=== PATIENT | male | born 1950 | race Caucasian/White ===

== ENCOUNTER → 2023-10-31 10:23 | Outpatient (REF) | payer MEDICAID, OTHER, SELFPAY | LOC: HWRAD 10:23 | PROVIDERS: ATTENDING PHYSICIAN Specialist; FAMILY PHYSICIAN Internal Medicine | DX: C67.4 Malignant neoplasm of posterior wall of bladder (principal) | CPT/HCPCS: 74178; Q9967 ==

== ENCOUNTER 2023-11-24 06:28 | Day surgery (SDC) | payer OTHER, SELFPAY ==
[2023-11-24] VITALS (12 sets, daily range): BP systolic 133–186; BP diastolic 63–90; BMI 29.0
[2023-11-24 08:45] LABS: Glucose - Point of Care 172 mg/dl (70-99)
[2023-11-24] MEDS: NORMOSOL-R 1000 IV (08:52)
[2023-11-24] MEDS: CYSVIEW KIT 100 MG INTRAVES (08:59)
[2023-11-24] MEDS: Pyridium 200 MG PO (11:04)
[2023-11-24] MEDS: SYRINGE NON-PUMP 50 ML IRRIG ×2 (11:07→11:08)
[2023-11-24] MEDS: SYRINGE NON-PUMP 50 MG IRRIG ×2 (11:07→11:08)
[2023-11-24] MEDS: DILAUDID 0.25 MG IV (11:19)
[2023-11-24 12:32] LABS: Glucose - Point of Care 188 mg/dl (70-99)
== END 2023-11-24 14:30 ==
LOC: SDS 06:28
PROVIDERS: ATTENDING PHYSICIAN Specialist
DX: C67.4 Malignant neoplasm of posterior wall of bladder (principal); Z86.008 Personal history of in-situ neoplasm of other site; Z85.51 Personal history of malignant neoplasm of bladder
CPT/HCPCS: 52234; 51720; C9738; 88307; 82962; 93005; A9589; J9201

== ENCOUNTER → 2024-02-16 09:49 | Outpatient (REF) | payer OTHER, SELFPAY | LOC: WDC 09:49 | PROVIDERS: ATTENDING PHYSICIAN Surgery; FAMILY PHYSICIAN Internal Medicine | DX: N63.20 Unspecified lump in the left breast, unspecified quadrant (principal); N63.22 Unspecified lump in the left breast, upper inner quadrant | CPT/HCPCS: 76642; 77062; 77066 ==

== ENCOUNTER 2024-08-13 22:39 | Inpatient (IN) | payer MEDICARE, OTHER, SELFPAY ==
[2024-08-13] VITALS (7 sets, daily range): BP systolic 126–166; BP diastolic 70–87; BMI 26.5
[2024-08-13 17:40] LABS: % Basophils 0.3 % (0-2); % Immature Granulocytes 0.4 % (0-0.5); % Lymphocytes 8.8 % (20.5-51.1); % Monocytes 7.8 % (1.7-9.3); % Neutrophils 82.7 % (42.2-75.2); Absolute Immature Granulocytes 0.1 10^3/uL (0-0.05); Absolute Lymphocytes 1.4 10^3/uL (1.2-3.4); Absolute Monocytes 1.2 10^3/uL (0.1-0.6); Absolute Neutrophils 12.9 10^3/uL (1.4-6.5); Hematocrit 35.6 % (39.0-52.0); Hemoglobin 12.1 g/dL (13.0-18.0); Mean Corpuscular Volume 88.1 fL (80.0-94.0); Mean Platelet Volume 9.1 fL (7.4-10.4); Nucleated Red Blood Cells % 0 % (-); Platelet Count 345 10^3/uL (130-400); Red Blood Cell Count 4.04 10^6/uL (4.70-6.10); Red Cell Dist. Width 13.7 % (11.5-14.5); White Blood Cell Count 15.6 10^3/uL (4.8-10.8)
--- NOTE | 2024-08-13 17:42 | ED.GENMED ---
History of Present Illness
<Seven Ballard MD, Resident - Last Filed: 08/13/24 21:00>
General
Chief Complaint: Chest Problem
Source: patient
Time Seen by Provider: 08/13/24 17:42
Nursing documentation reviewed up to this point in time: agreed with
Travel History
Have you traveled to any high risk areas for coronavirus over the past 14 days?: No
Have you had any contact with someone who has COVID-19?: No
Do you have any symptoms of coronavirus? Fever > 100 degrees, chills, cough, shortness of breath, sore throat, loss of taste or smell, muscle aches, or headache?: No
History of Present Illness
History of Present Illness:
73-year-old male with PMH of A-fib, DVT, left hemiplegia, vascular dementia, essential hypertension, hyperlipidemia, GERD, bladder cancer, diet-controlled diabetes mellitus, autism, anxiety and depression, chronic pain who presented to the emergency
department from [facility] stating that he has chest pain, nausea and vomiting since yesterday. He reports that he called the ambulance on himself due to concerns that he has something going on in his chest.
Past History
<Seven Ballard MD, Resident - Last Filed: 08/13/24 21:00>
Past History
ED Past Medical History: Arrthythmia (fib), CVA, GERD, HTN, Hypercholesterolemia, NIDDM and Psychiatric
Patient has exhibited threatening behavior?: No
Social History
Tobacco: Non-smoker
Alcohol: None
Drug: None
[facility]: [facility]
Review of Systems
<Seven Ballard MD, Resident - Last Filed: 08/13/24 21:00>
Review of Systems
Allergies reviewed?: Yes
All Other Systems: ROS reviewed and negative except as documented in HPI and ROS
Phy Exam
<Seven Joao Arinze, MD, Resident - Last Filed: 08/13/24 21:00>
General Physical Exam
General Presentation: no apparent distress
General age: appears stated age
General Skin: warm and dry
General Habitus: frail
General Mental: alert
General Hydration: dry mucous membranes
Cardiovascular Exam
Cardiovascular Exam: regular rate/rhythm, no edema and normal peripheral pulses
Pulmonary Exam
Pulmonary Exam: other (Bilateral crackles)
Cough: coarse cough
Respirations: rapid
Breath Sounds: Crackles: generalized
Gastrointestinal Exam
Gastrointestinal Exam: normal bowel sounds, non tender, soft and non distended
Neurological Exam
Neurological Exam: alert and oriented x3
Skin Exam
Skin Exam: normal color and warm/dry
Psychiatric Exam
Psychiatric Exam: normal mood/affect
Sepsis
<Seven Ballard MD, Resident - Last Filed: 08/13/24 21:00>
Sepsis Screening
Sepsis Assessment: Sepsis
Sepsis Screening: Worsening O2 Saturation
Sepsis Screen
Sepsis Screen: Sepsis
Date: 08/13/24
Time: 21:00
<Angel Colmenares, DO - Last Filed: 08/13/24 19:21>
Sepsis Screen
Sepsis Screen: Sepsis
Date: 08/13/24
Time: 19:19
Course
<Seven Ballard MD, Resident - Last Filed: 08/13/24 21:00>
Orders/Labs/Results
Orders:
Orders
08/13/24 17:15
Electrocardiogram (*1) Urgent
Reason for Study: Chest Pain
EKG- Treatment ONCE
08/13/24 17:30
Comprehensive Metabolic Panel Urgent
08/13/24 17:31
Complete Blood Count/With Diff Urgent
Troponin I Urgent
08/13/24 17:57
CR Chest - 2 Views Urgent
Comment:
Reason For Exam: Chest pain
08/13/24 17:58
Urinalysis Reflex To Culture Urgent
08/13/24 18:01
0.9% Sodium Chloride 1000 ml [Nss] 1,000 ml IV BOLUS
08/13/24 18:03
O2 Therapy [RESP] Stat
Titrate/Wean O2 to maintain O2 sat greater than (%): 92
08/13/24 18:07
IV Insert/Care/Rem.- Treatment PRN
08/13/24 18:09
Vital Signs- Treatment ONCE
Frequency: Hourly
COVID-19 Antigen Urgent
Source: Nasal Swab
Influenza A+B Rapid Molecular Urgent
MICKIE Source: Nasal Swab
Specimen Description:
Pulse Ox/cont/shift [RESP] Stat
Quantity: 1
08/13/24 18:43
Lactic Acid Urgent
08/13/24 19:23
Cefepime HCl [Maxipime] 2,000 mg IV NOW STA
08/13/24 19:27
0.9% Sodium Chloride 1000 ml [Nss] 1,500 ml IV NOW STA
08/13/24 19:35
Vancomycin [Vancocin] 2,000 mg 0.9% Sodium Chloride 500 ml [Nss] 500 ml IV NOW
08/13/24 19:42
MRSA Screen Routine
MICKIE Source: Nose
Specimen Description:
Respiratory Syncytial Virus Urgent
MICKIE Source: Nasal Swab
Specimen Description:
Date Specimen was Collected: 08/13/24
Time Specimen was Collected: 19:22
Abnormal Lab Results
08/13/24 08/13/24 08/13/24
17:30 17:31 18:43
WBC 15.6 H 10^3/uL
(4.8-10.8)
RBC 4.04 L 10^6/uL
(4.70-6.10)
Hgb 12.1 L g/dL
(13.0-18.0)
Hct 35.6 L %
(39.0-52.0)
Abs Immat Gran (auto) 0.1 H 10^3/uL
(0-0.05)
Absolute Neuts (auto) 12.9 H 10^3/uL
(1.4-6.5)
Absolute Monos (auto) 1.2 H 10^3/uL
(0.1-0.6)
Neutrophils % 82.7 H %
(42.2-75.2)
Lymphocytes % 8.8 L %
(20.5-51.1)
BUN 27 H mg/dl
(9-20)
Creatinine 1.5 H mg/dL
(0.7-1.3)
Glucose 289 H mg/dl
(70-99)
Lactic Acid 3.7 H mmol/L
(0.7-2.0)
08/13/24 17:31
08/13/24 17:30
Vital Signs
Initial and Last Documented VS:
Initial Vital Signs
Temp Pulse Resp Pulse Ox
98.4 F 117 20 88
08/13/24 17:16 08/13/24 17:16 08/13/24 17:16 08/13/24 17:16
Last Documented Vital Signs
Temp Pulse Resp BP Pulse Ox
98.4 F 111 27 130/86 92
08/13/24 17:16 08/13/24 18:30 08/13/24 18:30 08/13/24 18:00 08/13/24 18:30
<Angel HMallory Colmenares DO - Last Filed: 08/13/24 19:21>
Orders/Labs/Results
Orders:
Orders
08/13/24 17:15
Electrocardiogram (*1) Urgent
Reason for Study: Chest Pain
EKG- Treatment ONCE
08/13/24 17:30
Comprehensive Metabolic Panel Urgent
08/13/24 17:31
Complete Blood Count/With Diff Urgent
Troponin I Urgent
08/13/24 17:57
CR Chest - 2 Views Urgent
Comment:
Reason For Exam: Chest pain
08/13/24 17:58
Urinalysis Reflex To Culture Urgent
08/13/24 18:01
0.9% Sodium Chloride 1000 ml [Nss] 1,000 ml IV BOLUS
08/13/24 18:03
O2 Therapy [RESP] Stat
Titrate/Wean O2 to maintain O2 sat greater than (%): 92
08/13/24 18:07
IV Insert/Care/Rem.- Treatment PRN
08/13/24 18:09
Vital Signs- Treatment ONCE
Frequency: Hourly
COVID-19 Antigen Urgent
Source: Nasal Swab
Influenza A+B Rapid Molecular Urgent
MICKIE Source: Nasal Swab
Specimen Description:
Pulse Ox/cont/shift [RESP] Stat
Quantity: 1
08/13/24 18:43
Lactic Acid Urgent
08/13/24 19:23
Cefepime HCl [Maxipime] 2,000 mg IV NOW STA
08/13/24 19:27
0.9% Sodium Chloride 1000 ml [Nss] 1,500 ml IV NOW STA
08/13/24 19:35
Vancomycin [Vancocin] 2,000 mg 0.9% Sodium Chloride 500 ml [Nss] 500 ml IV NOW
08/13/24 19:42
MRSA Screen Routine
MICKIE Source: Nose
Specimen Description:
Respiratory Syncytial Virus Urgent
MICKIE Source: Nasal Swab
Specimen Description:
Date Specimen was Collected: 08/13/24
Time Specimen was Collected: 19:22
Abnormal Lab Results
08/13/24 08/13/24 08/13/24
17:30 17:31 18:43
WBC 15.6 H 10^3/uL
(4.8-10.8)
RBC 4.04 L 10^6/uL
(4.70-6.10)
Hgb 12.1 L g/dL
(13.0-18.0)
Hct 35.6 L %
(39.0-52.0)
Abs Immat Gran (auto) 0.1 H 10^3/uL
(0-0.05)
Absolute Neuts (auto) 12.9 H 10^3/uL
(1.4-6.5)
Absolute Monos (auto) 1.2 H 10^3/uL
(0.1-0.6)
Neutrophils % 82.7 H %
(42.2-75.2)
Lymphocytes % 8.8 L %
(20.5-51.1)
BUN 27 H mg/dl
(9-20)
Creatinine 1.5 H mg/dL
(0.7-1.3)
Glucose 289 H mg/dl
(70-99)
Lactic Acid 3.7 H mmol/L
(0.7-2.0)
08/13/24 17:31
08/13/24 17:30
Vital Signs
Initial and Last Documented VS:
Initial Vital Signs
Temp Pulse Resp Pulse Ox
98.4 F 117 20 88
08/13/24 17:16 08/13/24 17:16 08/13/24 17:16 08/13/24 17:16
Last Documented Vital Signs
Temp Pulse Resp BP Pulse Ox
98.4 F 111 27 130/86 92
08/13/24 17:16 08/13/24 18:30 08/13/24 18:30 08/13/24 18:00 08/13/24 18:30
<Seven Ballard MD, Resident - Last Filed: 08/13/24 21:00>
MDM/Problems Addressed
MDM/Problems Addressed:
73-year-old male with PMH of diet controlled diabetes mellitus, hypertension, chronic pain syndrome who presented to the emergency department with chest pain, nausea and vomiting that worsened in the past 24 hours. While in the ED, he was
tachycardic, tachypneic, hypoxic saturating at 88% on room air and 92% on 4 L NC O2. Differential diagnosis include severe sepsis Secondary to CAP vs acute viral infection from COVID, flu, or RSV. His lab was remarkable for leukocytosis WBC count
15.6 with left shift, troponin was negative. He appeared dehydrated with elevated BUN and creatinine. COVID-19, flu, RSV serologies pending. Lactic acid level, CXR, urinalysis pending. In the meantime, we will give sepsis protocol IV bolus
normal saline
Chronic conditions affecting care: Neurological disorder
<Seven Ballard MD, Resident - Last Filed: 08/13/24 21:00>
*Pulse Oximetry
Patient hypoxic: yes
*EKG
Interpreted by ED Provider?: Yes
Interpretation: abnormal
Comparison EKG: changes noted
Heart Rate: 113
Rate: tachycardiac
Rhythm: sinus
[place]: left axis deviation
Interval: long QT
QRS Pattern: normal QRS
Ischemia: no ischemia
*Critical Care Note
Total Time (30-74mins, 75-104mins- exclusive of procedures): Not Applicable
Data Reviewed
Review of Other/Old Records Reveals: Labs (Creatinine 1.2)
<Seven Ballard MD, Resident - Last Filed: 08/13/24 21:00>
Update Note
Update Note:
19: 30 lactic acid level 3.7. COVID-19 serology negative. CXR positive for left lower lobe pneumonia/atelectasis. Patient will most likely need hospitalization for antibiotics and supportive treatments.
ED Attending Note
<Seven Ballard MD, Resident - Last Filed: 08/13/24 21:00>
-
Portions of this chart may have been created with voice recognition software.� Occasional wrong word or��sound alike� substitutions may have occurred due to the inherent limitations of voice recognition software.
<Angel Colmenares, DO - Last Filed: 08/13/24 19:21>
ED Attending Note
Patient seen and examined by attending physician: Yes
I performed a history and physical exam of patient and discussed management with resident, I reviewed resident's note and agree with documented findings and plan of care.: Yes
ED Attending Note:
I agree with the residents note. Patient presents with chest pain, cough, nausea vomiting diarrhea. Patient states he is having pain in his chest at the time my evaluation. He is observed to have a moist rattling cough. Patient seems somewhat
confused than unable to provide a detailed history.
General: Awake, Alert, to person.
Vitals: Tachycardic, hypoxic
Head: Atraumatic
Eyes: Pupils equal, EOMI
Throat: Airway intact, no exudates
Neck: Trachea midline
Lungs: Crackles bilateral bases
Heart: Tachycardic, regular rate, no murmurs
Abd: Soft, Nontender, No pulsatile mass
Neuro: Nonfocal
Skin: Warm, dry, no rash
Extremities: pulses equal b/l, no edema
Patient presents with cough, hypoxia.
White blood cell count elevated 15.6. He appears dry and his BUN and creatinine are mildly elevated. Lactic acid elevated at 3.7. 1 L of IV fluid ordered as a bolus. Given his elevated lactic acid and no evidence of a history of heart failure I
will increase the fluid bolus to a sepsis fluid bolus. Awaiting chest x-ray but likely patient has pneumonia will require hospitalization for supportive care and IV antibiotics.
Discharge Plan
Departure
Patient Disposition: Home (Routine Discharge)
Date of Disposition: 08/13/24
Time of Disposition: 20:44
Admit to: Med/Surg
Admit to doctor: Cole Buenrostro
Patient with high blood pressure during this ER visit?: Yes
Condition: Fair
Covid-19: Not Applicable
Discharge Problem:
Sepsis, HTN (hypertension), Diabetes
Prescriptions:
No Action
sennosides 8.6 mg Tablet
8.6 mg PO DAILY
acetaminophen [Tylenol] 325 mg Tablet
650 mg PO Q6H MDD 3 gm PRN (Reason: mild pain, fever > 100.5)
atorvastatin 20 mg Tablet
20 mg PO DAILY
lidocaine [Lidocaine Pain Relief] 4 % Adhesive Patch,Medicated
1 patch TOPICAL DAILY
Rx Instructions:
remove @ HS
trazodone 50 mg Tablet
25 mg PO HS
clopidogrel 75 mg Tablet
75 mg PO DAILY
Patient Comments:
this was stopped per surgeon's nstructions- [facility] nurse unsure of the date.
Rx Instructions:
per penitentiary
meloxicam 7.5 mg Tablet
7.5 mg PO BID
docusate sodium [Colace] 100 mg Capsule
200 mg PO DAILY
metoprolol tartrate 25 mg Tablet
12.5 mg PO DAILY
Metamucil Fiber Singles 3.4 gram Powder In Packet
1 packet PO DAILY
loratadine 10 mg Capsule
10 mg PO DAILY
aspirin 81 mg Capsule
81 mg PO DAILY
Patient Comments:
this was stopped per surgeon's instructions- [facility] nurse unsure of date.
magnesium hydroxide [Milk of Magnesia] 400 mg/5 mL Suspension
30 ml PO HSPRN PRN (Reason: No BM x 3 days)
bisacodyl [Dulcolax (bisacodyl)] 10 mg Suppository
10 mg [place] DAILY PRN (Reason: IF NO BM AFTER MOM)
amlodipine [Norvasc] 10 mg Tablet
10 mg PO DAILY
calcium carbonate [Tums] 200 mg calcium (500 mg) Tablet,Chewable
200 mg PO QID PRN (Reason: indigestion)
Referrals:
Jc Whitaker MD [Family Provider] -
Interventions
Interventions:
*Risk Screen - Suicide Last Done: 08/13/24 17:20
*General Assessment Last Done: 08/13/24 17:20
*Neglect/Abuse Screening Last Done: 08/13/24 17:20
ED- Fall Risk Assessment Last Done: 08/13/24 17:22
*ED COVID-19 Vaccine History Last Done: 08/13/24 17:20
ED- Cardiac Assessment Last Done: 08/13/24 17:21
ED- Pulmonary Assessment Last Done: 08/13/24 17:21
Discharge Date and Time
Print Language: UPPER SORBIAN
[2024-08-13 17:50] LABS: ALT (SGPT) 22 U/L (0-50); AST (SGOT) 21 U/L (17-59); Alkaline Phosphatase 97 U/L (38-126); Blood Urea Nitrogen 27 mg/dl (9-20); Calcium 9.3 mg/dl (8.4-10.2); Carbon Dioxide 22 mmol/L (22-30); Chloride 104 mmol/L (98-107); Estimated Creatinine Clearance 41 ml/min; Glucose 289 mg/dl (70-99); Potassium 3.7 mmol/L (3.5-5.1); Sodium 140 mmol/L (135-145); Total Bilirubin 0.9 mg/dl (0.2-1.3); Total Protein 6.8 g/dl (6.3-8.2); eGFR 48.25
[2024-08-13 18:02] LABS: Troponin I 0.022 ng/ml
[2024-08-13] MEDS: NSS 1000 IV (18:08)
[2024-08-13 19:00] LABS: Lactic Acid 3.7 mmol/L (0.7-2.0)
[2024-08-13 19:01] LABS: COVID-19 Antigen Negative (Negative)
[2024-08-13] MEDS: MAXIPIME 2000 MG IV (19:43)
[2024-08-13] MEDS: NSS 1500 ML IV (19:44)
[2024-08-13] MEDS: VANCOCIN 540 MG IV (21:25)
--- NOTE | 2024-08-13 22:17 | HPS.HSE ---
Family Physician
-
Family Physician: Jc Whitaker
Chief Complaint
-
Cough, N/V
History of Present Illness
Patient is a 73y M with PMH significant for ASCVD/ prior CVA, hypertension and DM-II who presents to ED from local [place] complaining of cough and left-sided chest discomfort. Patient states that he had an episode of emesis earlier today at the [place].
Following this he developed a harsh cough and some left-sided chest discomfort. Patient was transported to the ED for further evaluation. Patient states that he was feeling well prior to the episode of emesis. He denies any nausea at present.
Medical History
Past Medical History
Past Medical History: Reports Other
Additional Past Medical History:
ASCVD
Left Hemiparesis s/p CVA
Hypertension
DM-II
Atrial Fibrillation - Unknown Type
Anxiety / Depression
Autism
GERD
Bladder Cancer
Past Surgical History: Reports Other
Additional Past Surgical History:
TURBT
Social History
Tobacco: Non-smoker
Alcohol: None
Drug: None
Living: Group Home
Family History
Family History: Not pertinent
Allergies / Home Medications
Allergies reflects when Allergies were last updated in [facility].
Home Medications with original date entered in [facility]
Allergy/Medication List:
Allergies
Allergy/AdvReac Type Severity Reaction Status Date / Time
Penicillins Allergy Unknown Verified 08/13/24 17:15
theophylline Allergy Unknown Verified 08/13/24 17:15
Home Medications
acetaminophen 325 mg tablet (Tylenol) 650 mg PO Q6H PRN mild pain, fever > 100.5 05/29/22
aspirin 81 mg capsule 81 mg PO DAILY Blood clot prevention/tx 05/29/22
atorvastatin 20 mg tablet 20 mg PO DAILY High cholesterol 05/29/22
clopidogrel 75 mg tablet 75 mg PO DAILY Blood clot prevention/tx 05/29/22
docusate sodium 100 mg capsule (Colace) 200 mg PO DAILY Constipation 05/29/22
lidocaine 4 % topical patch (Lidocaine Pain Relief) 1 patch topical DAILY Pain 05/29/22
loratadine 10 mg capsule 10 mg PO DAILY Allergies 05/29/22
metoprolol tartrate 25 mg tablet 12.5 mg PO DAILY Blood pressure 05/29/22
psyllium husk (aspartame) 3.4 gram oral powder packet (Metamucil Fiber Singles) 1 packet PO DAILY 05/29/22
sennosides 8.6 mg tablet 8.6 mg PO DAILY Constipation 05/29/22
trazodone 50 mg tablet 25 mg PO HS Mental Health/Anxiety 05/29/22
magnesium hydroxide 400 mg/5 mL oral suspension (Milk of Magnesia) 30 ml PO HSPRN PRN No BM x 3 days 09/20/22
bisacodyl 10 mg rectal suppository (Dulcolax (bisacodyl)) 10 mg [place] DAILY PRN IF NO BM AFTER MOM 02/22/23
amlodipine 10 mg tablet (Norvasc) 10 mg PO DAILY 07/14/23
calcium carbonate (Tums) 200 mg PO QID PRN indigestion 07/14/23
cholecalciferol (vitamin D3) 25 mcg (1,000 unit) tablet 25 mcg PO DAILY 08/13/24
metformin 500 mg tablet 1,000 mg PO DAILY 08/13/24
metformin 500 mg tablet 500 mg PO QPM 08/13/24
Review of Systems
-
History Source: Patient
A 12 point ROS was completed and negative except as noted: Yes
Constitutional: Denies Fever or Chills
Respiratory: Reports Cough and Trouble Breathing
Cardiac: Reports Chest Pain; Denies Diaphoresis or Palpitations
Abdomen/GI: Reports Nausea and Vomiting; Denies Abdominal Pain or Diarrhea
: Denies Dysuria, Frequency or Flank Pain
Neurological: Denies Dizzy or Headache
Psych: Denies Depression or Anxiety
Physical Exam
Vital Signs
Vital Signs
Temp Pulse Resp BP Pulse Ox
98.4 F 111 27 130/86 92
08/13/24 17:16 08/13/24 18:30 08/13/24 18:30 08/13/24 18:00 08/13/24 18:30
Physical Exam
General: Other (73y M in no acute distress. Pos cough during exam.)
HEENT: Moist mucous membranes, PERRLA and Other (Thick neck.)
Respiratory: Other (Coarse breath sounds R > L lower lung sawyer. No wheezing.)
Cardiac: S1/S2 and Irregular Rhythm; No Murmur
GI: Soft, Non Tender, Non Distended and Normal Bowel Sounds
Musculoskeletal: No Clubbing and No Edema
Neuro: AO x 3 and Other (L weakness - chronic / unchanged.)
Laboratory Results
-
08/13/24 17:31
08/13/24 17:30
Laboratory Results
Lactic Acid 3.7 mmol/L (0.7-2.0) H 08/13/24 18:43
Total Bilirubin 0.9 mg/dl (0.2-1.3) 08/13/24 17:30
AST 21 U/L (17-59) 08/13/24 17:30
ALT 22 U/L (0-50) 08/13/24 17:30
Alkaline Phosphatase 97 U/L (38-126) 08/13/24 17:30
Troponin I 0.022 ng/ml 08/13/24 17:31
Impression/Plan
-
A/P: Patient is a 73y M with PMH significant for CVA, HTN and DM-II who presents to ED complaining of cough and chest pain s/p emesis episode at [place] today.
Pneumonia
Sepsis secondary to the above
- Admit for further evaluation and treatment.
- Patient presents with tachycardia, tachypnea and leukocytosis with CXR suggesting basilar infiltrate c/w pneumonia.
- ? secondary to aspiration given reported emesis prior to onset of cough.
- Abx for CAP for now.
- Aspiration precautions / formal Speech evaluation.
- Supportive care including mucolytics, O2, etc.
- Follow for clinical improvement.
CHIQUITA
- SCr = 1.5 compared to prior baseline of 1.2.
- Likley secondary to sepsis as noted above.
- IVFs overnight and follow for improvement in renal function.
Chronic Atrial Fibrillation by history
- Currently in sinus arrhythmia.
- Continue current medications including beta-rozina.
- Patient is not currently maintained on OAC - unclear why.
Benign Hypertension
- Stable. Continue current meds. Change once daily metoprolol to succinate.
DM-II
- Stable. Hold metformin acutely.
- Follow glucose and cover with SSI as needed.
- Update A1C.
ASCVD
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
- Stable. No new neurologic deficits.
- Continue DAPT, statin, etc.
- Follow for any clinical changes.
- PT / OT evaluations.
Anxiety / Depression
- Stable. Continue outpatient medications.
DVT Prophylaxis: Subcut Heparin
Code Status: DNR
[2024-08-14] VITALS (24 sets, daily range): BP systolic 107–180; BP diastolic 57–146; PULSE 104–120; O2SAT 89; BMI 26.5
[2024-08-14 00:26] LABS: Lactic Acid 2.1 mmol/L (0.7-2.0)
[2024-08-14] MEDS: TYLENOL 650 MG PO ×3 (00:48→23:26)
[2024-08-14] MEDS: VENTOLIN NEBULES 2.5 MG INH ×3 (00:56→18:16)
[2024-08-14] MEDS: ROCEPHIN 1000 MG IV ×2 (01:00→05:47)
[2024-08-14] MEDS: LR 1000 IV ×2 (01:07→11:55)
[2024-08-14 03:17] LABS: Troponin I 0.034 ng/ml
[2024-08-14] MEDS: STERILE WATER FOR INJECTION 10 ML IV ×2 (05:47→20:42)
[2024-08-14 06:03] LABS: Blood Urea Nitrogen 22 mg/dl (9-20); Calcium 8.3 mg/dl (8.4-10.2); Carbon Dioxide 18 mmol/L (22-30); Chloride 111 mmol/L (98-107); Estimated Creatinine Clearance 56 ml/min; Glucose 202 mg/dl (70-99); Sodium 142 mmol/L (135-145); eGFR > 60.00
[2024-08-14 06:04] LABS: Hematocrit 32.5 % (39.0-52.0); Mean Corp Hgb Conc. 33.8 g/dL (33.0-37.0); Mean Corpuscular Hgb 29.9 pg (27.0-31.0); Mean Corpuscular Volume 88.3 fL (80.0-94.0); Mean Platelet Volume 8.9 fL (7.4-10.4); Platelet Count 280 10^3/uL (130-400); Red Blood Cell Count 3.68 10^6/uL (4.70-6.10); Red Cell Dist. Width 13.8 % (11.5-14.5); White Blood Cell Count 14.4 10^3/uL (4.8-10.8)
[2024-08-14 06:18] LABS: Troponin I 0.024 ng/ml
--- NOTE | 2024-08-14 07:52 | W.PN.HOSP.TC ---
Today's Communication/Plan
-
ACADEMIC DEAN called for worsening hypoxia
Breathing treatments, CT Chest to check for PE, troponins, cbc, metabolic panel, EKG, broaden antibiotic coverage, pulmonary toilet
Assessment / Plan
Assessment / Plan
Physical Exam
General: Other (73y M in no acute distress. Pos cough during exam.)
HEENT: Moist mucous membranes, PERRLA and Other (Thick neck.)
Respiratory: Other (Coarse breath sounds R > L lower lung sawyer. No wheezing.)
Cardiac: S1/S2 and Irregular Rhythm; No Murmur
GI: Soft, Non Tender, Non Distended and Normal Bowel Sounds
Musculoskeletal: No Clubbing and No Edema
Neuro: AO x 3 and Other (L weakness - chronic / unchanged.)
Assessment/Plan
Patient is a 73y M with PMH significant for CVA, HTN and DM-II who presented to ED complaining of cough and chest pain s/p emesis episode at [place].
Acute Hypoxic Respiratory Failure Secondary to Pneumonia vs. other
Rapid Response on 08/14/24 due to hypoxia
-Patient hypoxic to the 80s needing NRB mask, but mentating well
-Duonebs scheduled with inhaled hypertonic saline
-Broaden antibiotics to Vancomycin and Merrem (patient has unspecified allergy to penicillins) for Pneumonia
-Check CT Chest PE
-EKG
-Troponins Q6H
-ProBNP
-Transfer to IMU
-Echocardiogram
Pneumonia
Sepsis secondary to the above
- Patient presented with tachycardia, tachypnea and leukocytosis with CXR suggesting basilar infiltrate c/w pneumonia.
- ? secondary to aspiration given reported emesis prior to onset of cough.
- Abx
- Aspiration precautions / formal Speech evaluation.
- Supportive care including mucolytics, O2, etc.
- Follow for clinical improvement.
CHIQUITA
- SCr = 1.5 compared to prior baseline of 1.2. --> now improving
- Likely secondary to sepsis as noted above.
- IVFs LR were given overnight and follow for improvement in renal function.
Chronic Atrial Fibrillation by history
- Currently in sinus arrhythmia.
- Continue current medications including beta-rozina.
- Patient is not currently maintained on OAC - unclear why.
Benign Hypertension
- Stable. Continue current meds. Change once daily metoprolol to succinate.
DM-II
- Stable. Hold metformin acutely.
- Follow glucose and cover with SSI as needed.
- Update A1C.
ASCVD
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
- Stable. No new neurologic deficits.
- Continue DAPT, statin, etc.
- Follow for any clinical changes.
- PT / OT evaluations.
Anxiety / Depression
- Stable. Continue outpatient medications.
DVT Prophylaxis: Subcut Heparin
Code Status: DNR
Rapid response is a high risk encounter.
Anticipated Discharge: > 48 hours
Subjective/Interval History
-
Date of Service: August 14, 2024
Objective Data
-
Labs:
Laboratory Results
08/14/24
05:27
WBC 14.4 H
Hgb 11.0 L
Hct 32.5 L
Plt Count 280
Sodium 142
Potassium 4.0
Chloride 111 H
Carbon Dioxide 18 L
BUN 22 H
Creatinine 1.1
Glucose 202 H
Calcium 8.3 L
Vital Signs:
Vital Signs
Temp Pulse Resp BP Pulse Ox
98.4 F 97 30 133/77 90
08/13/24 17:16 08/14/24 07:30 08/14/24 07:30 08/14/24 07:00 08/14/24 07:30
[2024-08-14] MEDS: NORVASC 10 MG PO (08:24)
[2024-08-14] MEDS: PLAVIX 75 MG PO (08:24)
[2024-08-14] MEDS: SENOKOT 8.6 MG PO (08:24)
[2024-08-14] MEDS: COLACE 200 MG PO (08:24)
[2024-08-14] MEDS: LIPITOR 20 MG PO (08:24)
[2024-08-14] MEDS: VIBRAMYCIN PO ×2 (08:24→08:28)
[2024-08-14] MEDS: TOPROL XL 12.5 MG PO (08:24)
[2024-08-14] MEDS: LOW STRENGTH ASPIRIN 81 MG PO (08:25)
[2024-08-14] MEDS: HEPARIN 5000 UNITS SC ×2 (08:25→20:42)
[2024-08-14] MEDS: VIBRAMYCIN 100 MG PO (08:34)
[2024-08-14] MEDS: CLARITIN 10 MG PO (08:56)
[2024-08-14] MEDS: VISBIOME 1 CAP PO (09:47)
[2024-08-14] MEDS: NOVOLOG FLEXPEN-LOW RESISTANCE SC ×2 (10:02→17:27)
--- NOTE | 2024-08-14 11:00 | PTOTSP ---
Patient appears at baseline level, half-way staff uses mechanical lift to transfer patient to w/c at baseline, no skilled PT needed.
[2024-08-14 11:32] LABS: Glycohemoglobin (HgbA1c) 8.3 % (4.0-5.6)
--- NOTE | 2024-08-14 12:13 | WOUNDNOTE ---
WON RN note: Patient admitted with Sepsis, HTN.
See H&P for complete history. Lives at [facility] for [employer].
PMH: NIDDM, A Fib, DVT,HTN,SEPSIS,AUTISM, ANXIETY, Bladder cancer, Ambulatory dysfunction.
Wound Location and type/assessment: Patient admitted with: B/L buttock lines of dark maroon discolored skin, and R distal buttock with small patch of maroon skin, no drainage. Suspect evolving DTI from sitting on something that caused horizontal
skin changes, see picture. Patient states he has an offloading cushion for wheelchair but does not recall what type. Said he does sit in chair for prolonged periods of time. He said he has a bed at [facility] that plugs in but can't confirm is air bed.
Patient turned with assist of nurse Craven, patient with L sided hemiplegia. Patient incontinent of urine, skin care given by nurse and brief changed. Heels are intact, sacrum intact.
Appetite: Swallowing study done.
Pressure redistribution devices in place: On Versa care air bed, pillow placed under calves. Air cushion when sitting.
Plan: Silicone foam applied, would benefit from sacral silicone foam next dressing change. Applied foam adhesives to heels to protect. Repositioned patient in bed with pillow under L arm. Turning schedule in effect.
Will confirm orders with hospitalist and updated nurse. Updated care plan and will follow as needed.
Note to case management of equipment requested for discharge: Air mattress
Recommend follow up at wound care center upon discharge.
[2024-08-14 12:27] LABS: Glucose - Point of Care 241 mg/dl (70-99)
[2024-08-14] MEDS: NOVOLOG FLEXPEN-LOW RESISTANCE 2 UNITS SC (12:27)
[2024-08-14] MEDS: ROBITUSSIN DM 5 ML PO ×2 (12:30→23:18)
--- NOTE | 2024-08-14 12:40 | PTOTSP ---
Speech Language Pathology:
Initial ST assessment completed at bedside. Patient presented with s/s oral dysphagia. No overt s/s aspiration observed across all PO trials assessed, unable to r/o at bedside. Aspiration risk present given current respiratory status and imaging
results and dependence for feeding with residual L-sided weakness.
Recommend:
1) Continue with regular solid, thin liquid diet
2) Meds one at a time as tolerated
3) Full assistance/supervision with meals
4) Aspiration precautions including upright positioning, slow rate, small bites/sips, rest breaks as needed
5) PO intake ONLY if SpO2 >90% and RR <30
ST to continue to follow to monitor diet tolerance and determine need for further objective assessment
[2024-08-14 16:31] LABS: Troponin I 0.031 ng/ml
[2024-08-14 17:15] LABS: Glucose - Point of Care 169 mg/dl (70-99)
[2024-08-14 18:10] LABS: Glucose - Point of Care 161 mg/dl (70-99)
[2024-08-14] MEDS: DUONEB INH (18:42)
[2024-08-14 18:59] LABS: % Basophils 0.1 % (0-2); % Eosinophils 0.3 % (0-6); % Immature Granulocytes 0.7 % (0-0.5); % Lymphocytes 9.9 % (20.5-51.1); % Monocytes 7.4 % (1.7-9.3); % Neutrophils 81.6 % (42.2-75.2); Absolute Immature Granulocytes 0.1 10^3/uL (0-0.05); Absolute Lymphocytes 1.5 10^3/uL (1.2-3.4); Absolute Monocytes 1.1 10^3/uL (0.1-0.6); Absolute Neutrophils 11.9 10^3/uL (1.4-6.5); Hematocrit 33.2 % (39.0-52.0); Hemoglobin 11.2 g/dL (13.0-18.0); Mean Corp Hgb Conc. 33.7 g/dL (33.0-37.0); Mean Corpuscular Hgb 29.7 pg (27.0-31.0); Mean Corpuscular Volume 88.1 fL (80.0-94.0); Mean Platelet Volume 8.9 fL (7.4-10.4); Nucleated Red Blood Cells % 0 % (-); Platelet Count 295 10^3/uL (130-400); Red Blood Cell Count 3.77 10^6/uL (4.70-6.10); Red Cell Dist. Width 13.6 % (11.5-14.5); White Blood Cell Count 14.6 10^3/uL (4.8-10.8)
[2024-08-14 19:14] LABS: ALT (SGPT) 23 U/L (0-50); AST (SGOT) 27 U/L (17-59); Albumin 3.2 g/dl (3.5-5.0); Alkaline Phosphatase 109 U/L (38-126); Blood Urea Nitrogen 17 mg/dl (9-20); Calcium 8.8 mg/dl (8.4-10.2); Carbon Dioxide 22 mmol/L (22-30); Chloride 105 mmol/L (98-107); Estimated Creatinine Clearance 69 ml/min; Glucose 177 mg/dl (70-99); Potassium 3.6 mmol/L (3.5-5.1); Sodium 137 mmol/L (135-145); Total Bilirubin 1.1 mg/dl (0.2-1.3); Total Protein 6.1 g/dl (6.3-8.2); eGFR > 60.00
[2024-08-14 19:25] LABS: NT-proBNP 1590 pg/ml; Troponin I 0.027 ng/ml
[2024-08-14 19:31] LABS: B.E. -1.7 mmol/L; HCO3 20.9 mmol/L (21-28); O2 Saturation % 92.3 % (94-98); PCO2 28 mmHg (35-48); PO2 60 mmHg (83-108); pH 7.48 (7.35-7.45)
--- NOTE | 2024-08-14 20:21 | PHA.VAN.IN ---
Assessment
- Assessment
Renal Function: Appears similar to baseline
Concomitant Antimicrobials: meropenem
AUC Dosing Plan
- Dosing Variables
Dosing Weight (kg): 78.9
Dosing CrCl (ml/min): 69
Vd coefficient (L/kg): 0.7
- Empiric Dosing
Initial / Loading Dose: received vanc 2000mg 08/13 @ 2125
Maintenance Regimen: vanc 1500mg Q24H
Estimated AUC (mcg*h/mL): 461
Estimated Peak (mcg*h/mL): 35.2
Estimated Trough (mcg/ml): 8.8
Estimated Half Life (H): 11.2
- Monitoring
No levels ordered at this time: consider levels in next few days
Pharmacokinetics Vancomycin I
- -
Patient Age: 73
Patient Sex: Male
Vancomycin Day #: 2
Indication: Pulmonary/Respiratory
Requesting Provider: Dr. Peñaloza
Pertinent Antimicrobial Allergies:
penicillin - unknown
Height / Weight:
Height 5 ft 8 in
Actual Weight 78.9 kg
- Vital Signs / Lab Results
Temp Pulse Resp BP Pulse Ox
99.6 F 103 24 156/89 93
08/14/24 16:38 08/14/24 18:26 08/14/24 18:26 08/14/24 16:38 08/14/24 18:26
Lab Results - Hematology
08/13/24 08/14/24 08/14/24
17:31 05:27 18:30
WBC 15.6 H 14.4 H 14.6 H
Lab Results - Chemistry
08/13/24 08/14/24 08/14/24
17:30 05:27 18:30
BUN 27 H 22 H 17
Creatinine 1.5 H 1.1 0.9
Estimated Creat Clear 41 56 69
Albumin 4.0 3.2 L
08/13/24 08/13/24
18:43 23:57
Lactic Acid 3.7 H 2.1 H
Microbiology Results
08/13/24 19:42 Respiratory Syncytial Virus Ag - Final
Nasal Swab Negative for Respiratory Syncytial Virus.
A false negative result may be obtained with a specimen
collected early in the acute phase. If symptoms persist, a
new specimen should be tested.
08/13/24 18:09 Influenza Types A & B (LAMIN) - Final
Nasal Swab Negative for Influenza A & B, NAAT
Negative results must be combined with clinical observations
and patient history.
Nucleic Acid Amplification test (NAAT)performed on the
[employer] platform.
[2024-08-14] MEDS: SODIUM CHLORIDE 3% FOR INHALATION 1 VIAL INH (20:26)
[2024-08-14] MEDS: DUONEB 3 ML INH (20:26)
[2024-08-14] MEDS: MERREM 500 MG IV (20:42)
[2024-08-14 21:04] LABS: Glucose - Point of Care 156 mg/dl (70-99)
[2024-08-14] MEDS: VANCOCIN 530 MG IV (21:14)
[2024-08-14] MEDS: LR IV (21:15)
[2024-08-14] MEDS: DESYREL 25 MG PO (23:17)
[2024-08-14] MEDS: MUCINEX 600 MG PO (23:18)
[2024-08-15] VITALS (14 sets, daily range): BP systolic 111–191; BP diastolic 66–110; BMI 25.9
[2024-08-15] MEDS: STERILE WATER FOR INJECTION 10 ML IV ×4 (02:28→19:42)
[2024-08-15] MEDS: MERREM 500 MG IV ×4 (02:28→19:41)
--- NOTE | 2024-08-15 02:50 | PTCARENOTE ---
Addendum entered by Maria Antonia Jones RN 08/15/24 06:02:
High flow increased to 60L 80%.
Original Note:
Received pt from [facility] at 20:05. Pt AAOx3, L sided weakness d/t previous stroke. NSR/ST on monitor. VSS. weak pedal pulses. Pt originally on 1L nonrebreather, transitioned to 12L midflow and later upgraded to high flow, currently on HFNC 60L 70%,
SaO2 92%. Lungs coarse with loud, scattered rhonchi throughout. L worse than R. Occasional productive cough, thick, lozano sputum. Suction set up in room. Pt requires frequent oral suctioning. Incontinent bladder, CC#25 applied. Sacral foam intact.
Call felder within reach. Care ongoing.
[2024-08-15 04:21] LABS: Urine Albumin Trace (Neg - Trace); Urine Bilirubin Negative (Negative); Urine Character Clear (Clear); Urine Color Yellow; Urine Glucose 1+ (Negative); Urine Ketone Negative (Negative); Urine Leukocyte Negative (Negative); Urine Nitrite Negative (Negative); Urine Occult Blood 2+ (Negative); Urine Specific Gravity 1.005 (<1.030); Urine Urobilinogen Negative (Neg - 1+)
[2024-08-15 04:39] LABS: Troponin I 0.025 ng/ml
[2024-08-15 05:05] LABS: Blood Urea Nitrogen 14 mg/dl (9-20); Calcium 8.3 mg/dl (8.4-10.2); Carbon Dioxide 24 mmol/L (22-30); Chloride 106 mmol/L (98-107); Estimated Creatinine Clearance 62 ml/min; Glucose 187 mg/dl (70-99); Magnesium 1.6 mg/dl (1.6-2.3); Sodium 141 mmol/L (135-145); eGFR > 60.00
[2024-08-15] MEDS: STERILE WATER FOR INJECTION IV (05:07)
[2024-08-15 05:10] LABS: Potassium 3.6 mmol/L (3.5-5.1)
[2024-08-15 06:39] LABS: Urine Amorphous Seen; Urine Squamous Cell >30 /LPF (Few)
[2024-08-15 06:40] LABS: Urine Red Blood Cell 40-50 /HPF (0-2)
[2024-08-15 06:41] LABS: Urine Bacteria Moderate (Negative)
--- NOTE | 2024-08-15 07:45 | W.PN.HOSP.TC ---
Today's Communication/Plan
-
Continue high flow oxygen, respiratory treatments, antibiotics
Continue to monitor in IMU
Assessment / Plan
Assessment / Plan
Physical Exam
General: Not in acute distress
HEENT: Moist mucous membranes. Thick neck.
Respiratory: Crackles and Rhonchi. ON HIGH FLOW OXYGEN.
Cardiac: S1/S2 and Irregular Rhythm
GI: Soft, Non Tender, Non Distended and Normal Bowel Sounds
Musculoskeletal: No Cyanosis. No Edema.
Neuro: AAO x 3 and Other (L weakness - chronic / unchanged.)
Assessment/Plan
Patient is a 73y M with PMH significant for CVA, HTN and DM-II who presented to ED complaining of cough and chest pain s/p emesis episode at [place].
Acute Hypoxic Respiratory Failure Secondary to Severe Pneumonia and Significant Atelectasis
Rapid Response on 08/14/24 due to hypoxia
Significant bibasilar infiltrates with atelectasis-distribution suggestive of aspiration event
Mild Bilateral Effusions on CT Chest
-Patient was transferred to IMU
-Was on NRB, now on high flow oxygen
-Duonebs scheduled with inhaled hypertonic saline
-CT Chest showed atelectasis and severe pneumonia/bilateral infiltrates
-On 08/14/24, broadened antibiotics to Vancomycin and Merrem (patient has unspecified allergy to penicillins) for Pneumonia - low threshold to discontinue vancomycin if all cultures negative in the next 24 to 48 hours.
-Continue high flow oxygen
-VEST and percussion therapy
-Echo given moderately increased proBNP - suspected increased proBNP in the setting of hypoxemia and RV dysfunction
CHIQUIAT - RESOLVED
- SCr = 1.5 compared to prior baseline of 1.2. --> now improving
- Likely secondary to sepsis as noted above.
- IVFs LR were given overnight and follow for improvement in renal function.
Chronic Atrial Fibrillation by history
- Currently in sinus arrhythmia.
- Continue current medications including beta-rozina.
- Patient is not currently maintained on OAC - unclear why.
Benign Hypertension
- Stable. Continue current meds. Change once daily metoprolol to succinate.
DM-II
- Stable. Hold metformin acutely.
- Follow glucose and cover with SSI as needed.
- Update A1C.
ASCVD
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
- Stable. No new neurologic deficits.
- Continue DAPT, statin, etc.
- Follow for any clinical changes.
- PT / OT evaluations.
Anxiety / Depression
- Stable. Continue outpatient medications.
DVT Prophylaxis: Subcut Heparin
Code Status: DNR and DNI
Patient and patient's sister (Annette Madsen) both confirmed on 08/15/24 that patient is DNR.
The patient has a financial POA, Radha Culver, office [phone], cell [phone].
Patient's nurse on 08/15/24 was able to obtain patient's [place] Orders for Life-Sustaining Treatment (POLST) form which started that patient is a DNR status.
Patient stated on 08/15/24 that he would like not to be intubated/placed on mechanical ventilation and pulmonary also recommended no intubation/mechanical ventilation.
High flow oxygen is a high-risk encounter.
Anticipated Discharge: > 48 hours
Subjective/Interval History
-
Date of Service: August 15, 2024
Patient was seen and examined. He reported no chest pain or shortness of breath.
Objective Data
-
Labs:
Laboratory Results
08/15/24 08/15/24
03:56 06:00
WBC Pending
Hgb Pending
Hct Pending
Plt Count Pending
Sodium 141
Potassium 3.6
Chloride 106
Carbon Dioxide 24
BUN 14
Creatinine 1.0
Glucose 187 H
Calcium 8.3 L
Vital Signs:
Vital Signs
Temp Pulse Resp BP Pulse Ox
98.1 F 79 21 127/70 94
08/15/24 03:59 08/15/24 05:09 08/15/24 05:09 08/15/24 05:09 08/15/24 05:09
I&O
08/14/24 08/15/24 08/16/24
06:59 06:59 06:59
Intake Total 1440 / 1440
Balance 1440 / 1440
[2024-08-15 08:08] LABS: Glucose - Point of Care 177 mg/dl (70-99)
[2024-08-15] MEDS: NOVOLOG FLEXPEN-LOW RESISTANCE 1 UNITS SC (08:15)
[2024-08-15] MEDS: HEPARIN 5000 UNITS SC ×2 (08:15→19:41)
[2024-08-15] MEDS: VISBIOME 1 CAP PO (08:16)
[2024-08-15] MEDS: CLARITIN 10 MG PO (08:16)
[2024-08-15] MEDS: MUCINEX 600 MG PO ×2 (08:16→19:41)
[2024-08-15] MEDS: LIPITOR 20 MG PO (08:16)
[2024-08-15] MEDS: NORVASC 10 MG PO (08:16)
[2024-08-15] MEDS: SENOKOT 8.6 MG PO (08:17)
[2024-08-15] MEDS: TOPROL XL 12.5 MG PO (08:17)
[2024-08-15] MEDS: COLACE 200 MG PO (08:17)
[2024-08-15] MEDS: ROBITUSSIN DM 5 ML PO ×2 (08:17→19:52)
[2024-08-15] MEDS: LOW STRENGTH ASPIRIN 81 MG PO (08:17)
[2024-08-15] MEDS: PLAVIX 75 MG PO (08:18)
[2024-08-15] MEDS: SODIUM CHLORIDE 3% FOR INHALATION 1 VIAL INH ×4 (08:26→19:14)
[2024-08-15] MEDS: DUONEB 3 ML INH ×4 (08:26→19:13)
[2024-08-15 09:09] LABS: % Basophils 0.2 % (0-2); % Eosinophils 0.4 % (0-6); % Immature Granulocytes 0.9 % (0-0.5); % Lymphocytes 9.6 % (20.5-51.1); % Monocytes 6.4 % (1.7-9.3); % Neutrophils 82.5 % (42.2-75.2); Absolute Eosinophils 0.1 10^3/uL (0-0.7); Absolute Immature Granulocytes 0.1 10^3/uL (0-0.05); Absolute Lymphocytes 1.3 10^3/uL (1.2-3.4); Absolute Monocytes 0.8 10^3/uL (0.1-0.6); Absolute Neutrophils 10.7 10^3/uL (1.4-6.5); Hematocrit 32.3 % (39.0-52.0); Hemoglobin 11.1 g/dL (13.0-18.0); Mean Corp Hgb Conc. 34.4 g/dL (33.0-37.0); Mean Corpuscular Hgb 29.9 pg (27.0-31.0); Mean Corpuscular Volume 87.1 fL (80.0-94.0); Nucleated Red Blood Cells % 0 % (-); Platelet Count 274 10^3/uL (130-400); Red Blood Cell Count 3.71 10^6/uL (4.70-6.10); Red Cell Dist. Width 13.7 % (11.5-14.5)
--- NOTE | 2024-08-15 09:20 | CM ---
Addendum entered by Jenna Davis RN 08/15/24 09:36:
Seen by wound care nurse - recommend [email or web address]. Emily at [facility] notified.
Original Note:
Patient from [facility] with Hx CVA with hemiplegia/hemiparesis, Autism. High flow O2. Receiving IV Abx. ST Eval - dysphagia. PT/OT Evals; No skilled PT/OT needed.
Spoke with Page Diaz, [facility];
the patient resides at [facility] in LTC and is on an MA bed hold.
He has dementia and is Oriented x 2-3, has some noncompliance with meds and other care, and makes some inappropriate comments to the nurses.
The patient is assisted with ADLs.
He is w/c bound, requires assist with transfers to the w/c, and is able to self propel.
The patient was not receiving PT/OT.
The ph for report [phone], fax [phone].
The patient has a POA, Radha Culver, office [phone], cell [phone]---> Dr Peñaloza notified.
Admitting notified to add contact.
Plan contact POA & sister prior to return to SNF.
Plan return to [facility] when medically ready.
--- NOTE | 2024-08-15 10:19 | PHA.VAN.FU ---
Vancomycin Assessment / Plan
- Assessment
Renal Function: Stable
WBC's are: Trending Down
In the past 24 hrs, patient has been: Afebrile
Concomitant Antimicrobials: meropenem
- Dosing Plan
Continue: vancomycin 1500 mg q24h
- Monitoring Plan
No level(s) ordered at this time: consider levels in next few days
- Follow Up
Pharmacy will continue to follow.
Vancomycin Follow UP
- -
Patient Age: 73
Patient Sex: Male
Vancomycin Day #: 3
Indication: Pulmonary/Respiratory
Requesting Provider: Dr. Peñaloza
Pertinent Antimicrobial Allergies:
penicillin - unknown
Height / Weight:
Height 5 ft 8 in
Actual Weight 77.3 kg
- Vital Signs / Lab Results
Temp Pulse Resp BP Pulse Ox
98.8 F 98 28 127/70 93
08/15/24 07:05 08/15/24 08:30 08/15/24 08:30 08/15/24 05:09 08/15/24 08:31
Lab Results - Hematology
08/13/24 08/14/24 08/14/24
17:31 05:27 18:30
WBC 15.6 H 14.4 H 14.6 H
08/15/24
08:55
WBC 13.0 H
Lab Results - Chemistry
08/13/24 08/14/24 08/14/24
17:30 05:27 18:30
BUN 27 H 22 H 17
Creatinine 1.5 H 1.1 0.9
Estimated Creat Clear 41 56 69
Albumin 4.0 3.2 L
08/15/24
03:56
BUN 14
Creatinine 1.0
Estimated Creat Clear 62
Albumin
08/13/24 08/13/24
18:43 23:57
Lactic Acid 3.7 H 2.1 H
Lab Results - Urine
08/15/24
03:56
Urine Nitrite (Reflex) Negative
Leukocyte Esterase Rfl Negative
Ur Squamous Epith Cells >30
Microbiology Results
08/15/24 00:38 Gram Stain - Preliminary
Sputum
08/13/24 19:42 MRSA Screen - Final
Nose No Methicillin Resistant Staphylococcus aureus isolated.
08/13/24 19:42 Respiratory Syncytial Virus Ag - Final
Nasal Swab Negative for Respiratory Syncytial Virus.
A false negative result may be obtained with a specimen
collected early in the acute phase. If symptoms persist, a
new specimen should be tested.
08/13/24 18:09 Influenza Types A & B (LAMIN) - Final
Nasal Swab Negative for Influenza A & B, NAAT
Negative results must be combined with clinical observations
and patient history.
Nucleic Acid Amplification test (NAAT)performed on the
[employer] platform.
[2024-08-15] MEDS: TYLENOL 650 MG PO ×2 (10:52→17:49)
--- NOTE | 2024-08-15 11:33 | CON.PUL ---
Consultation
Consultation Request
Date/Time Consultation Requested: 08/15/2024
Date/Time Consultation Performed: 08/15/2024
Requesting Provider: Dr. Mueller
Performing Provider: Dr. Lm John
Reason for Consultation: Pneumonia/acute hypoxemic respiratory failure
Medical History
-
History of Present Illness:
73-year-old man with past medical history significant for prior CVA, hypertension, type 2 diabetes who presented [facility] local [facility] complaining of cough and left-sided chest discomfort. Apparently patient had an
episode of emesis earlier prior admission.
He was transferred to the [facility] emergency room for evaluation on 08/13/2024. Patient states that he was feeling well prior to the episode of emesis.
Denies abdominal pain or abdominal distention.
Past Medical History
Past Medical History: Other (See assessment and plan)
Social History
Tobacco: Non-smoker
Alcohol: None
Living: [facility]
Family History
Family History: Reviewed & Not Pertinent
Allergies / Home Medications
Allergies
Allergy/AdvReac Type Severity Reaction Status Date / Time
Penicillins Allergy per [place] Verified 08/14/24 18:47
transfer
sheet
theophylline Allergy per [facility] Verified 08/14/24 18:47
transfer
sheet
Home Medications
�Medication �Instructions �Recorded �Confirmed �Last Taken �Type
acetaminophen 325 mg tablet 650 mg PO Q6H PRN mild pain, fever 05/29/22 08/13/24 11/17/23 History
(Tylenol) > 100.5
aspirin 81 mg capsule 81 mg PO DAILY Blood clot 05/29/22 08/13/24 11/17/23 History
prevention/tx
atorvastatin 20 mg tablet 20 mg PO DAILY High cholesterol 05/29/22 08/13/24 11/23/23 21:00 History
clopidogrel 75 mg tablet 75 mg PO DAILY Blood clot 05/29/22 08/13/24 11/17/23 History
prevention/tx
docusate sodium 100 mg capsule 200 mg PO DAILY Constipation 05/29/22 08/13/24 11/23/23 21:00 History
(Colace)
lidocaine 4 % topical patch 1 patch topical DAILY Pain 05/29/22 08/13/24 11/23/23 09:00 History
(Lidocaine Pain Relief)
loratadine 10 mg capsule 10 mg PO DAILY Allergies 05/29/22 08/13/24 11/24/23 07:15 History
metoprolol tartrate 25 mg tablet 12.5 mg PO DAILY Blood pressure 05/29/22 08/13/24 11/24/23 07:15 History
psyllium husk (aspartame) 3.4 gram 1 packet PO DAILY 05/29/22 08/13/24 11/23/23 10:00 History
oral powder packet (Metamucil
Fiber Singles)
sennosides 8.6 mg tablet 8.6 mg PO DAILY Constipation 05/29/22 08/13/24 11/24/23 07:15 History
trazodone 50 mg tablet 25 mg PO HS Mental Health/Anxiety 05/29/22 08/13/24 11/23/23 21:00 History
magnesium hydroxide 400 mg/5 mL 30 ml PO HSPRN PRN No BM x 3 days 09/20/22 08/13/24 06/17/23 History
oral suspension (Milk of Magnesia)
bisacodyl 10 mg rectal suppository 10 mg [place] DAILY PRN IF NO BM AFTER 02/22/23 08/13/24 06/17/23 History
(Dulcolax (bisacodyl)) MOM
amlodipine 10 mg tablet (Norvasc) 10 mg PO DAILY 07/14/23 08/13/24 11/24/23 07:15 History
calcium carbonate (Tums) 200 mg PO QID PRN indigestion 07/14/23 08/13/24 10/17/23 History
cholecalciferol (vitamin D3) 25 25 mcg PO DAILY 08/13/24 08/13/24 Unknown History
mcg (1,000 unit) tablet
metformin 500 mg tablet 1,000 mg PO DAILY 08/13/24 08/13/24 Unknown History
metformin 500 mg tablet 500 mg PO QPM 08/13/24 08/13/24 Unknown History
Review of Systems
-
History Source: Patient
All other systems: Negative unless noted
Vitals / Labs / Diagnostic Testing
Vital Signs
Temp Pulse Resp BP Pulse Ox
98.8 F 112 24 127/70 92
08/15/24 07:05 08/15/24 11:10 08/15/24 11:10 08/15/24 05:09 08/15/24 11:10
Lab Data
08/15/24 08:55
08/15/24 03:56
Laboratory Results
08/14/24
19:26
pH 7.48 H
pCO2 28 L
pO2 60 L
HCO3 20.9 L
O2 Delivery Level
Microbiology
08/15/24 00:38 Sputum Gram Stain - Preliminary
08/13/24 19:42 Nose MRSA Screen - Final
No Methicillin Resistant Staphylococcus aureus isolated.
08/13/24 19:42 Nasal Swab Respiratory Syncytial Virus Ag - Final
Negative for Respiratory Syncytial Virus.
A false negative result may be obtained with a specimen
collected early in the acute phase. If symptoms persist, a
new specimen should be tested.
08/13/24 18:09 Nasal Swab Influenza Types A & B (LAMIN) - Final
Negative for Influenza A & B, NAAT
Negative results must be combined with clinical observations
and patient history.
Nucleic Acid Amplification test (NAAT)performed on the
[employer] platform.
Diagnostic Testing:
Physical Exam
-
HEENT: Normocephalic
Cardiovascular: S1/S2
Respiratory: Rales and Accessory Resp Muscle Use (Mild)
GI: Soft and Non Distended
Neurology: Awake, Alert and Other (Chronic left hemiparesis)
Skin: Warm
General: Comfortable
Assessment
-
73-year-old man with past medical history noted. half-way resident. Admitted to the hospital after an episode of vomiting and subsequent hypoxemia and chest discomfort. We were consulted on 08/15/2024 for evaluation.
Acute hypoxemic respiratory failure requiring high flow oxygen. FiO2 80% / 60 L/min.
ABG 08/14/2024: 7.-respiratory alkalosis acute
Pneumonia: Suspect aspiration after emesis episode.
Chest x-ray: Reviewed, showed bibasilar infiltrates.
Negative COVID/negative syncytial virus/negative influenza
MRSA screening negative
CT chest 08/14/2024:Reviewed, showed no evidence for central pulmonary embolism. Bibasilar confluent parenchymal opacity in both lower lobes and left upper lobe. Atelectasis versus pneumonia. Small right pleural effusion, minimal left pleural
effusion. Moderate hiatal hernia. Fatty liver infiltration.
Sepsis syndrome due to above.
Moderately increased proBNP 1590/negative troponin
Leukocytosis
Acute kidney injury
Conditions present prior admission:
Left hemiparesis status post CVA
Hypertension
Type 2 diabetes
Atrial fibrillation of unknown type-not on anticoagulation
Anxiety/depression
History of autism
GERD
History of bladder cancer
Assessment and plan:
Clinical picture suggestive of severe pneumonia with severe hypoxemic respiratory failure requiring high flow oxygen.
Respiratory status is tenuous.
Patient does have a strong cough effort. Coughing up thick yellow phlegm.
Patient stated that he does not want to be on a ventilator and does not want CPR. Advanced directives are being confirmed. Would not proceed with intubation at this point.
CT of the chest reviewed shows significant bibasilar infiltrates with atelectasis-distribution suggestive of aspiration event..
Antibiotics adjusted to vancomycin and meropenem. 08/15/2024
So far microbiology negative.
MRSA screening negative. Low threshold to discontinue vancomycin if all cultures negative in the next 24 to 48 hours.
-
Continue high flow oxygen to maintain pulse ox above 90%
Incentive spirometry encouraged
Given significant bibasilar atelectasis will add vest therapy
Continue with nebulizers-DuoNebs [id number] to aid secretion clearance
Not bronchospastic on exam
VESt and percusion thereapy.
Mucolytics
Avoid sedatives
-
With moderately increased proBNP agree with obtaining echocardiogram.
? History of atrial fibrillation. Not on anticoagulation. Currently in sinus rhythm.
Suspected increased proBNP in the setting of hypoxemia and RV dysfunction.
Troponin is negative
Does have mild bilateral effusions on CT chest.
Hold diuretics for now
-
Patient is high risk for aspiration: Has large hiatal hernia. Prior CVA
Eventual speech evaluation
-
CVA with residual left hemiparesis. Stable
-
No further vomiting
Benign abdominal exam
Denies any diarrhea
-
DVT prophylaxis with heparin
-
High risk situation.
[2024-08-15 13:19] LABS: Glucose - Point of Care 247 mg/dl (70-99)
[2024-08-15] MEDS: NOVOLOG FLEXPEN-LOW RESISTANCE 2 UNITS SC (13:40)
[2024-08-15] MEDS: OCEAN, SALINE MIST 1 SPRAYS NASAL (13:43)
[2024-08-15 17:18] LABS: Glucose - Point of Care 295 mg/dl (70-99)
[2024-08-15] MEDS: NOVOLOG FLEXPEN-LOW RESISTANCE 3 UNITS SC (17:49)
--- NOTE | 2024-08-15 18:23 | PTCARENOTE ---
Remains on high flow 60L/80% 92%- unable to wean. Pulm. toileting - vest therapy- unable to use IS attempted several ways. PRN [place] spray used. Harsh freq prod cough- thick large amts carey lozano brown. ST 100s on tele. Appetite poor, no stool
today. Takes pills one at a time. Condom cath replaced- adequate urine output. Turning q 2. Frequent emotional support provided - call out tries to call speeder machine operator and staff on the phone.
[2024-08-15 18:32] LABS: COVID-19 Antigen Negative (Negative)
[2024-08-15] MEDS: VANCOCIN 530 MG IV (21:12)
[2024-08-15] MEDS: DESYREL 25 MG PO (21:13)
[2024-08-15 21:59] LABS: Glucose - Point of Care 264 mg/dl (70-99)
[2024-08-16] VITALS (20 sets, daily range): BP systolic 101–184; BP diastolic 60–99; BMI 26.1
[2024-08-16] MEDS: TYLENOL 650 MG PO ×4 (00:42→20:10)
--- NOTE | 2024-08-16 01:16 | PTCARENOTE ---
assumed care of patient. pt is AAOx3, forgetful but able to make needs known. bed alarm on. pt able to take pills with water without issues. q2t. incontinent of urine. condom cath on and patent. pt complaining of pain to all over body. PO tylenol
given. full bed bath given and changed. pt remains on HFNC 95%. does drop oxygen when laying flat but recovers. care ongoing.
[2024-08-16] MEDS: STERILE WATER FOR INJECTION IV (01:46)
[2024-08-16] MEDS: MERREM 500 MG IV ×4 (01:48→19:36)
[2024-08-16] MEDS: STERILE WATER FOR INJECTION 10 ML IV ×6 (01:48→19:36)
[2024-08-16] MEDS: ROBITUSSIN DM 5 ML PO ×4 (04:21→23:25)
[2024-08-16 04:59] LABS: % Basophils 0.3 % (0-2); % Eosinophils 1.5 % (0-6); % Immature Granulocytes 0.4 % (0-0.5); % Lymphocytes 13.6 % (20.5-51.1); % Monocytes 8.2 % (1.7-9.3); Absolute Eosinophils 0.2 10^3/uL (0-0.7); Absolute Immature Granulocytes 0.1 10^3/uL (0-0.05); Absolute Lymphocytes 1.6 10^3/uL (1.2-3.4); Absolute Neutrophils 8.9 10^3/uL (1.4-6.5); Hematocrit 29.4 % (39.0-52.0); Hemoglobin 10.3 g/dL (13.0-18.0); Mean Corpuscular Hgb 29.8 pg (27.0-31.0); Mean Platelet Volume 9.2 fL (7.4-10.4); Nucleated Red Blood Cells % 0 % (-); Platelet Count 261 10^3/uL (130-400); Red Blood Cell Count 3.46 10^6/uL (4.70-6.10); Red Cell Dist. Width 13.4 % (11.5-14.5); White Blood Cell Count 11.7 10^3/uL (4.8-10.8)
[2024-08-16 05:25] LABS: Blood Urea Nitrogen 16 mg/dl (9-20); Calcium 8.4 mg/dl (8.4-10.2); Carbon Dioxide 20 mmol/L (22-30); Chloride 111 mmol/L (98-107); Estimated Creatinine Clearance 69 ml/min; Glucose 185 mg/dl (70-99); Magnesium 1.9 mg/dl (1.6-2.3); Potassium 3.7 mmol/L (3.5-5.1); Sodium 139 mmol/L (135-145); eGFR > 60.00
[2024-08-16] MEDS: SODIUM CHLORIDE 3% FOR INHALATION 1 VIAL INH ×4 (07:22→20:16)
[2024-08-16] MEDS: DUONEB 3 ML INH ×4 (07:22→20:16)
[2024-08-16 08:12] LABS: Glucose - Point of Care 175 mg/dl (70-99)
[2024-08-16] MEDS: NOVOLOG FLEXPEN-LOW RESISTANCE 1 UNITS SC (08:51)
[2024-08-16] MEDS: CLARITIN 10 MG PO (09:45)
[2024-08-16] MEDS: COLACE 200 MG PO (09:45)
[2024-08-16] MEDS: HEPARIN 5000 UNITS SC ×2 (09:45→19:36)
[2024-08-16] MEDS: LIPITOR 20 MG PO (09:46)
[2024-08-16] MEDS: LOW STRENGTH ASPIRIN 81 MG PO (09:46)
[2024-08-16] MEDS: MUCINEX 600 MG PO ×2 (09:47→19:36)
[2024-08-16] MEDS: NORVASC 10 MG PO (09:47)
[2024-08-16] MEDS: PLAVIX 75 MG PO (09:48)
[2024-08-16] MEDS: SENOKOT 8.6 MG PO (09:48)
[2024-08-16] MEDS: VISBIOME 1 CAP PO (09:49)
[2024-08-16] MEDS: TOPROL XL 12.5 MG PO (09:51)
--- NOTE | 2024-08-16 10:10 | PHA.VAN.FU ---
Vancomycin Assessment / Plan
- Assessment
Renal Function: Stable
WBC's are: Trending Down
In the past 24 hrs, patient has been: Afebrile
Concomitant Antimicrobials: meropenem
- Dosing Plan
Continue: vancomycin 1500 mg q24h
- Monitoring Plan
Trough Level: 1.31 @0600
- Follow Up
Pharmacy will continue to follow.
Vancomycin Follow UP
- -
Patient Age: 73
Patient Sex: Male
Vancomycin Day #: 4
Indication: Pulmonary/Respiratory
Requesting Provider: Dr. Peñaloza
Pertinent Antimicrobial Allergies:
penicillin - unknown
Height / Weight:
Height 5 ft 8 in
Actual Weight 77.8 kg
- Vital Signs / Lab Results
Temp Pulse Resp BP Pulse Ox
98.0 F 102 36 167/96 94
08/16/24 07:33 08/16/24 09:51 08/16/24 06:00 08/16/24 09:51 08/16/24 06:00
Lab Results - Hematology
08/13/24 08/14/24 08/14/24
17:31 05:27 18:30
WBC 15.6 H 14.4 H 14.6 H
08/15/24 08/16/24
08:55 04:33
WBC 13.0 H 11.7 H
Lab Results - Chemistry
08/13/24 08/14/24 08/14/24
17:30 05:27 18:30
BUN 27 H 22 H 17
Creatinine 1.5 H 1.1 0.9
Estimated Creat Clear 41 56 69
Albumin 4.0 3.2 L
08/15/24 08/16/24
03:56 04:33
BUN 14 16
Creatinine 1.0 0.9
Estimated Creat Clear 62 69
Albumin
08/13/24 08/13/24
18:43 23:57
Lactic Acid 3.7 H 2.1 H
Microbiology Results
08/15/24 00:38 Respiratory Culture - Preliminary
Sputum Usual Respiratory Jasmyn
Gram Stain - Preliminary
08/13/24 19:42 MRSA Screen - Final
Nose No Methicillin Resistant Staphylococcus aureus isolated.
--- NOTE | 2024-08-16 10:51 | W.PN.PUL3 ---
Today's Communication / Plan
-
Continue current antibiotics
Hopefully can narrow down tomorrow-May use Unasyn , if Cultures remain negative
continue secretion clearance interventions
Mucolytics
DuoNebs 4 times a day
3% saline inhale for thick secretion
saline nasal spray
Continue O2 supplementation currently 70% high flow oxygen
Incentive spirometry as able
Will follow
Assessment
-
73-year-old man with past medical history noted. long term resident. Admitted to the hospital after an episode of vomiting and subsequent hypoxemia and chest discomfort. We were consulted on 08/15/2024 for evaluation.
Acute hypoxemic respiratory failure requiring high flow oxygen. FiO2 80% / 60 L/min.
ABG 08/14/2024: 7.-respiratory alkalosis acute
Pneumonia: Suspect aspiration after emesis episode.
Chest x-ray: Reviewed, showed bibasilar infiltrates.
Negative COVID/negative syncytial virus/negative influenza
MRSA screening negative
CT chest 08/14/2024:Reviewed, showed no evidence for central pulmonary embolism. Bibasilar confluent parenchymal opacity in both lower lobes and left upper lobe. Atelectasis versus pneumonia. Small right pleural effusion, minimal left pleural
effusion. Moderate hiatal hernia. Fatty liver infiltration.
Sepsis syndrome due to above.
Moderately increased proBNP 1590/negative troponin
Leukocytosis
Acute kidney injury
Conditions present prior admission:
Left hemiparesis status post CVA
Hypertension
Type 2 diabetes
Atrial fibrillation of unknown type-not on anticoagulation
Anxiety/depression
History of autism
GERD
History of bladder cancer
Assessment and plan:
Clinical picture suggestive of severe pneumonia Likely aspiration with severe hypoxemic respiratory failure requiring high flow oxygen.
Respiratory status is tenuous.
Currently at 70% FiO2. Borderline Oxygenation.
Patient does have a strong cough effort. Coughing up thick yellow phlegm.
-
Patient stated that he does not want to be on a ventilator and does not want CPR. Advanced directives confirmed.
-
CT of the chest reviewed shows significant bibasilar infiltrates with atelectasis-distribution suggestive of aspiration event..
Antibiotics adjusted to vancomycin and meropenem. 08/15/2024
Sputum culture with normal respiratory juan c.
MRSA screening negative. Low threshold to discontinue vancomycin if all cultures negative in the next 24 hours.
-
Continue high flow oxygen to maintain pulse ox above 90%
Incentive spirometry encouraged
Given significant bibasilar atelectasis will add vest therapy
Continue with nebulizers-DuoNebs [id number] to aid secretion clearance
3% saline nebulizer
complaining of nasal congestion: Will add nasal saline spray.
not bronchospastic on exam-no indication for systemic corticosteroid
VESt and percusion thereapy.
Mucolytics
Avoid sedatives
-
With moderately increased proBNP: Echocardiogram 08/15/2024 report reviewed -normal left ventricular size and function. No regional motion wall abnormalities. LVEF 70%. Normal right ventricular size and function. Mild to moderate aortic
regurgitation
? History of atrial fibrillation. Not on anticoagulation. Currently in sinus rhythm.
Suspected increased proBNP in the setting of hypoxemia and RV dysfunction.
Troponin is negative
Does have mild bilateral effusions on CT chest.
Hold diuretics for now
-
Patient is high risk for aspiration: Has large hiatal hernia. Prior CVA
Eventual speech evaluation
-
CVA with residual left hemiparesis. Stable
-
No further vomiting
Benign abdominal exam
Denies any diarrhea
-
DVT prophylaxis with heparin
-
Prognosis guarded
Will continue to follow
Subjective Data
-
Date of Service:
Date of Service: August 16, 2024
Chief Complaint: Pulmonary Follow Up (Pneumonia/hypoxemic respiratory failure)
Subjective:
Patient offers no new complaints
Coughing intermittently some phlegm without hemoptysis
Denies any chest pain
Review of Systems
Cardiopulmonary: Dyspnea, Dyspnea on Exertion, Cough and Sputum Production
Objective Data
Data Reviewed
Vital Signs / I&O / Oxygen:
Vital Signs
Temp Pulse Resp BP Pulse Ox
98.0 F 102 36 167/96 94
08/16/24 07:33 08/16/24 09:51 08/16/24 06:00 08/16/24 09:51 08/16/24 06:00
Intake and Output
08/15/24 08/16/24 08/17/24
06:59 06:59 06:59
Intake Total 1440 / 1440 780 / 780
Output Total 1100 / 1100
Balance 1440 / 1440 -320 / -320
SaO2 94
Nasal Cannula flow liters per 60
minute
Physical Exam
General: Comfortable
HEENT: Normocephalic
Cardiovascular: S1-S2
Respiratory: Crackles and Rhonchi
GI: Non Distended
Neurology: Awake, Alert, Oriented and Other (Left hemiparesis)
Skin: Warm
Labs/Micro/Reports
Lab Data
08/16/24 04:33
08/16/24 04:33
Microbiology
08/15/24 00:38 Sputum Respiratory Culture - Preliminary
Usual Respiratory Juan C
08/15/24 00:38 Sputum Gram Stain - Preliminary
08/13/24 19:42 Nose MRSA Screen - Final
No Methicillin Resistant Staphylococcus aureus isolated.
08/13/24 19:42 Nasal Swab Respiratory Syncytial Virus Ag - Final
Negative for Respiratory Syncytial Virus.
A false negative result may be obtained with a specimen
collected early in the acute phase. If symptoms persist, a
new specimen should be tested.
08/13/24 18:09 Nasal Swab Influenza Types A & B (LAMIN) - Final
Negative for Influenza A & B, NAAT
Negative results must be combined with clinical observations
and patient history.
Nucleic Acid Amplification test (NAAT)performed on the
[employer] platform.
[2024-08-16] MEDS: NOVOLOG FLEXPEN-LOW RESISTANCE 2 UNITS SC ×2 (11:39→17:59)
[2024-08-16 11:55] LABS: Glucose - Point of Care 212 mg/dl (70-99)
--- NOTE | 2024-08-16 16:19 | W.PN.HOSP.TC ---
Today's Communication/Plan
-
Continue high flow oxygen, antibiotics, pulmonary toilet
Assessment / Plan
Assessment / Plan
Physical Exam
General: Not in acute distress
HEENT: Moist mucous membranes. Thick neck.
Respiratory: Crackles and Rhonchi. ON HIGH FLOW OXYGEN.
Cardiac: S1/S2 and Irregular Rhythm
GI: Soft, Non Tender, Non Distended and Normal Bowel Sounds
Musculoskeletal: No Cyanosis. No Edema.
Neuro: AAO x 3 and Other (L weakness - chronic / unchanged.)
Assessment/Plan
Patient is a 73y M with PMH significant for CVA, HTN and DM-II who presented to ED complaining of cough and chest pain s/p emesis episode at [place].
Acute Hypoxic Respiratory Failure Secondary to Severe Pneumonia and Significant Atelectasis
Rapid Response on 08/14/24 due to hypoxia
Significant bibasilar infiltrates with atelectasis-distribution suggestive of aspiration event
Severe Pneumonia
Sepsis Secondary to Pneumonia
Mild Bilateral Effusions on CT Chest
High Risk for Aspiration
-Patient was transferred to IMU
-Continue high flow oxygen to maintain pulse ox above 90%
-Duonebs scheduled with inhaled hypertonic saline
-CT Chest showed atelectasis and severe pneumonia/bilateral infiltrates
-On 08/14/24, broadened antibiotics to Vancomycin and Merrem (patient has unspecified allergy to penicillins) for Pneumonia - low threshold to discontinue vancomycin if all cultures negative in the next 24 hours.
-Continue high flow oxygen
-VEST and percussion therapy
-Incentive spirometer
-Echo showed: normal left ventricular size and function. No regional motion wall abnormalities. LVEF 70%. Normal right ventricular size and function. Mild to moderate aortic regurgitation
-ProBNP possibly elevated due to hypoxemia
CHIQUITA - RESOLVED
- Likely secondary to sepsis as noted above.
- IVFs LR were previously given with improvement in renal function.
Atrial fibrillation of unknown type-not on anticoagulation
- Continue current medications including beta-rozina.
- Patient is not currently maintained on OAC - unclear why.
Benign Hypertension
- Stable. Continue current meds. Change once daily metoprolol to succinate.
DM-II
- Stable. Hold metformin acutely.
- Follow glucose and cover with SSI as needed.
- HbA1C is 8.3%
ASCVD
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
- Stable. No new neurologic deficits.
- Continue DAPT, statin, etc.
- Follow for any clinical changes.
- PT / OT evaluations.
Anxiety / Depression
- Stable. Continue outpatient medications.
History of autism
GERD
History of bladder cancer
DVT Prophylaxis: Subcutaneous Heparin
Code Status: DNR and DNI
Patient and patient's sister (Annette Madsen) both confirmed on 08/15/24 that patient is DNR.
The patient has a financial POA, Radha Culver, office [phone], cell [phone].
Patient's nurse on 08/15/24 was able to obtain patient's [place] Orders for Life-Sustaining Treatment (POLST) form which started that patient is a DNR status.
Patient stated on 08/15/24 that he would like not to be intubated/placed on mechanical ventilation and pulmonary also recommended no intubation/mechanical ventilation.
High flow oxygen is a high-risk encounter.
Anticipated Discharge: > 48 hours
Subjective/Interval History
-
Date of Service: August 16, 2024
Patient was seen and examined. He reported some productive cough, but otherwise denied any other symptoms or complaints.
Objective Data
-
Labs:
Laboratory Results
08/16/24
04:33
WBC 11.7 H
Hgb 10.3 L
Hct 29.4 L
Plt Count 261
Sodium 139
Potassium 3.7
Chloride 111 H
Carbon Dioxide 20 L
BUN 16
Creatinine 0.9
Glucose 185 H
Calcium 8.4
Vital Signs:
Vital Signs
Temp Pulse Resp BP Pulse Ox
98.0 F 106 20 167/96 89
08/16/24 15:46 08/16/24 14:45 08/16/24 14:45 08/16/24 09:51 08/16/24 14:45
I&O
08/15/24 08/16/24 08/17/24
06:59 06:59 06:59
Intake Total 1440 / 1440 780 / 780 240 / 240
Output Total 1100 / 1100 250 / 250
Balance 1440 / 1440 -320 / -320 -10 / -10
--- NOTE | 2024-08-16 16:36 | PTCARENOTE ---
Patient remains on high flow oxygen. Sp02 88%-93% patient has copious amounts of thick lozano secretions. He is able to bring up his secretions and we are orally suctioning him. Lungs coarse with scattered rhonci, tachypnea, short of breath on
exertion. Patient reports pain/discomfort at left flank. Medicating with tylenol as ordered. SR/ST on monitor.
[2024-08-16] MEDS: OCEAN, SALINE MIST 2 SPRAYS NASAL (17:14)
[2024-08-16 17:53] LABS: Glucose - Point of Care 241 mg/dl (70-99)
[2024-08-16] MEDS: LIDOCAINE 4% PATCH 1 PATCH TOPICAL (18:00)
[2024-08-16] MEDS: MORPHINE SULFATE 1 MG IV ×2 (20:10→23:28)
[2024-08-16] MEDS: VANCOCIN 530 MG IV (21:38)
[2024-08-16] MEDS: DESYREL 25 MG PO (21:38)
[2024-08-16 21:46] LABS: Glucose - Point of Care 307 mg/dl (70-99)
--- NOTE | 2024-08-16 22:19 | PTCARENOTE ---
assumed care of patient. pt is AAOx3 but forgetful and anxious. received on HFNC 50L 70% oxygen only 86-88%. pt tachycardic 110s, RR 30s-40s. pt sweating and having trouble breathing. refused vest therapy. continues to state 'I wanna '. positive
environment maintained. respiratory to bedside. increased HFNC. notified covering STRINGS TEACHER of patients breathing status, orders entered for PRN morphine, give with positive effect. pt now on 50L 100% HFNC 94%. non-rebreather at bedside just in case. pt
suctioned a few times, producing thick white/lozano sputum. lungs are course all throughout, cough is very moist. incontinent in attends. pt to be placed on sport bed per orders. called housekeeping who brought up sport bed at start of shift. pt placed
on sport bed for head bucker. q2t. bed alarm on. care ongoing.
[2024-08-17] VITALS (12 sets, daily range): BP systolic 112–168; BP diastolic 68–90; BMI 29.1
[2024-08-17] MEDS: STERILE WATER FOR INJECTION 10 ML IV ×4 (01:44→20:58)
[2024-08-17] MEDS: MERREM 500 MG IV ×4 (01:45→20:58)
[2024-08-17] MEDS: TYLENOL 650 MG PO ×4 (03:19→22:47)
[2024-08-17 04:34] LABS: % Basophils 0.2 % (0-2); % Lymphocytes 12.1 % (20.5-51.1); % Neutrophils 76.7 % (42.2-75.2); Absolute Eosinophils 0.1 10^3/uL (0-0.7); Absolute Immature Granulocytes 0.1 10^3/uL (0-0.05); Absolute Lymphocytes 1.5 10^3/uL (1.2-3.4); Absolute Monocytes 1.1 10^3/uL (0.1-0.6); Absolute Neutrophils 9.5 10^3/uL (1.4-6.5); Hematocrit 28.3 % (39.0-52.0); Hemoglobin 9.7 g/dL (13.0-18.0); Mean Corp Hgb Conc. 34.3 g/dL (33.0-37.0); Mean Corpuscular Hgb 29.7 pg (27.0-31.0); Mean Corpuscular Volume 86.5 fL (80.0-94.0); Mean Platelet Volume 9.2 fL (7.4-10.4); Nucleated Red Blood Cells % 0 % (-); Platelet Count 304 10^3/uL (130-400); Red Blood Cell Count 3.27 10^6/uL (4.70-6.10); Red Cell Dist. Width 13.4 % (11.5-14.5); White Blood Cell Count 12.4 10^3/uL (4.8-10.8)
[2024-08-17 04:56] LABS: Blood Urea Nitrogen 16 mg/dl (9-20); Calcium 8.4 mg/dl (8.4-10.2); Carbon Dioxide 21 mmol/L (22-30); Chloride 106 mmol/L (98-107); Estimated Creatinine Clearance 77 ml/min; Glucose 238 mg/dl (70-99); Potassium 3.4 mmol/L (3.5-5.1); Sodium 135 mmol/L (135-145); eGFR > 60.00
[2024-08-17 05:18] LABS: Vancomycin Trough 18.5 ug/ml (5-20)
[2024-08-17] MEDS: ROBITUSSIN DM 5 ML PO ×2 (06:37→22:47)
[2024-08-17] MEDS: SODIUM CHLORIDE 3% FOR INHALATION 1 VIAL INH ×4 (07:39→19:18)
[2024-08-17] MEDS: DUONEB 3 ML INH ×4 (07:40→19:18)
--- NOTE | 2024-08-17 07:45 | W.PN.HOSP.TC ---
Today's Communication/Plan
-
Continue high flow oxygen
Continue antibiotics
Morphine as needed
Assessment / Plan
Assessment / Plan
Physical Exam
General: Not in acute distress
HEENT: Moist mucous membranes. Thick neck.
Respiratory: Crackles and Rhonchi. ON HIGH FLOW OXYGEN.
Cardiac: S1/S2 and Irregular Rhythm
GI: Soft, Non Tender, Non Distended and Normal Bowel Sounds
Musculoskeletal: No Cyanosis. No Edema.
Neuro: AAO x 3 and Other (L weakness - chronic / unchanged.)
Assessment/Plan
Patient is a 73y M with PMH significant for CVA, HTN and DM-II who presented to ED complaining of cough and chest pain s/p emesis episode at [place].
Acute Hypoxic Respiratory Failure Secondary to Severe Pneumonia and Significant Atelectasis
Rapid Response on 08/14/24 due to hypoxia
Significant bibasilar infiltrates with atelectasis-distribution suggestive of aspiration event
Severe Pneumonia
Sepsis Secondary to Pneumonia
Mild Bilateral Effusions on CT Chest
High Risk for Aspiration
-Continue to monitor patient in IMU
-Continue high flow oxygen to maintain pulse ox above 90%
-Continue Morphine as needed for increased work of breathing
-Duonebs scheduled with inhaled hypertonic saline
-CT Chest showed atelectasis and severe pneumonia/bilateral infiltrates
-On 08/14/24, broadened antibiotics to Vancomycin and Merrem (patient has unspecified allergy to penicillins) for Pneumonia - continue Merrem, stop Vancomycin
-Continue high flow oxygen
-VEST and percussion therapy
-Incentive spirometer
-Echo showed: normal left ventricular size and function. No regional motion wall abnormalities. LVEF 70%. Normal right ventricular size and function. Mild to moderate aortic regurgitation
-ProBNP possibly elevated due to hypoxemia
-Discussed with pulmonary, patient is not a great candidate for noninvasive mechanical ventilation due to his underlying mental status, left hemiplegia as well as significant phlegm production
Hypokalemia
- Replaced, monitor
CHIQUITA - RESOLVED
- Likely secondary to sepsis as noted above.
- IVFs LR were previously given with improvement in renal function.
Atrial fibrillation of unknown type-not on anticoagulation
- Continue current medications including beta-rozina.
- Patient is not currently maintained on OAC - unclear why.
Benign Hypertension
- Stable. Continue current meds. Change once daily metoprolol to succinate.
DM-II
- Stable. Hold metformin acutely.
- Follow glucose and cover with SSI as needed.
- HbA1C is 8.3%
ASCVD
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
- Stable. No new neurologic deficits.
- Continue DAPT, statin, etc.
- Follow for any clinical changes.
- PT / OT evaluations.
Anxiety / Depression
- Stable. Continue outpatient medications.
History of autism
GERD
History of bladder cancer
DVT Prophylaxis: Subcutaneous Heparin
Code Status: DNR and DNI
Patient and patient's sister (Annette Madsen) both confirmed on 08/15/24 that patient is DNR.
The patient has a financial POA, Radha Culver, office [phone], cell [phone].
I updated both Radha Culver and patient's sister Annette over the phone today -- Radha noted that Annette (patient's sister) is medical power of managing attorney, and Annette expressed agreement with our current plan, which is to continue current management to
try to get patient better, and that patient is DNR.
Patient's nurse on 08/15/24 was able to obtain patient's [place] Orders for Life-Sustaining Treatment (POLST) form which started that patient is a DNR status.
Patient stated on 08/15/24 that he would like not to be intubated/placed on mechanical ventilation and pulmonary also recommended no intubation/mechanical ventilation.
High flow oxygen is a high-risk encounter.
Anticipated Discharge: > 48 hours
Subjective/Interval History
-
Date of Service: August 17, 2024
Patient was seen and examined. He was more short of breath overnight, requiring Morphine.
Objective Data
-
Labs:
Laboratory Results
08/17/24
03:59
WBC 12.4 H
Hgb 9.7 L
Hct 28.3 L
Plt Count 304
Sodium 135
Potassium 3.4 L
Chloride 106
Carbon Dioxide 21 L
BUN 16
Creatinine 0.8
Glucose 238 H
Calcium 8.4
Vital Signs:
Vital Signs
Temp Pulse Resp BP Pulse Ox
98.1 F 82 20 130/80 90
08/17/24 03:24 08/17/24 07:43 08/17/24 07:43 08/17/24 06:00 08/17/24 07:43
I&O
08/16/24 08/17/24 08/18/24
06:59 06:59 06:59
Intake Total 780 / 780 960 / 960
Output Total 1100 / 1100 250 / 250
Balance -320 / -320 710 / 710
[2024-08-17] MEDS: MORPHINE SULFATE 1 MG IV ×2 (08:15→12:55)
--- NOTE | 2024-08-17 08:44 | PTCARENOTE ---
Patient complaining of bilateral chest pain. Increased o2 demands. IV morphine sulfate given as ordered for SOB with little help. Patient maxed on high flow oxygen. Dr. worthy notified and orders obtained. will continue to monitor frequently.
--- NOTE | 2024-08-17 08:56 | RESPNOTE ---
patient with desaturation below 80%. now max on HF 55L and 100% plus NRB, SPO2 86-92%. TT to Dr. Peñaloza and Dr. John, orders for stat CXR, EKG, ABG ordered. morphine administered by RN with little relief. update provided to physicians.
[2024-08-17 09:03] LABS: B.E. -1.2 mmol/L; HCO3 21.8 mmol/L (21-28); O2 Saturation % 97.8 % (94-98); PCO2 30 mmHg (35-48); PO2 86 mmHg (83-108); pH 7.47 (7.35-7.45)
[2024-08-17 09:04] LABS: O2 Therapy 100
[2024-08-17] MEDS: HEPARIN 5000 UNITS SC ×2 (09:14→20:56)
[2024-08-17 09:41] LABS: Glucose - Point of Care 222 mg/dl (70-99)
[2024-08-17 10:07] LABS: COVID-19 Antigen Negative (Negative)
[2024-08-17 10:17] LABS: Troponin I < 0.012 ng/ml
[2024-08-17] MEDS: KCL 40 MEQ PO (10:40)
[2024-08-17] MEDS: VISBIOME 1 CAP PO (10:40)
[2024-08-17] MEDS: LIPITOR 20 MG PO (10:40)
[2024-08-17] MEDS: LOW STRENGTH ASPIRIN 81 MG PO (10:40)
[2024-08-17] MEDS: SENOKOT 8.6 MG PO (10:40)
[2024-08-17] MEDS: LIDOCAINE 4% PATCH 1 PATCH TOPICAL (10:41)
[2024-08-17] MEDS: NORVASC 10 MG PO (10:42)
[2024-08-17] MEDS: CLARITIN 10 MG PO (10:42)
[2024-08-17] MEDS: TOPROL XL 12.5 MG PO (10:42)
[2024-08-17] MEDS: PLAVIX 75 MG PO (10:42)
[2024-08-17] MEDS: COLACE 200 MG PO (10:43)
[2024-08-17] MEDS: MUCINEX 600 MG PO ×2 (10:43→20:57)
--- NOTE | 2024-08-17 11:07 | W.PN.PUL3 ---
Today's Communication / Plan
-
Continue secretion clearance intervention
Continue high flow oxygen to maintain pulse ox above 90%
Morphine as needed for increased work of breathing
Mucolytics
Antibiotics
Discontinue vancomycin.
Will follow
Assessment
-
73-year-old man with past medical history noted. assisted resident. Admitted to the hospital after an episode of vomiting and subsequent hypoxemia and chest discomfort. We were consulted on 08/15/2024 for evaluation.
Acute hypoxemic respiratory failure requiring high flow oxygen. FiO2 80% / 60 L/min.
ABG 08/14/2024: 7.-respiratory alkalosis acute
Pneumonia: Suspect aspiration after emesis episode.
Chest x-ray: Reviewed, showed bibasilar infiltrates.
Negative COVID/negative syncytial virus/negative influenza
MRSA screening negative
CT chest 08/14/2024:Reviewed, showed no evidence for central pulmonary embolism. Bibasilar confluent parenchymal opacity in both lower lobes and left upper lobe. Atelectasis versus pneumonia. Small right pleural effusion, minimal left pleural
effusion. Moderate hiatal hernia. Fatty liver infiltration.
Sepsis syndrome due to above.
Moderately increased proBNP 1590/negative troponin
Leukocytosis
Acute kidney injury
Conditions present prior admission:
Left hemiparesis status post CVA
Hypertension
Type 2 diabetes
Atrial fibrillation of unknown type-not on anticoagulation
Anxiety/depression
History of autism
GERD
History of bladder cancer
Assessment and plan:
Clinical picture suggestive of severe pneumonia Likely aspiration with severe hypoxemic respiratory failure requiring high flow oxygen.
Respiratory status is tenuous.
Currently at 100% FiO2. Borderline Oxygenation.
Patient does have a strong cough effort. Coughing up thick yellow phlegm.
Essentially bedbound, likely subsegmental atelectasis also contributing to hypoxemia.
-
Patient stated that he does not want to be on a ventilator and does not want CPR. Advanced directives confirmed.
-
CT of the chest reviewed shows significant bibasilar infiltrates with atelectasis-distribution suggestive of aspiration event..
Antibiotics -meropenem. 08/15/2024
Sputum culture with normal respiratory juan c.
MRSA screening negative. Discontinue vancomycin 08/17/2024.
-
Continue high flow oxygen to maintain pulse ox above 90%
Incentive spirometry encouraged-due to autism and left hemiplegia difficulty performed.
-
Continue aggressive secretion clearance interventions
VEST
Percussion therapy
Continue with nebulizers-DuoNebs [id number] to aid secretion clearance
3% saline nebs
complaining of nasal congestion: nasal saline spray.
Not bronchospastic on exam-no indication for systemic corticosteroid
Mucolytics
Avoid sedatives if able.
-
Given DNR status, increased work of breathing, patient does not want aggressive care as he has been expressing through the course of the hospital stay. Morphine as needed can be given for increased work of breathing.
Discussed with Dr. Mueller, he also updated sister and financial power of tax associate attorney. Both agree with plan. If there is clinical deterioration then comfort measures only.
-
Do not think is a great candidate for noninvasive mechanical ventilation due to his underlying mental status, left hemiplegia as well as significant phlegm production.
-
With moderately increased proBNP: Echocardiogram 08/15/2024 report reviewed -normal left ventricular size and function. No regional motion wall abnormalities. LVEF 70%. Normal right ventricular size and function. Mild to moderate aortic
regurgitation
? History of atrial fibrillation. Not on anticoagulation. Currently in sinus rhythm.
Suspected increased proBNP in the setting of hypoxemia and RV dysfunction.
Given ongoing hypoxemia we will give him a touch of diuresis 20 mg now.
Troponin is negative
Does have mild bilateral effusions on CT chest.
Hold diuretics for now
-
Patient is high risk for aspiration: Has large hiatal hernia. Prior CVA
Eventual speech evaluation
-
CVA with residual left hemiparesis. Stable
-
No further vomiting-continue with aspiration precautions
Antiemetics as needed.
Benign abdominal exam
Denies any diarrhea
-
DVT prophylaxis with heparin
-
Prognosis guarded
Will continue to follow
Subjective Data
-
Date of Service:
Date of Service: August 17, 2024
Chief Complaint: Pulmonary Follow Up (Pneumonia/hypoxemic respiratory failure)
Subjective:
Continues to report cough and phlegm production
Shortness of breath with minimal effort
Overnight with worsening oxygenation and increased work of breathing
Patient continues to state that he does not want to be on a ventilator.
Review of Systems
Cardiopulmonary: Dyspnea, Cough, Sputum Production and Chest Pain
Objective Data
Data Reviewed
Vital Signs / I&O / Oxygen:
Vital Signs
Temp Pulse Resp BP Pulse Ox
98.3 F 95 24 112/74 92
08/17/24 08:43 08/17/24 10:00 08/17/24 10:00 08/17/24 10:00 08/17/24 08:50
Intake and Output
08/16/24 08/17/24 08/18/24
06:59 06:59 06:59
Intake Total 780 / 780 960 / 960
Output Total 1100 / 1100 250 / 250
Balance -320 / -320 710 / 710
SaO2 92
Nasal Cannula flow liters per 55
minute
Physical Exam
General: Comfortable
HEENT: Normocephalic
Cardiovascular: S1-S2
Respiratory: Crackles and Rhonchi
GI: Non Distended
Neurology: Awake, Alert, Oriented and Other (Left hemiplegia)
Skin: Warm
Labs/Micro/Reports
Lab Data
08/17/24 03:59
08/17/24 03:59
Laboratory Results
08/17/24
08:48
pH 7.47 H
pCO2 30 L
pO2 86
HCO3 21.8
O2 Delivery Level 100
Microbiology
08/15/24 03:56 Urine Urine Culture - Final
NO GROWTH
08/15/24 00:38 Sputum Respiratory Culture - Preliminary
Usual Respiratory Juan C
08/15/24 00:38 Sputum Gram Stain - Preliminary
08/13/24 19:42 Nose MRSA Screen - Final
No Methicillin Resistant Staphylococcus aureus isolated.
[2024-08-17] MEDS: FLUSH (NSS) 1 FLUSH IV ×2 (11:14→16:06)
[2024-08-17] MEDS: VANCOCIN 200 IV (11:14)
--- NOTE | 2024-08-17 11:14 | W.PN.UPDATE ---
Update Note
Progress Note Update
Hold off on Lasix, patient hypokalemic
It has been repleted orally
Repeat potassium 3 PM. If potassium improved can consider Lasix dose.
[2024-08-17] MEDS: NOVOLOG FLEXPEN-LOW RESISTANCE 2 UNITS SC (11:15)
--- NOTE | 2024-08-17 11:22 | PTCARENOTE ---
Patient more comfortable. High flow max amount,spo2 currently 94%. Respirations 36-38. Copious amounts of secretions. Patient continues to report right sides flank pain. Medicated with tylenol and lidocaine patch. Patient anxious, asking the
same questions repetitively.
[2024-08-17 12:26] LABS: Glucose - Point of Care 258 mg/dl (70-99)
[2024-08-17] MEDS: NOVOLOG FLEXPEN-MODERATE RESISTANCE 5 UNITS SC ×2 (12:54→18:37)
[2024-08-17] MEDS: NOVOLOG FLEXPEN-MODERATE RESISTANCE SC (13:02)
--- NOTE | 2024-08-17 14:00 | VATNOTE ---
Order received for PICC line placement, after reviewing chart need for central line was unclear. Discussed with ordering MD, stated that PCN seemed to be having difficulty with infusing medications and drawing blood. Per ordering MD, OK for us to
place a midline or hold order altogether if PCN was comfortable with IV access. Discussed with PCN, states that pt has trust and doesn't like needles in general. It is unclear if the process of placing a midline and doing the associated dressing
changes would be more or less tolerable for pt. PCN ok to hold on midline at this time for that reason, will reach back out if needs change.
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
[2024-08-17 16:57] LABS: Blood Urea Nitrogen 19 mg/dl (9-20); Calcium 8.5 mg/dl (8.4-10.2); Carbon Dioxide 22 mmol/L (22-30); Chloride 104 mmol/L (98-107); Estimated Creatinine Clearance 69 ml/min; Glucose 300 mg/dl (70-99); Sodium 139 mmol/L (135-145); eGFR > 60.00
[2024-08-17 17:07] LABS: Troponin I < 0.012 ng/ml
[2024-08-17 18:22] LABS: Glucose - Point of Care 273 mg/dl (70-99)
[2024-08-17] MEDS: DESYREL 25 MG PO (20:57)
[2024-08-17 21:32] LABS: Troponin I < 0.012 ng/ml
--- NOTE | 2024-08-17 22:00 | PTCARENOTE ---
Received pt from khurram RN. Pt aaox3, flat and forgetful. Pt 95% on HFNC (55L 100%). NSR on monitor. Pt coughing up copious amounts of thick lozano sputum, suctioned pt PRN. Pt incontinent of bladder, cc in place draining yellow urine. Pt resting in
bed with call felder in reach.
[2024-08-18] VITALS (15 sets, daily range): BP systolic 99–165; BP diastolic 63–97; BMI 26.9
[2024-08-18] MEDS: STERILE WATER FOR INJECTION 10 ML IV ×4 (02:11→20:28)
[2024-08-18] MEDS: MERREM 500 MG IV ×4 (02:11→20:29)
[2024-08-18] MEDS: TYLENOL 650 MG PO ×2 (05:44→10:33)
[2024-08-18] MEDS: ROBITUSSIN DM 5 ML PO ×3 (05:45→22:22)
[2024-08-18 06:13] LABS: Blood Urea Nitrogen 21 mg/dl (9-20); Calcium 8.3 mg/dl (8.4-10.2); Carbon Dioxide 23 mmol/L (22-30); Chloride 108 mmol/L (98-107); Estimated Creatinine Clearance 77 ml/min; Glucose 177 mg/dl (70-99); Potassium 4.1 mmol/L (3.5-5.1); Sodium 141 mmol/L (135-145); eGFR > 60.00
[2024-08-18 06:36] LABS: % Basophils 0.1 % (0-2); % Eosinophils 2.2 % (0-6); % Immature Granulocytes 1.7 % (0-0.5); % Lymphocytes 13.9 % (20.5-51.1); % Monocytes 9.4 % (1.7-9.3); % Neutrophils 72.7 % (42.2-75.2); Absolute Eosinophils 0.3 10^3/uL (0-0.7); Absolute Immature Granulocytes 0.2 10^3/uL (0-0.05); Absolute Lymphocytes 1.9 10^3/uL (1.2-3.4); Absolute Monocytes 1.3 10^3/uL (0.1-0.6); Hematocrit 30.6 % (39.0-52.0); Hemoglobin 9.6 g/dL (13.0-18.0); Mean Corp Hgb Conc. 31.4 g/dL (33.0-37.0); Mean Corpuscular Hgb 28.6 pg (27.0-31.0); Mean Corpuscular Volume 91.1 fL (80.0-94.0); Nucleated Red Blood Cells % 0 % (-); Platelet Count 324 10^3/uL (130-400); Red Blood Cell Count 3.36 10^6/uL (4.70-6.10); Red Cell Dist. Width 13.9 % (11.5-14.5); White Blood Cell Count 13.8 10^3/uL (4.8-10.8)
[2024-08-18] MEDS: DUONEB 3 ML INH ×4 (07:39→20:07)
[2024-08-18] MEDS: SODIUM CHLORIDE 3% FOR INHALATION 1 VIAL INH ×4 (07:39→20:07)
--- NOTE | 2024-08-18 08:40 | PTCARENOTE ---
Patient received from shift supervisor rn. Patient resting comfortably in bed. AAO, VSS. No events noted overnight. Some complaints of pain in the right back rib area, see MAR. Currently on HighFlow N/C 55L 100%, will work with Respiratory to wean as
tolerated. Continuing ABX. No IVF. No tests scheduled at this time. Call felder in reach.
[2024-08-18] MEDS: VIBRAMYCIN 260 MG IV ×2 (09:52→20:29)
[2024-08-18] MEDS: LIDOCAINE 4% PATCH 1 PATCH TOPICAL (09:52)
[2024-08-18] MEDS: SENOKOT 8.6 MG PO (10:00)
[2024-08-18] MEDS: COLACE 200 MG PO (10:00)
[2024-08-18] MEDS: CLARITIN 10 MG PO (10:00)
[2024-08-18] MEDS: PLAVIX 75 MG PO (10:00)
[2024-08-18] MEDS: LOW STRENGTH ASPIRIN 81 MG PO (10:00)
[2024-08-18] MEDS: MUCINEX 600 MG PO ×2 (10:00→20:28)
[2024-08-18] MEDS: LIPITOR 20 MG PO (10:01)
[2024-08-18] MEDS: NORVASC 10 MG PO (10:01)
[2024-08-18] MEDS: TOPROL XL 12.5 MG PO (10:01)
[2024-08-18] MEDS: VISBIOME 1 CAP PO (10:01)
[2024-08-18] MEDS: HEPARIN 5000 UNITS SC ×2 (10:02→20:28)
[2024-08-18] MEDS: NOVOLOG FLEXPEN-MODERATE RESISTANCE 1 UNITS SC ×2 (10:20→13:54)
[2024-08-18 10:31] LABS: Glucose - Point of Care 193 mg/dl (70-99)
[2024-08-18 14:05] LABS: Glucose - Point of Care 172 mg/dl (70-99)
[2024-08-18] MEDS: TYLENOL 1000 MG PO ×2 (14:48→22:20)
--- NOTE | 2024-08-18 16:19 | W.PN.PUL3 ---
Today's Communication / Plan
-
Continue with supportive care for now
Appears comfortable on high flow, 96%
Aspiration precautions
Airway clearance measures
Therapeutic options otherwise are lacking
Assessment
-
73-year-old man with past medical history noted. [facility] resident. Admitted to the hospital after an episode of vomiting and subsequent hypoxemia and chest discomfort. We were consulted on 08/15/2024 for evaluation.
Acute hypoxemic respiratory failure requiring high flow oxygen. FiO2 80% / 60 L/min.
ABG 08/14/2024: 7.-respiratory alkalosis acute
Pneumonia: Suspect aspiration after emesis episode.
Chest x-ray: Reviewed, showed bibasilar infiltrates.
Negative COVID/negative syncytial virus/negative influenza
MRSA screening negative
CT chest 08/14/2024:Reviewed, showed no evidence for central pulmonary embolism. Bibasilar confluent parenchymal opacity in both lower lobes and left upper lobe. Atelectasis versus pneumonia. Small right pleural effusion, minimal left pleural
effusion. Moderate hiatal hernia. Fatty liver infiltration.
Sepsis syndrome due to above.
Moderately increased proBNP 1590/negative troponin
Leukocytosis
Acute kidney injury
Conditions present prior admission:
Left hemiparesis status post CVA
Hypertension
Type 2 diabetes
Atrial fibrillation of unknown type-not on anticoagulation
Anxiety/depression
History of autism
GERD
History of bladder cancer
Assessment and plan
Clinical picture suggestive of severe pneumonia Likely aspiration with severe hypoxemic respiratory failure requiring high flow oxygen.
Respiratory status is tenuous.
Currently on high flow oxygen 96%
Patient does have a strong cough effort. Coughing up thick yellow phlegm.
Essentially bedbound, likely subsegmental atelectasis also contributing to hypoxemia.
-
Patient stated that he does not want to be on a ventilator and does not want CPR. Advanced directives confirmed.
-
CT of the chest reviewed shows significant bibasilar infiltrates with atelectasis-distribution suggestive of aspiration event..
Antibiotics -meropenem. 08/15/2024
Sputum culture with normal respiratory juan c.
MRSA screening negative. Discontinue vancomycin 08/17/2024.
Head of bed elevated
-
Continue high flow oxygen to maintain pulse ox above 90%
Incentive spirometry encouraged-due to autism and left hemiplegia difficulty performed.
-
Continue aggressive secretion clearance interventions
VEST
Percussion therapy
Continue with nebulizers-DuoNebs [id number]-epi-hwowt to aid secretion clearance
3% saline nebs
complaining of nasal congestion: nasal saline spray.
Not bronchospastic on exam-no indication for systemic corticosteroid
Mucolytics
Avoid sedatives if able.
-
Given DNR status, increased work of breathing, patient does not want aggressive care as he has been expressing through the course of the hospital stay. Morphine as needed can be given for increased work of breathing.
Discussed with Dr. Mueller, he also updated sister and financial power of [place] attorney. Both agree with plan. If there is clinical deterioration then comfort measures only.
-
Do not think is a great candidate for noninvasive mechanical ventilation due to his underlying mental status, left hemiplegia as well as significant phlegm production.
-
Suspected increased proBNP in the setting of hypoxemia and RV dysfunction.
Intermittent Lasix therapy noted
Troponin is negative
Does have mild bilateral effusions on CT chest.
Hold diuretics for now
-
Patient is high risk for aspiration: Has large hiatal hernia. Prior CVA
Eventual speech evaluation
-
CVA with residual left hemiparesis. Stable
-
No further vomiting-continue with aspiration precautions
Antiemetics as needed.
Benign abdominal exam
Denies any diarrhea
-
DVT prophylaxis with heparin
-
Prognosis guarded
Will continue to follow
Subjective Data
-
Date of Service:
Date of Service: August 18, 2024
Chief Complaint: Pulmonary Follow Up (Pneumonia/hypoxemic respiratory failure)
Subjective:
Patient currently on high flow. He has a bucket near him with plugs of mucus. Continues with airway clearance measures but has weak cough. Denies chest pain, nausea
Objective Data
Data Reviewed
Vital Signs / I&O / Oxygen:
Vital Signs
Temp Pulse Resp BP Pulse Ox
98.5 F 93 30 160/88 96
08/18/24 11:13 08/18/24 15:24 08/18/24 15:24 08/18/24 10:01 08/18/24 15:24
Intake and Output
08/17/24 08/18/24 08/19/24
06:59 06:59 06:59
Intake Total 960 / 960 1255 / 1255 500 / 500
Output Total 250 / 250 480 / 480
Balance 710 / 710 775 / 775 500 / 500
SaO2 96
Nasal Cannula flow liters per 50
minute
Physical Exam
General: Comfortable
HEENT: Normocephalic
Cardiovascular: S1-S2
Respiratory: Crackles (Bibasilar) and Rhonchi (Few)
GI: Non Distended
Neurology: Awake, Alert, No Motor Deficits (Overall weak) and Other (Left hemiplegia)
Skin: Warm, Good Color (n), Cyanosis (n) and Bruising (Few)
Labs/Micro/Reports
Lab Data
08/18/24 05:40
08/18/24 05:40
Microbiology
08/15/24 00:38 Sputum Respiratory Culture - Final
Usual Respiratory Juan C
08/15/24 00:38 Sputum Gram Stain - Final
08/15/24 03:56 Urine Urine Culture - Final
NO GROWTH
[2024-08-18] MEDS: NOVOLOG FLEXPEN-MODERATE RESISTANCE 5 UNITS SC (18:31)
[2024-08-18 18:38] LABS: Glucose - Point of Care 253 mg/dl (70-99)
--- NOTE | 2024-08-18 18:53 | W.PN.HOSP.TC ---
Today's Communication/Plan
-
Please see below
Appreciate pulmonary
Assessment / Plan
Assessment / Plan
Physical Exam
General: Not in acute distress
HEENT: Moist mucous membranes. Thick neck.
Respiratory: Crackles and Rhonchi. ON HIGH FLOW OXYGEN.
Cardiac: S1/S2 and Irregular Rhythm
GI: Soft, Non Tender, Non Distended and Normal Bowel Sounds
Musculoskeletal: No Cyanosis. No Edema.
Neuro: AAO x 3 and Other (L weakness - chronic / unchanged.)
Assessment/Plan
Patient is a 73y M with PMH significant for CVA, HTN and DM-II who presented to ED complaining of cough and chest pain s/p emesis episode at [place].
Acute Hypoxic Respiratory Failure Secondary to Severe Pneumonia and Significant Atelectasis
Rapid Response on 08/14/24 due to hypoxia
Significant bibasilar infiltrates with atelectasis-distribution suggestive of aspiration event
Severe Pneumonia
Sepsis Secondary to Pneumonia
Mild Bilateral Effusions on CT Chest
High Risk for Aspiration
-Continue to monitor patient in IMU
-Continue high flow oxygen to maintain pulse ox above 90%
-Continue Morphine as needed for increased work of breathing
-Duonebs scheduled with inhaled hypertonic saline
-CT Chest showed atelectasis and severe pneumonia/bilateral infiltrates
-On 08/14/24, broadened antibiotics to Vancomycin and Merrem (patient has unspecified allergy to penicillins) for Pneumonia - continue Merrem, Doxycycline for atypical organisms. Vancomycin recently stopped.
-Continue high flow oxygen
-VEST and percussion therapy
-Incentive spirometer
-Echo showed: normal left ventricular size and function. No regional motion wall abnormalities. LVEF 70%. Normal right ventricular size and function. Mild to moderate aortic regurgitation
-ProBNP possibly elevated due to hypoxemia
-Discussed with pulmonary, patient is not a great candidate for noninvasive mechanical ventilation due to his underlying mental status, left hemiplegia as well as significant phlegm production
Hypokalemia
- Replaced, monitor
CHIQUITA - RESOLVED
- Likely secondary to sepsis as noted above.
- IVFs LR were previously given with improvement in renal function.
Atrial fibrillation of unknown type-not on anticoagulation
- Continue current medications including beta-rozina.
- Patient is not currently maintained on OAC - unclear why.
Benign Hypertension
- Stable. Continue current meds. Change once daily metoprolol to succinate.
DM-II
- Stable. Hold metformin acutely.
- Follow glucose and cover with SSI as needed.
- HbA1C is 8.3%
ASCVD
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
- Stable. No new neurologic deficits.
- Continue DAPT, statin, etc.
- Follow for any clinical changes.
- PT / OT evaluations.
Anxiety / Depression
- Stable. Continue outpatient medications.
History of autism
GERD
History of bladder cancer
DVT Prophylaxis: Subcutaneous Heparin
Code Status: DNR and DNI
Patient and patient's sister (Annette Madsen) both confirmed on 08/15/24 that patient is DNR.
The patient has a financial POA, Radha Culver, office [phone], cell [phone].
I updated both Radha Culver and patient's sister Annette over the phone, on 08/17/24 -- Radha noted that Annette (patient's sister) is medical power of workers compensation attorney, and Annette expressed agreement with our current plan, which is to continue current
management to try to get patient better, and that patient is DNR.
Patient's nurse on 08/15/24 was able to obtain patient's [place] Orders for Life-Sustaining Treatment (POLST) form which started that patient is a DNR status.
Patient stated on 08/15/24 that he would like not to be intubated/placed on mechanical ventilation and pulmonary also recommended no intubation/mechanical ventilation.
High flow oxygen is a high-risk encounter.
Anticipated Discharge: > 48 hours
Subjective/Interval History
-
Date of Service: August 18, 2024
Patient was seen and examined. He denied any new symptoms or complaints.
Objective Data
-
Vital Signs:
Vital Signs
Temp Pulse Resp BP Pulse Ox
98.5 F 97 32 165/84 94
08/18/24 11:13 08/18/24 18:34 08/18/24 18:34 08/18/24 18:34 08/18/24 18:34
I&O
08/17/24 08/18/24 08/19/24
06:59 06:59 06:59
Intake Total 960 / 960 1255 / 1255 860 / 860
Output Total 250 / 250 480 / 480 600 / 600
Balance 710 / 710 775 / 775 260 / 260
--- NOTE | 2024-08-18 19:30 | PTCARENOTE ---
Assumed care of pt at change of shift. Pt aaox3. Pt 96% on HFNC 50L 100%. Pt has a frequent moist productive cough with thick lozano sputum. This RN suctions pt PRN and oral hygiene completed. Pt resting in bed with call felder in reach.
[2024-08-18 21:43] LABS: Glucose - Point of Care 170 mg/dl (70-99)
[2024-08-18] MEDS: DESYREL 25 MG PO (22:20)
[2024-08-18] MEDS: MORPHINE SULFATE 1 MG IV (22:27)
--- NOTE | 2024-08-18 22:45 | PTCARENOTE ---
Pt's o2 sat dropped to 78% during frequent coughing. Pt placed on nonrebreather. Pt diaphoretic with RR 30-40s, PRN morphine given for tachypnea. axillary temp of 100.4 (JACOBY Tylenol administered). Pt now resting in bed, 97% on HFNC 50L 100%, RR 20s.
Call felder in reach.
[2024-08-18 22:46] LABS: Glucose - Point of Care 153 mg/dl (70-99)
[2024-08-19] VITALS (11 sets, daily range): BP systolic 97–152; BP diastolic 61–78; BMI 26.9
[2024-08-19] MEDS: STERILE WATER FOR INJECTION 10 ML IV ×4 (03:31→19:45)
[2024-08-19] MEDS: MERREM 500 MG IV ×4 (03:31→19:45)
[2024-08-19 04:43] LABS: % Basophils 0.3 % (0-2); % Eosinophils 1.3 % (0-6); % Immature Granulocytes 2.4 % (0-0.5); % Lymphocytes 13.2 % (20.5-51.1); % Monocytes 7.1 % (1.7-9.3); % Neutrophils 75.7 % (42.2-75.2); Absolute Basophils 0.1 10^3/uL (0-0.2); Absolute Eosinophils 0.2 10^3/uL (0-0.7); Absolute Immature Granulocytes 0.4 10^3/uL (0-0.05); Absolute Lymphocytes 2.1 10^3/uL (1.2-3.4); Absolute Monocytes 1.1 10^3/uL (0.1-0.6); Absolute Neutrophils 12.1 10^3/uL (1.4-6.5); Hematocrit 28.8 % (39.0-52.0); Hemoglobin 9.5 g/dL (13.0-18.0); Mean Corpuscular Hgb 29.2 pg (27.0-31.0); Mean Corpuscular Volume 88.6 fL (80.0-94.0); Nucleated Red Blood Cells % 0 % (-); Platelet Count 410 10^3/uL (130-400); Red Blood Cell Count 3.25 10^6/uL (4.70-6.10); Red Cell Dist. Width 13.6 % (11.5-14.5)
[2024-08-19 04:56] LABS: Blood Urea Nitrogen 24 mg/dl (9-20); Calcium 8.4 mg/dl (8.4-10.2); Carbon Dioxide 23 mmol/L (22-30); Chloride 107 mmol/L (98-107); Estimated Creatinine Clearance 77 ml/min; Glucose 177 mg/dl (70-99); Potassium 4.1 mmol/L (3.5-5.1); Sodium 138 mmol/L (135-145); eGFR > 60.00
[2024-08-19] MEDS: STERILE WATER FOR INJECTION IV (06:28)
[2024-08-19] MEDS: TYLENOL 1000 MG PO ×3 (06:28→22:04)
[2024-08-19] MEDS: ROBITUSSIN DM 5 ML PO ×3 (06:28→22:04)
[2024-08-19] MEDS: SODIUM CHLORIDE 3% FOR INHALATION 1 VIAL INH ×4 (07:16→20:10)
[2024-08-19] MEDS: DUONEB 3 ML INH ×4 (07:16→20:10)
[2024-08-19] MEDS: VIBRAMYCIN 260 MG IV ×2 (09:11→19:46)
[2024-08-19] MEDS: LOW STRENGTH ASPIRIN 81 MG PO (09:14)
[2024-08-19] MEDS: VISBIOME 1 CAP PO (09:14)
[2024-08-19] MEDS: MUCINEX 600 MG PO ×2 (09:14→19:45)
[2024-08-19] MEDS: LIPITOR 20 MG PO (09:14)
[2024-08-19] MEDS: CLARITIN 10 MG PO (09:14)
[2024-08-19] MEDS: COLACE 200 MG PO (09:14)
[2024-08-19] MEDS: PLAVIX 75 MG PO (09:14)
[2024-08-19] MEDS: HEPARIN 5000 UNITS SC ×2 (09:14→19:45)
[2024-08-19] MEDS: SENOKOT 8.6 MG PO (09:14)
[2024-08-19] MEDS: NOVOLOG FLEXPEN-MODERATE RESISTANCE 1 UNITS SC ×2 (09:15→12:14)
[2024-08-19] MEDS: LIDOCAINE 4% PATCH 1 PATCH TOPICAL (09:16)
[2024-08-19] MEDS: NORVASC 10 MG PO (09:20)
[2024-08-19] MEDS: TOPROL XL 12.5 MG PO (09:21)
[2024-08-19 09:23] LABS: Glucose - Point of Care 163 mg/dl (70-99)
--- NOTE | 2024-08-19 10:40 | PTCARENOTE ---
Assumed care of patient this morning. Pt is incessantly coughing and spitting, occasionally he does have lozano, thick sputum but then it is normal oral secretions but patient insists on spitting in basin at his bedside. Pt unable to use [place]
himself. Lungs sounds are rhonchorous and coarse. RT weaned patient's HF to 45L/70%. Pt c/o of pain to his lateral chest/ribs. Pt has scheduled Tylenol and Lidocaine patch, see MAR. Assessment, care and VS as charted.
[2024-08-19 12:24] LABS: Glucose - Point of Care 171 mg/dl (70-99)
--- NOTE | 2024-08-19 13:19 | W.PN.HOSP.TC ---
Today's Communication/Plan
-
Continue high flow oxygen
Continue antibiotics
Continue pulmonary toilet
Appreciate pulmonary recommendations
Assessment / Plan
Assessment / Plan
Physical Exam
General: Not in acute distress
HEENT: Moist mucous membranes. Thick neck.
Respiratory: Crackles and Rhonchi. ON HIGH FLOW OXYGEN.
Cardiac: S1/S2 and Irregular Rhythm
GI: Soft, Non Tender, Non Distended and Normal Bowel Sounds
Musculoskeletal: No Cyanosis. No Edema.
Neuro: AAO x 3 and Other (L weakness - chronic / unchanged.)
Assessment/Plan
Patient is a 73y M with PMH significant for CVA, HTN and DM-II who presented to ED complaining of cough and chest pain s/p emesis episode at [place].
Acute Hypoxic Respiratory Failure Secondary to Severe Pneumonia and Significant Atelectasis
Rapid Response on 08/14/24 due to hypoxia
Significant bibasilar infiltrates with atelectasis-distribution suggestive of aspiration event
Severe Pneumonia
Sepsis Secondary to Pneumonia
Mild Bilateral Effusions on CT Chest
High Risk for Aspiration
-Continue to monitor patient in IMU
-Continue high flow oxygen to maintain pulse ox above 90%
-Continue Morphine as needed for increased work of breathing
-Duonebs scheduled with inhaled hypertonic saline
-CT Chest showed atelectasis and severe pneumonia/bilateral infiltrates
-On 08/14/24, broadened antibiotics to Vancomycin and Merrem (patient has unspecified allergy to penicillins) for Pneumonia - continue Merrem, Doxycycline for atypical organisms. Vancomycin recently stopped.
-Continue high flow oxygen
-VEST and percussion therapy
-Incentive spirometer
-Echo showed: normal left ventricular size and function. No regional motion wall abnormalities. LVEF 70%. Normal right ventricular size and function. Mild to moderate aortic regurgitation
-ProBNP possibly elevated due to hypoxemia
-Discussed with pulmonary, patient is not a great candidate for noninvasive mechanical ventilation due to his underlying mental status, left hemiplegia as well as significant phlegm production
Hypokalemia - RESOLVED
- Replaced, monitor
CHIQUITA - RESOLVED
- Likely secondary to sepsis as noted above.
- IVFs LR were previously given with improvement in renal function.
Atrial fibrillation of unknown type-not on anticoagulation
- Continue current medications including beta-rozina.
- Patient is not currently maintained on OAC - unclear why.
Benign Hypertension
- Stable. Continue current meds. Change once daily metoprolol to succinate.
DM-II
- Stable. Hold metformin acutely.
- Follow glucose and cover with SSI as needed.
- HbA1C is 8.3%
ASCVD
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
- Stable. No new neurologic deficits.
- Continue DAPT, statin, etc.
- Follow for any clinical changes.
- PT / OT evaluations.
Anxiety / Depression
- Stable. Continue outpatient medications.
History of autism
GERD
History of bladder cancer
DVT Prophylaxis: Subcutaneous Heparin
Code Status: DNR and DNI
Patient and patient's sister (Annette Madsen) both confirmed on 08/15/24 that patient is DNR.
The patient has a financial POA, Radha Culver, office [phone], cell [phone].
I updated both Radha Culver and patient's sister Annette over the phone, on 08/17/24 -- Radha noted that Annette (patient's sister) is medical power of supervisor livestock yard, and Annette expressed agreement with our current plan, which is to continue current
management to try to get patient better, and that patient is DNR.
Patient's nurse on 08/15/24 was able to obtain patient's [place] Orders for Life-Sustaining Treatment (POLST) form which stated that patient is a DNR status.
Patient stated on 08/15/24 that he would like not to be intubated/placed on mechanical ventilation, and pulmonary also recommended no intubation/mechanical ventilation.
High flow oxygen is a high-risk encounter.
Anticipated Discharge: > 48 hours
Subjective/Interval History
-
Date of Service: August 19, 2024
Patient was seen and examined. He denied any symptoms or complaints.
Objective Data
-
Labs:
Laboratory Results
08/19/24
04:15
WBC 16.0 H
Hgb 9.5 L
Hct 28.8 L
Plt Count 410 H D
Sodium 138
Potassium 4.1
Chloride 107
Carbon Dioxide 23
BUN 24 H
Creatinine 0.8
Glucose 177 H
Calcium 8.4
Vital Signs:
Vital Signs
Temp Pulse Resp BP Pulse Ox
98.5 F 96 35 133/77 95
08/19/24 03:25 08/19/24 12:12 08/19/24 12:12 08/19/24 12:12 08/19/24 12:43
I&O
08/18/24 08/19/24 08/20/24
06:59 06:59 06:59
Intake Total 1255 / 1255 860 / 860 240 / 240
Output Total 480 / 480 880 / 880
Balance 775 / 775 -20 / -20 240 / 240
[2024-08-19] MEDS: MIRALAX 17 GRAMS PO (13:26)
[2024-08-19 14:26] LABS: COVID-19 Antigen Negative (Negative)
--- NOTE | 2024-08-19 15:11 | W.PN.PUL3 ---
Today's Communication / Plan
-
Continue with airway clearance measures
Attempt to wean oxygen
Aspiration precautions
Assessment
-
73-year-old man with past medical history noted. [facility] resident. Admitted to the hospital after an episode of vomiting and subsequent hypoxemia and chest discomfort. We were consulted on 08/15/2024 for evaluation.
Acute hypoxemic respiratory failure requiring high flow oxygen. FiO2 80% / 60 L/min.
ABG 08/14/2024: 7.48-respiratory alkalosis acute
Pneumonia: Suspect aspiration after emesis episode.
Chest x-ray: Reviewed, showed bibasilar infiltrates.
Negative COVID/negative syncytial virus/negative influenza
MRSA screening negative
CT chest 08/14/2024:Reviewed, showed no evidence for central pulmonary embolism. Bibasilar confluent parenchymal opacity in both lower lobes and left upper lobe. Atelectasis versus pneumonia. Small right pleural effusion, minimal left pleural
effusion. Moderate hiatal hernia. Fatty liver infiltration.
Sepsis syndrome due to above.
Moderately increased proBNP 1590/negative troponin
Leukocytosis
Acute kidney injury
Conditions present prior admission:
Left hemiparesis status post CVA
Hypertension
Type 2 diabetes
Atrial fibrillation of unknown type-not on anticoagulation
Anxiety/depression
History of autism
GERD
History of bladder cancer
Assessment and plan
Overall, he appears to be more conversant and stronger today
Cough appears to be more effective
Thick plugs of mucus noted on towel in front of him
Clinical picture suggestive of severe pneumonia Likely aspiration with severe hypoxemic respiratory failure requiring high flow oxygen.
Respiratory status is tenuous.
Currently on high flow oxygen 96%
Patient does have a strong cough effort. Coughing up thick yellow phlegm.
Essentially bedbound, likely subsegmental atelectasis also contributing to hypoxemia
Airway clearance measures will continue
-
Patient stated that he does not want to be on a ventilator and does not want CPR. Advanced directives confirmed.
-
CT of the chest reviewed shows significant bibasilar infiltrates with atelectasis-distribution suggestive of aspiration event..
Antibiotics -meropenem. 08/15/2024
Sputum culture with normal respiratory juan c.
MRSA screening negative. Discontinue vancomycin 08/17/2024.
Head of bed elevated
-
Continue high flow oxygen to maintain pulse ox above 90%
Incentive spirometry encouraged-due to autism and left hemiplegia difficulty performed.
Attempts to wean oxygen
-
Continue aggressive secretion clearance interventions
VEST
Percussion therapy
Continue with nebulizers-DuoNebs [id number]-npz-aotxy to aid secretion clearance
3% saline nebs
complaining of nasal congestion: nasal saline spray.
Not bronchospastic on exam-no indication for systemic corticosteroid
Mucolytics
Avoid sedatives if able.
-
Given DNR status, increased work of breathing, patient does not want aggressive care as he has been expressing through the course of the hospital stay. Morphine as needed can be given for increased work of breathing.
Discussed with Dr. Mueller, he also updated sister and financial power of staff attorney. Both agree with plan. If there is clinical deterioration then comfort measures only.
-
Do not think is a great candidate for noninvasive mechanical ventilation due to his underlying mental status, left hemiplegia as well as significant phlegm production.
-
Suspected increased proBNP in the setting of hypoxemia and RV dysfunction.
Intermittent Lasix therapy noted
Troponin is negative
Does have mild bilateral effusions on CT chest.
Hold diuretics for now
-
Patient is high risk for aspiration: Has large hiatal hernia. Prior CVA
Eventual speech evaluation
-
CVA with residual left hemiparesis. Stable
-
No further vomiting-continue with aspiration precautions
Antiemetics as needed.
Benign abdominal exam
Denies any diarrhea
-
DVT prophylaxis with heparin
-
Prognosis guarded
Will continue to follow
Subjective Data
-
Date of Service:
Date of Service: August 19, 2024
Chief Complaint: Pulmonary Follow Up (Pneumonia/hypoxemic respiratory failure)
Subjective:
Patient appears to be less dyspneic today. Has a stronger cough. Expectorating thick plugs. Remains on high flow
Objective Data
Data Reviewed
Vital Signs / I&O / Oxygen:
Vital Signs
Temp Pulse Resp BP Pulse Ox
98.0 F 96 35 133/77 95
08/19/24 11:29 08/19/24 12:12 08/19/24 12:12 08/19/24 12:12 08/19/24 12:43
Intake and Output
08/18/24 08/19/24 08/20/24
06:59 06:59 06:59
Intake Total 1255 / 1255 860 / 860 240 / 240
Output Total 480 / 480 880 / 880
Balance 775 / 775 -20 / -20 240 / 240
SaO2 95
Nasal Cannula flow liters per 45
minute
Physical Exam
General: Comfortable
HEENT: Normocephalic
Cardiovascular: S1-S2
Respiratory: Crackles (Bibasilar), Rhonchi (Few) and Non-Labored Respirations
GI: Non Distended
Neurology: Awake, Alert, No Motor Deficits (Overall weak) and Other (Left hemiplegia)
Skin: Warm, Good Color (n), Cyanosis (n) and Bruising (Few)
Labs/Micro/Reports
Lab Data
08/19/24 04:15
08/19/24 04:15
Microbiology
08/15/24 00:38 Sputum Respiratory Culture - Final
Usual Respiratory Juan C
08/15/24 00:38 Sputum Gram Stain - Final
08/15/24 03:56 Urine Urine Culture - Final
NO GROWTH
[2024-08-19] MEDS: NOVOLOG FLEXPEN-MODERATE RESISTANCE 3 UNITS SC (18:02)
[2024-08-19 18:03] LABS: Glucose - Point of Care 234 mg/dl (70-99)
[2024-08-19 21:53] LABS: Glucose - Point of Care 196 mg/dl (70-99)
[2024-08-19] MEDS: DESYREL 25 MG PO (22:05)
[2024-08-19] MEDS: MORPHINE SULFATE 1 MG IV (22:15)
--- NOTE | 2024-08-19 23:00 | PTCARENOTE ---
Received pt from day shift RN. Pt aaox3. NSR on monitor Pt 95% on HFNC 45L 70%. Pt has a frequent moist productive cough with thick lozano sputum. This RN suctions pt PRN, oral hygiene completed. PRN morphine given from tachypnea (see MAR). Pt resting
in bed with call felder in reach.
[2024-08-20] VITALS (12 sets, daily range): BP systolic 92–140; BP diastolic 55–75; BMI 26.9
[2024-08-20] MEDS: MERREM 500 MG IV ×4 (01:29→21:23)
[2024-08-20] MEDS: STERILE WATER FOR INJECTION 10 ML IV ×4 (01:29→21:24)
[2024-08-20 04:20] LABS: % Basophils 0.2 % (0-2); % Eosinophils 1.3 % (0-6); % Immature Granulocytes 2.4 % (0-0.5); % Monocytes 6.8 % (1.7-9.3); % Neutrophils 74.3 % (42.2-75.2); Absolute Eosinophils 0.2 10^3/uL (0-0.7); Absolute Immature Granulocytes 0.4 10^3/uL (0-0.05); Absolute Lymphocytes 2.4 10^3/uL (1.2-3.4); Absolute Monocytes 1.1 10^3/uL (0.1-0.6); Absolute Neutrophils 11.7 10^3/uL (1.4-6.5); Hematocrit 25.1 % (39.0-52.0); Hemoglobin 8.5 g/dL (13.0-18.0); Mean Corp Hgb Conc. 33.9 g/dL (33.0-37.0); Mean Corpuscular Hgb 29.6 pg (27.0-31.0); Mean Corpuscular Volume 87.5 fL (80.0-94.0); Mean Platelet Volume 8.8 fL (7.4-10.4); Nucleated Red Blood Cells % 0 % (-); Platelet Count 415 10^3/uL (130-400); Red Blood Cell Count 2.87 10^6/uL (4.70-6.10); Red Cell Dist. Width 13.9 % (11.5-14.5); White Blood Cell Count 15.8 10^3/uL (4.8-10.8)
[2024-08-20 04:44] LABS: Blood Urea Nitrogen 23 mg/dl (9-20); Carbon Dioxide 23 mmol/L (22-30); Chloride 108 mmol/L (98-107); Estimated Creatinine Clearance 88 ml/min; Glucose 169 mg/dl (70-99); Potassium 3.7 mmol/L (3.5-5.1); Sodium 138 mmol/L (135-145); eGFR > 60.00
[2024-08-20] MEDS: SODIUM CHLORIDE 3% FOR INHALATION 1 VIAL INH ×4 (07:39→20:18)
[2024-08-20] MEDS: DUONEB 3 ML INH ×4 (07:39→20:18)
[2024-08-20 08:06] LABS: Glucose - Point of Care 168 mg/dl (70-99)
--- NOTE | 2024-08-20 08:28 | W.PN.HOSP.TC ---
Today's Communication/Plan
-
Continue antibiotics
wean oxygen as able
Assessment / Plan
Assessment / Plan
Gen-AAOx3, NAD
HEENT-NC, AT, anicteric, clear oral mm
Neck-supple
CV-reg, no M, +S1/S2
Lungs-bilateral rhonchi
Abd-soft, NT, ND
Ext-no edema
Musculoskeletal-no cyanosis, clubbing
Skin-warm and dry
Neuro-grossly non-focal
Psych-calm, cooperative
Acute Hypoxic Respiratory Failure -Secondary to Severe Pneumonia and Significant Atelectasis
Rapid Response on 08/14/24 due to hypoxia
Sepsis Secondary to Pneumonia -blood cultures never drawn for unclear reasons. Sputum culture with usual respiratory juan c. RSV negative, COVID-negative, Influenza negative. Currently on empiric meropenem, doxycycline.
Mild Bilateral Effusions on CT Chest
High Risk for Aspiration
-Continue to monitor patient in IMU
-Continue high flow oxygen to maintain pulse ox above 90%
-Continue Morphine as needed for increased work of breathing
-Duonebs scheduled with inhaled hypertonic saline
Hypokalemia - RESOLVED
CHIQUITA - RESOLVED
- Likely secondary to sepsis as noted above.
- IVFs LR were previously given with improvement in renal function.
Atrial fibrillation of unknown type-not on anticoagulation
- Continue current medications including beta-rozina.
- Patient is not currently maintained on OAC - unclear why.
Essential Hypertension
- Stable. Continue current meds. Change once daily metoprolol to succinate.
DM2 with hyperglycemia - Stable. Glucose 169 this morning. Hemoglobin A1c 8.3%. Hold metformin acutely. Moderate resistance aspart scale.
- Follow glucose and cover with SSI as needed.
ASCVD
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
- Stable. No new neurologic deficits.
- Continue DAPT, statin, etc.
- Follow for any clinical changes.
- PT / OT evaluations.
Anxiety / Depression
- Stable. Continue outpatient medications.
History of autism
GERD
History of bladder cancer
DVT Prophylaxis: Subcutaneous Heparin
DNR
Dispo -back to [facility] when medically stable.
Anticipated Discharge: > 48 hours
Subjective/Interval History
-
Date of Service: August 20, 2024
Patient seen and examined. Complaining of chest pain, cough.
Objective Data
-
Labs:
Laboratory Results
08/20/24
03:48
WBC 15.8 H
Hgb 8.5 L
Hct 25.1 L
Plt Count 415 H
Sodium 138
Potassium 3.7
Chloride 108 H
Carbon Dioxide 23
BUN 23 H
Creatinine 0.7
Glucose 169 H
Calcium 8.0 L
Vital Signs:
Vital Signs
Temp Pulse Resp BP Pulse Ox
98.3 F 88 22 131/68 91
08/20/24 04:29 08/20/24 07:40 08/20/24 07:40 08/20/24 04:00 08/20/24 07:45
I&O
08/19/24 08/20/24 08/21/24
06:59 06:59 06:59
Intake Total 860 / 860 1500 / 1500
Output Total 880 / 880 900 / 900
Balance -20 / -20 600 / 600
Review of Systems
-
History Source: Patient
All other systems: Reviewed and negative
[2024-08-20] MEDS: VIBRAMYCIN 260 MG IV (08:47)
[2024-08-20] MEDS: LIDOCAINE 4% PATCH 1 PATCH TOPICAL (09:12)
[2024-08-20] MEDS: MIRALAX 17 GRAMS PO (09:13)
[2024-08-20] MEDS: HEPARIN 5000 UNITS SC ×2 (09:13→21:24)
[2024-08-20] MEDS: ROBITUSSIN DM 5 ML PO ×3 (09:13→23:21)
[2024-08-20] MEDS: LOW STRENGTH ASPIRIN 81 MG PO (09:14)
[2024-08-20] MEDS: MUCINEX 600 MG PO ×2 (09:14→21:23)
[2024-08-20] MEDS: CLARITIN 10 MG PO (09:14)
[2024-08-20] MEDS: VISBIOME 1 CAP PO (09:14)
[2024-08-20] MEDS: SENOKOT 8.6 MG PO (09:14)
[2024-08-20] MEDS: COLACE 200 MG PO (09:14)
[2024-08-20] MEDS: LIPITOR 20 MG PO (09:15)
[2024-08-20] MEDS: PLAVIX 75 MG PO (09:15)
[2024-08-20] MEDS: TYLENOL 1000 MG PO ×3 (09:15→23:21)
[2024-08-20] MEDS: TOPROL XL 12.5 MG PO (09:15)
[2024-08-20] MEDS: NOVOLOG FLEXPEN-MODERATE RESISTANCE 1 UNITS SC ×2 (09:17→17:25)
[2024-08-20] MEDS: NORVASC 10 MG PO (09:17)
--- NOTE | 2024-08-20 09:20 | W.PN.PUL3 ---
Today's Communication / Plan
-
Continue with airway clearance measures
Attempt to wean oxygen
Aspiration precautions
Assessment
-
73-year-old man with past medical history noted. long-term resident. Admitted to the hospital after an episode of vomiting and subsequent hypoxemia and chest discomfort. We were consulted on 08/15/2024 for evaluation.
Acute hypoxemic respiratory failure requiring high flow oxygen. FiO2 80% / 60 L/min.
ABG 08/14/2024: 7.48-respiratory alkalosis acute
Pneumonia: Suspect aspiration after emesis episode.
Chest x-ray: Reviewed, showed bibasilar infiltrates.
Negative COVID/negative syncytial virus/negative influenza
MRSA screening negative
CT chest 08/14/2024:Reviewed, showed no evidence for central pulmonary embolism. Bibasilar confluent parenchymal opacity in both lower lobes and left upper lobe. Atelectasis versus pneumonia. Small right pleural effusion, minimal left pleural
effusion. Moderate hiatal hernia. Fatty liver infiltration.
Sepsis syndrome due to above.
Moderately increased proBNP 1590/negative troponin
Leukocytosis
Acute kidney injury
Conditions present prior admission:
Left hemiparesis status post CVA
Hypertension
Type 2 diabetes
Atrial fibrillation of unknown type-not on anticoagulation
Anxiety/depression
History of autism
GERD
History of bladder cancer
Assessment and plan
Cough appears to be more effective
Clinical picture suggestive of severe pneumonia Likely aspiration with severe hypoxemic respiratory failure requiring high flow oxygen.
Respiratory status is tenuous.
Currently on high flow oxygen 94%
Patient does have a strong cough effort. Coughing up thick yellow phlegm.
Essentially bedbound, likely subsegmental atelectasis also contributing to hypoxemia
Airway clearance measures will continue
-
Patient stated that he does not want to be on a ventilator and does not want CPR. Advanced directives confirmed.
-
CT of the chest reviewed shows significant bibasilar infiltrates with atelectasis-distribution suggestive of aspiration event..
Antibiotics -meropenem. 08/15/2024; doxy started 08/18/2024
Sputum culture with normal respiratory juan c.
MRSA screening negative. Discontinued vancomycin 08/17/2024.
Head of bed elevated
-
Continue high flow oxygen to maintain pulse ox above 90%
Incentive spirometry encouraged-due to autism and left hemiplegia difficulty performed.
Attempts to wean oxygen
-
Continue aggressive secretion clearance interventions
VEST
Percussion therapy
Continue with nebulizers-DuoNebs [id number] to aid secretion clearance
3% saline nebs
complaining of nasal congestion: nasal saline spray.
Not bronchospastic on exam-no indication for systemic corticosteroid at this time
Mucolytics
Avoid sedatives if able.
-
Given DNR status - patient does not want aggressive care as he has been expressing through the course of the hospital stay. Morphine as needed can be given for increased work of breathing.
Discussed with Dr. Mueller, he also updated sister and financial power of length control tester. Both agree with plan. If there is clinical deterioration then comfort measures only.
-
Do not think is a great candidate for noninvasive mechanical ventilation due to his underlying mental status, left hemiplegia as well as significant phlegm production.
-
Suspected increased proBNP in the setting of hypoxemia and RV dysfunction.
Intermittent Lasix therapy noted
Troponin is negative
Does have mild bilateral effusions on CT chest.
Hold diuretics for now
-
Patient is high risk for aspiration: Has large hiatal hernia. Prior CVA
PIE BAKERY LABORER following, cleared for regular solids, thin liquids on 08/14/2024; PIE BAKERY LABORER continuing to follow
-
CVA with residual left hemiparesis. Stable
-
No further vomiting-continue with aspiration precautions
Antiemetics as needed.
Benign abdominal exam
Denies any diarrhea
-
DVT prophylaxis with heparin
-
Prognosis guarded
Will continue to follow
Total time spent today was 52 minutes for this encounter. Time includes reviewing laboratory test/imaging results, reviewing pertinent medical records, obtaining and reviewing medical history, performing an appropriate exam, ordering medications,
tests and procedures. Time also includes documentation of this encounter, coordinating patient care and communicating with other healthcare professionals. Total time does not include separately billed tests performed on this date of service.
Subjective Data
-
Date of Service:
Date of Service: August 20, 2024
Chief Complaint: Pulmonary Follow Up (Pneumonia/hypoxemic respiratory failure)
Subjective:
Patient seen and evaluated this morning. Remains on high flow nasal cannula at 70%, 45 L/min with pulse ox from 94%, heart rate 84 and BP 104/70. He continues to spit up his saliva but no nausea/vomiting, fevers or chills.
Review of Systems
General: Other (Negative unless mentioned above)
Objective Data
Data Reviewed
Vital Signs / I&O / Oxygen:
Vital Signs
Temp Pulse Resp BP Pulse Ox
98.3 F 99 22 140/70 91
08/20/24 04:29 08/20/24 09:17 08/20/24 07:40 08/20/24 09:17 08/20/24 07:45
Intake and Output
08/19/24 08/20/24 08/21/24
06:59 06:59 06:59
Intake Total 860 / 860 1500 / 1500
Output Total 880 / 880 900 / 900
Balance -20 / -20 600 / 600
SaO2 91
Nasal Cannula flow liters per 45
minute
Physical Exam
General: Respiratory Distress (n), Comfortable, Chills (n) and Sweats (n)
HEENT: Normocephalic and Anicteric
Cardiovascular: S1-S2 and Peripheral Edema (+1 lower extremity pitting edema bilaterally)
Respiratory: Wheeze (n), Crackles (Bibasilar), Rhonchi (n) and Non-Labored Respirations
GI: Soft, Non Distended, Non Tender and Normal Bowel Sounds
Neurology: Awake, Alert, Tremors (n) and Other (Left hemiplegia)
Skin: Warm, Dry, Good Color (n), Cyanosis (n) and Bruising (Few)
Labs/Micro/Reports
Lab Data
08/20/24 03:48
08/20/24 03:48
Microbiology
08/15/24 00:38 Sputum Respiratory Culture - Final
Usual Respiratory Juan C
08/15/24 00:38 Sputum Gram Stain - Final
[2024-08-20] MEDS: NOVOLOG FLEXPEN-MODERATE RESISTANCE 3 UNITS SC (11:50)
[2024-08-20 12:00] LABS: Glucose - Point of Care 208 mg/dl (70-99)
--- NOTE | 2024-08-20 16:16 | PTCARENOTE ---
Patient remains on HFNC. Pt has some thick, lozano sputum that he coughs up at times. Appears less than yesterday. Pt insists on spitting into bucket. Pt uses call felder occasionally. Usually just yells out 'hello' until someone is able to answer him.
Assessment, care and VS as charted.
[2024-08-20 17:35] LABS: Glucose - Point of Care 188 mg/dl (70-99)
[2024-08-20] MEDS: VIBRAMYCIN 100 MG PO (21:23)
[2024-08-20] MEDS: DESYREL 25 MG PO (21:23)
[2024-08-20 22:19] LABS: Glucose - Point of Care 179 mg/dl (70-99)
[2024-08-21] VITALS (13 sets, daily range): BP systolic 99–150; BP diastolic 51–132; BMI 26.6
--- NOTE | 2024-08-21 00:03 | PTCARENOTE ---
Pt SaO2 85% on HFNC 45L 70%. Respiratory notified via tiger text. HFNC increased to 50L 80%.
[2024-08-21] MEDS: STERILE WATER FOR INJECTION 10 ML IV ×4 (02:42→20:32)
[2024-08-21] MEDS: MERREM 500 MG IV ×4 (02:42→20:32)
[2024-08-21 03:19] LABS: % Basophils 0.2 % (0-2); % Eosinophils 2.1 % (0-6); % Immature Granulocytes 2.3 % (0-0.5); % Lymphocytes 12.9 % (20.5-51.1); % Monocytes 5.6 % (1.7-9.3); % Neutrophils 76.9 % (42.2-75.2); Absolute Eosinophils 0.4 10^3/uL (0-0.7); Absolute Immature Granulocytes 0.4 10^3/uL (0-0.05); Absolute Lymphocytes 2.3 10^3/uL (1.2-3.4); Absolute Neutrophils 13.5 10^3/uL (1.4-6.5); Hemoglobin 8.7 g/dL (13.0-18.0); Mean Corp Hgb Conc. 33.5 g/dL (33.0-37.0); Mean Corpuscular Hgb 29.2 pg (27.0-31.0); Mean Corpuscular Volume 87.2 fL (80.0-94.0); Mean Platelet Volume 8.6 fL (7.4-10.4); Nucleated Red Blood Cells % 0.1 % (-); Platelet Count 489 10^3/uL (130-400); Red Blood Cell Count 2.98 10^6/uL (4.70-6.10); Red Cell Dist. Width 13.9 % (11.5-14.5); White Blood Cell Count 17.6 10^3/uL (4.8-10.8)
[2024-08-21] MEDS: SODIUM CHLORIDE 3% FOR INHALATION 1 VIAL INH ×4 (07:39→19:54)
[2024-08-21] MEDS: DUONEB 3 ML INH ×4 (07:39→19:54)
--- NOTE | 2024-08-21 08:19 | W.PN.PUL3 ---
Today's Communication / Plan
-
Continue with airway clearance measures
Attempt to wean oxygen
Aspiration precautions
Poor prognosis; patient is contemplating hospice
Assessment
-
73-year-old man with past medical history noted. [facility] resident. Admitted to the hospital after an episode of vomiting and subsequent hypoxemia and chest discomfort. We were consulted on 08/15/2024 for evaluation.
Acute hypoxemic respiratory failure requiring high flow oxygen. FiO2 80% / 60 L/min.
ABG 08/14/2024: 7.48/60-respiratory alkalosis acute
Pneumonia: Suspect aspiration after emesis episode.
Chest x-ray: Reviewed, showed bibasilar infiltrates.
Negative COVID/negative syncytial virus/negative influenza
MRSA screening negative
CT chest 08/14/2024:Reviewed, showed no evidence for central pulmonary embolism. Bibasilar confluent parenchymal opacity in both lower lobes and left upper lobe. Atelectasis versus pneumonia. Small right pleural effusion, minimal left pleural
effusion. Moderate hiatal hernia. Fatty liver infiltration.
Sepsis syndrome due to above.
Moderately increased proBNP 1590/negative troponin
Leukocytosis
Acute kidney injury - improving
Conditions present prior admission:
Left hemiparesis status post CVA
Hypertension
Type 2 diabetes
Atrial fibrillation of unknown type-not on anticoagulation
Anxiety/depression
History of autism
GERD
History of bladder cancer
Assessment and plan
Cough appears to be more effective
Clinical picture suggestive of severe pneumonia - likely aspiration with severe hypoxemic respiratory failure requiring high flow oxygen.
Respiratory status is tenuous.
Currently on high flow oxygen 94%
Patient does have a strong cough effort. Coughing up thick yellow phlegm.
Essentially bedbound, likely subsegmental atelectasis also contributing to hypoxemia
Airway clearance measures will continue
-
Patient stated that he does not want to be on a ventilator and does not want CPR. Advanced directives confirmed.
-
CT of the chest reviewed shows significant bibasilar infiltrates with atelectasis-distribution suggestive of aspiration event..
Antibiotics -meropenem. 08/15/2024; doxy started 08/18/2024
Sputum culture with normal respiratory juan c.
MRSA screening negative. Discontinued vancomycin 08/17/2024.
Head of bed elevated
-
Continue high flow oxygen to maintain pulse ox >90%
Incentive spirometry encouraged-due to autism and left hemiplegia difficulty performed.
Attempts to wean oxygen as tolerated
-
Continue aggressive secretion clearance interventions
VEST
Percussion therapy
Continue with nebulizers-DuoNebs QID
3% saline nebs QID
complaining of nasal congestion: nasal saline spray.
Not bronchospastic on exam-no indication for systemic corticosteroids at this time
Mucolytics
Avoid sedatives if able.
-
Given DNR status - patient does not want aggressive care as he has been expressing through the course of the hospital stay. Morphine as needed can be given for increased work of breathing.
Previously discussed with Dr. Mueller, he also updated sister and financial power of automation tender. Both agree with plan. If there is clinical deterioration then comfort measures only.
-
Do not think is a great candidate for noninvasive mechanical ventilation due to his underlying mental status, left hemiplegia as well as significant phlegm production.
-
Suspected increased proBNP in the setting of hypoxemia and RV dysfunction.
Intermittent Lasix therapy noted
Troponin is negative
Does have mild bilateral effusions on CT chest.
Hold diuretics for now
-
Patient is high risk for aspiration: Has large hiatal hernia. Prior CVA
TELEGRAPH REPEATER TECHNICIAN following, cleared for regular solids, thin liquids on 08/14/2024; TELEGRAPH REPEATER TECHNICIAN continuing to follow
-
CVA with residual left hemiparesis. Stable
-
No further vomiting-continue with aspiration precautions
Antiemetics as needed.
Benign abdominal exam
Denies any diarrhea
-
DVT prophylaxis with heparin
-
Prognosis guarded; hospice was discussed with the patient today by Dr. Glez as well as Dr. Munson. Patient would like to think about this more and also talk to his friend about this.
Will continue to follow
Total time spent today was 55 minutes for this encounter. Time includes reviewing laboratory test/imaging results, reviewing pertinent medical records, obtaining and reviewing medical history, performing an appropriate exam, ordering medications,
tests and procedures. Time also includes documentation of this encounter, coordinating patient care and communicating with other healthcare professionals. Total time does not include separately billed tests performed on this date of service.
Subjective Data
-
Date of Service:
Date of Service: August 21, 2024
Chief Complaint: Pulmonary Follow Up (Pneumonia/hypoxemic respiratory failure)
Subjective:
Patient seen and evaluated today bedside. He says he is miserable. Currently on high flow nasal cannula at 90% FiO2, 50 L/min, with SpO2 91%, heart rate 81 and BP 99/68. Afebrile overnight. He discussed hospice with the hospitalist today. He
currently denies chest pain, MO, fevers or chills.
Review of Systems
General: Other (Negative unless mentioned above)
Objective Data
Data Reviewed
Vital Signs / I&O / Oxygen:
Vital Signs
Temp Pulse Resp BP Pulse Ox
98.1 F 68 18 124/51 93
08/21/24 03:13 08/21/24 07:41 08/21/24 07:41 08/21/24 04:00 08/21/24 07:45
Intake and Output
08/20/24 08/21/24 08/22/24
06:59 06:59 06:59
Intake Total 1500 / 1500 1220 / 1220
Output Total 900 / 900 550 / 550
Balance 600 / 600 670 / 670
SaO2 93
Nasal Cannula flow liters per 60
minute
Physical Exam
General: Respiratory Distress (n), Comfortable, Chills (n) and Sweats (n)
HEENT: Normocephalic and Anicteric
Cardiovascular: S1-S2 and Peripheral Edema (negative)
Respiratory: Wheeze (n), Crackles (Bilateral), Rhonchi (n) and Non-Labored Respirations
GI: Soft, Non Distended, Non Tender and Normal Bowel Sounds
Neurology: Awake, Alert, Tremors (n), Depressed and Other (Left hemiplegia)
Skin: Warm, Dry, Good Color (n), Cyanosis (n) and Bruising (Few)
Labs/Micro/Reports
Lab Data
08/21/24 03:11
08/20/24 03:48
[2024-08-21 08:36] LABS: Glucose - Point of Care 164 mg/dl (70-99)
[2024-08-21] MEDS: TYLENOL 1000 MG PO ×3 (09:26→23:37)
[2024-08-21] MEDS: NOVOLOG FLEXPEN-MODERATE RESISTANCE 1 UNITS SC ×3 (09:36→18:24)
[2024-08-21] MEDS: HEPARIN 5000 UNITS SC ×2 (09:37→20:32)
[2024-08-21] MEDS: VIBRAMYCIN 100 MG PO ×2 (09:39→20:32)
[2024-08-21] MEDS: TOPROL XL PO ×2 (09:39→11:19)
[2024-08-21] MEDS: CLARITIN PO ×2 (09:39→11:18)
[2024-08-21] MEDS: LOW STRENGTH ASPIRIN PO ×2 (09:39→11:19)
[2024-08-21] MEDS: MUCINEX PO ×2 (09:39→11:15)
[2024-08-21] MEDS: NORVASC PO ×2 (09:40→11:19)
[2024-08-21] MEDS: SENOKOT PO ×2 (09:40→11:19)
[2024-08-21] MEDS: COLACE PO ×2 (09:41→11:18)
[2024-08-21] MEDS: LIPITOR PO ×2 (09:41→11:18)
[2024-08-21] MEDS: PLAVIX PO ×2 (09:42→11:19)
[2024-08-21] MEDS: VISBIOME 1 CAP PO (09:42)
[2024-08-21] MEDS: LIDOCAINE 4% PATCH 1 PATCH TOPICAL (09:43)
--- NOTE | 2024-08-21 11:21 | PTCARENOTE ---
RN assisted with breakfast, patient took some medications; abt, and refused most oral medications at that time.
--- NOTE | 2024-08-21 11:24 | PTCARENOTE ---
Addendum entered by Patricia Desir RN 08/21/24 12:19:
Patient stating he wants to take the hi flow off, he is feeling 'done with all of this', declining lunch at this time. TT send to attending with update.
Original Note:
Received patient earlier this am. Patient asleep earlier, awakens to verbal and tactile stimuli. RN assist with breakfast, appetite poor consuminbng 25% of breakfast. Patient refused majority of oral medications this am, did take oral ABT. Patient
in NSR, is on hi-flow 50L at 75%, lungs continue with coarse rhonchi throughout, dyspnea and tachypnea noted at rest. BS active x4, has CC #25 draining clear, yellow urine. Will continue to monitor.
--- NOTE | 2024-08-21 12:53 | W.PN.HOSP.TC ---
Today's Communication/Plan
-
Continue current efforts
Assessment / Plan
Assessment / Plan
Gen-AAOx3, NAD
HEENT-NC, AT, anicteric, clear oral mm
Neck-supple
CV-reg, no M, +S1/S2
Lungs-bilateral rhonchi
Abd-soft, NT, ND
Ext-no edema
Musculoskeletal-no cyanosis, clubbing
Skin-warm and dry
Neuro-grossly non-focal
Psych-calm, cooperative
Acute Hypoxic Respiratory Failure -Secondary to Severe Pneumonia and Significant Atelectasis
Rapid Response on 08/14/24 due to hypoxia
Sepsis Secondary to aspiration pneumonia -blood cultures never drawn for unclear reasons. Sputum culture with usual respiratory juan c. RSV negative, COVID-negative, Influenza negative. Currently on empiric meropenem, doxycycline.
Mild Bilateral Effusions on CT Chest as well as confluent parenchymal opacity within both lower lobes as well as the posterior aspect of the left upper lobe.
High Risk for Aspiration
-Continue to monitor patient in IMU
-Continue high flow oxygen to maintain pulse ox above 90%
-Continue Morphine as needed for increased work of breathing
-Duonebs scheduled with inhaled hypertonic saline
Hypokalemia - RESOLVED
CHIQUITA - RESOLVED
- Likely secondary to sepsis as noted above.
- IVFs LR were previously given with improvement in renal function.
Atrial fibrillation of unknown type-not on anticoagulation
- Continue current medications including beta-rozina.
- Patient is not currently maintained on OAC - unclear why.
Essential Hypertension
- Stable. Continue current meds. Change once daily metoprolol to succinate.
DM2 with hyperglycemia - Stable. Glucose 164 this morning. Hemoglobin A1c 8.3%. Hold metformin acutely. Moderate resistance aspart scale.
- Follow glucose and cover with SSI as needed.
ASCVD
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
- Stable. No new neurologic deficits.
- Continue DAPT, statin, etc.
- Follow for any clinical changes.
- PT / OT evaluations.
Anxiety / Depression
- Stable. Continue outpatient medications.
History of autism
GERD
History of bladder cancer
DVT Prophylaxis: Subcutaneous Heparin
DNR
Dispo -back to long-term when medically stable.
I had a long discussion with patient regarding goals of care. I offered hospice as an option for end-of-life care but he remains undecided about what he wants. I left a voicemail for his power of staff attorney to call me back to discuss further. I
encouraged patient to take his time thinking about his options as he does not seem ready to commit to any particular decision but admits that he is very frustrated and tired of fighting in the hospital.
Anticipated Discharge: > 48 hours
Subjective/Interval History
-
Date of Service: August 21, 2024
Patient seen and examined. Denies shortness of breath but is very frustrated and tired of progressive treatment in the hospital. He is contemplating withdrawing care. He is losing his patience.
Objective Data
-
Labs:
Laboratory Results
08/21/24
03:11
WBC 17.6 H
Hgb 8.7 L
Hct 26.0 L
Plt Count 489 H
Vital Signs:
Vital Signs
Temp Pulse Resp BP Pulse Ox
98.2 F 94 24 99/68 90
08/21/24 12:30 08/21/24 12:00 08/21/24 12:00 08/21/24 12:00 08/21/24 12:00
I&O
08/20/24 08/21/24 08/22/24
06:59 06:59 06:59
Intake Total 1500 / 1500 1220 / 1220
Output Total 900 / 900 550 / 550
Balance 600 / 600 670 / 670
Review of Systems
-
History Source: Patient
All other systems: Reviewed and negative
--- NOTE | 2024-08-21 13:44 | CM ---
Patient from [facility] with Hx CVA with hemiplegia/hemiparesis, Autism. High flow O2.
Per Dr Glez notes, [facility] discussion with patient, and waiting to speak with patient's POA.
Spoke with patient's sister Annette; she states she is the patient's primary contact as she is his health advocate and POA. Radha is his secondary contact and his employment law attorney. Annette says she has spoken with the MD and is aware of the patient's
status. She is away in [place] this week but will be returning home by the weekend.
[facility]: The ph for report [phone], fax [phone].
Plan contact patient's sister AnnetteONOFREMai prior to return to SNF.
Plan return to [facility] when medically ready.
[2024-08-21 14:15] LABS: Glucose - Point of Care 189 mg/dl (70-99)
--- NOTE | 2024-08-21 15:09 | PTCARENOTE ---
Patient c/o chest pain to center and left side. EKG obtained and tt to attending.
[2024-08-21 17:45] LABS: Glucose - Point of Care 171 mg/dl (70-99)
[2024-08-21] MEDS: DESYREL 25 MG PO (20:32)
[2024-08-21] MEDS: MUCINEX 600 MG PO (20:32)
[2024-08-21] MEDS: ROBITUSSIN DM 5 ML PO (20:34)
[2024-08-21 22:29] LABS: Glucose - Point of Care 196 mg/dl (70-99)
[2024-08-22] VITALS (10 sets, daily range): BP systolic 106–149; BP diastolic 50–90; BMI 26.2
--- NOTE | 2024-08-22 00:10 | PTCARENOTE ---
Pt remains on HFNC 60L 100%, SaO2 92%. Lungs coarse with scattered rhonchi, occasional moist productive cough. REYNOSO, JUSTIN, tachypneic, orthopneic, shallow (poor effort). GOC discussed between pt and hospitalist today, pt not ready for comfort/hospice
yet but is considering it. VSS. Call felder within reach. Care ongoing.
[2024-08-22] MEDS: STERILE WATER FOR INJECTION 10 ML IV ×4 (02:36→20:02)
[2024-08-22] MEDS: MERREM 500 MG IV ×4 (02:36→20:02)
--- NOTE | 2024-08-22 08:01 | W.PN.HOSP.TC ---
Addendum entered and electronically signed by Jayme Glez DO 08/22/24 13:18:
Updated patient's sister Annette on the phone regarding goals of care.
Explained that currently he is not working to breathe and looks comfortable. If he clinically deteriorates despite all our efforts then comfort measures would be appropriate.
Today patient told me that he wants to get better, not interested in withdrawing care.
Annette is on her way up from [place] to visit. All questions answered. She agrees with DNR.
Addendum entered and electronically signed by Jayme Glez DO 08/22/24 12:54:
I spoke with Radha Mustafa who is the patient's legal power of cnc wood lathe operator, not medical.
I subsequently left a voicemail for patient's sister Annette to call me back as she is the medical power of cnc wood lathe operator.
Original Note:
Today's Communication/Plan
-
Continue antibiotics
Wean oxygen as able
Assessment / Plan
Assessment / Plan
Gen-AAOx3, NAD
HEENT-NC, AT, anicteric, clear oral mm
Neck-supple
CV-reg, no M, +S1/S2
Lungs-bilateral rhonchi
Abd-soft, NT, ND
Ext-no edema
Musculoskeletal-no cyanosis, clubbing
Skin-warm and dry
Neuro-grossly non-focal
Psych-calm, cooperative
Acute Hypoxic Respiratory Failure -Secondary to Severe Pneumonia and Significant Atelectasis. Still on high flow nasal cannula, 60 L, 100% FiO2. Wean down as able.
Rapid Response on 08/14/24 due to hypoxia
Sepsis Secondary to aspiration pneumonia -blood cultures never drawn for unclear reasons. Sputum culture with usual respiratory juan c. RSV negative, COVID-negative, Influenza negative. Currently on empiric meropenem, doxycycline. Day 8 of
antibiotics.
Mild Bilateral Effusions on CT Chest as well as confluent parenchymal opacity within both lower lobes as well as the posterior aspect of the left upper lobe.
High Risk for Aspiration
-Continue to monitor patient in IMU
-Continue high flow oxygen to maintain pulse ox above 90%
-Continue Morphine as needed for increased work of breathing
-Duonebs scheduled with inhaled hypertonic saline
Hypokalemia - RESOLVED
CHIQUITA - RESOLVED
- Likely secondary to sepsis as noted above.
- IVFs LR were previously given with improvement in renal function.
Atrial fibrillation of unknown type-not on anticoagulation
- Continue current medications including beta-rozina.
- Patient is not currently maintained on OAC - unclear why.
Essential Hypertension
- Stable. Continue current meds. Change once daily metoprolol to succinate.
DM2 with hyperglycemia - Stable. Glucose 164 this morning. Hemoglobin A1c 8.3%. Hold metformin acutely. Moderate resistance aspart scale.
- Follow glucose and cover with SSI as needed.
ASCVD
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
- Stable. No new neurologic deficits.
- Continue DAPT, statin, etc.
- Follow for any clinical changes.
- PT / OT evaluations.
Anxiety / Depression
- Stable. Continue outpatient medications.
History of autism
GERD
History of bladder cancer
DVT Prophylaxis: Subcutaneous Heparin
DNR
[facility] medically [facility].
Today the patient states that he wants to get better. I do not believe he is ready for hospice. I left a voicemail yesterday August 21 for his power of cnc wood lathe operator to call me back.
Anticipated Discharge: > 48 hours
Subjective/Interval History
-
Date of Service: August 22, 2024
Patient seen and examined. Denies shortness of breath.
Objective Data
-
Vital Signs:
Vital Signs
Temp Pulse Resp BP Pulse Ox
97.9 F 64 22 118/54 93
08/22/24 07:48 08/22/24 06:00 08/22/24 06:00 08/22/24 06:00 08/22/24 06:00
I&O
08/21/24 08/22/24 08/23/24
06:59 06:59 06:59
Intake Total 1220 / 1220 350 / 350
Output Total 550 / 550 750 / 750
Balance 670 / 670 -400 / -400
Review of Systems
-
History Source: Patient
All other systems: Reviewed and negative
[2024-08-22] MEDS: DUONEB 3 ML INH ×4 (08:15→20:04)
[2024-08-22] MEDS: SODIUM CHLORIDE 3% FOR INHALATION 1 VIAL INH ×4 (08:15→20:04)
[2024-08-22 08:19] LABS: Glucose - Point of Care 139 mg/dl (70-99)
[2024-08-22] MEDS: LIDOCAINE 4% PATCH 1 PATCH TOPICAL (08:47)
[2024-08-22] MEDS: VIBRAMYCIN 100 MG PO ×2 (08:47→20:02)
[2024-08-22] MEDS: SENOKOT 8.6 MG PO (08:48)
[2024-08-22] MEDS: TOPROL XL PO (08:48)
[2024-08-22] MEDS: VISBIOME 1 CAP PO (08:48)
[2024-08-22] MEDS: COLACE 200 MG PO (08:48)
[2024-08-22] MEDS: PLAVIX PO (08:48)
[2024-08-22] MEDS: LIPITOR PO (08:49)
[2024-08-22] MEDS: MUCINEX 600 MG PO ×2 (08:49→20:02)
[2024-08-22] MEDS: CLARITIN 10 MG PO (08:49)
[2024-08-22] MEDS: HEPARIN 5000 UNITS SC ×2 (08:50→20:02)
[2024-08-22] MEDS: NORVASC PO (08:50)
[2024-08-22] MEDS: LOW STRENGTH ASPIRIN 81 MG PO (08:50)
[2024-08-22] MEDS: TYLENOL 1000 MG PO ×3 (08:50→22:00)
[2024-08-22] MEDS: NOVOLOG FLEXPEN-MODERATE RESISTANCE SC ×2 (08:52→11:30)
--- NOTE | 2024-08-22 10:42 | W.PN.PUL3 ---
Today's Communication / Plan
-
Continue antibiotics
Continue airway clearance, encourage cough
Chest x-ray today
Patient states not interested in hospice
Unfortunately, therapeutic options are limited at this time
Continue current supportive care
Assessment
-
73-year-old man with past medical history noted. [facility]. Admitted to the hospital after an episode of vomiting and subsequent hypoxemia and chest discomfort. We were consulted on 08/15/2024 for evaluation.
Acute hypoxemic respiratory failure requiring high flow oxygen. FiO2 80% / 60 L/min.
ABG 08/14/2024: 7.48/-respiratory alkalosis acute
Pneumonia: Suspect aspiration after emesis episode.
Chest x-ray: Reviewed, showed bibasilar infiltrates.
Negative COVID/negative syncytial virus/negative influenza
MRSA screening negative
CT chest 08/14/2024:Reviewed, showed no evidence for central pulmonary embolism. Bibasilar confluent parenchymal opacity in both lower lobes and left upper lobe. Atelectasis versus pneumonia. Small right pleural effusion, minimal left pleural
effusion. Moderate hiatal hernia. Fatty liver infiltration.
Sepsis syndrome due to above.
Moderately increased proBNP 1590/negative troponin
Leukocytosis
Acute kidney injury - improving
Conditions present prior admission:
Left hemiparesis status post CVA
Hypertension
Type 2 diabetes
Atrial fibrillation of unknown type-not on anticoagulation
Anxiety/depression
History of autism
GERD
History of bladder cancer
Assessment and plan
Cough appears to be more effective
Although he is expectorating thick mucus, he is still hypoxic
Now complaining of right-sided chest discomfort
Requiring nonrebreather on top of high flow with any movement
Seems to respond to morphine intermittently
Per patient, he is not interested in hospice
Moving forward
Clinical picture suggestive of severe pneumonia - likely aspiration with severe hypoxemic respiratory failure requiring high flow oxygen.
Respiratory status is tenuous.
Currently on high flow oxygen and nonrebreather, 94%
Patient does have a strong cough effort. Coughing up thick yellow phlegm.
Essentially bedbound, likely subsegmental atelectasis also contributing to hypoxemia
Airway clearance measures will continue
-
Patient stated that he does not want to be on a ventilator and does not want CPR. Advanced directives confirmed.
-
CT of the chest reviewed shows significant bibasilar infiltrates with atelectasis-distribution suggestive of aspiration event..
Antibiotics -meropenem. 08/15/2024; doxy started 08/18/2024
Sputum culture with normal respiratory juan c.
MRSA screening negative. Off vancomycin
Head of bed elevated
We will repeat a chest x-ray today given increased right chest discomfort
-
Continue high flow oxygen to maintain pulse ox >90%
Incentive spirometry encouraged-due to autism and left hemiplegia difficulty performed.
Attempts to wean oxygen as tolerated
-
Continue aggressive secretion clearance interventions
VEST
Percussion therapy
Continue with nebulizers-DuoNebs QID
3% saline nebs QID
complaining of nasal congestion: nasal saline spray.
Not bronchospastic on exam-no indication for systemic corticosteroids at this time
Mucolytics
Avoid sedatives if able.
-
Given DNR status - patient does not want aggressive care as he has been expressing through the course of the hospital stay. Morphine as needed can be given for increased work of breathing.
Previously discussed with Dr. Mueller, he also updated sister and financial power of erisa attorney. Both agree with plan. If there is clinical deterioration then comfort measures only.
-
Do not think is a great candidate for noninvasive mechanical ventilation due to his underlying mental status, left hemiplegia as well as significant phlegm production.
I reviewed with the patient. Unfortunately therapeutic options are lacking at this time except for our current supportive measures
-
Patient is high risk for aspiration: Has large hiatal hernia. Prior CVA
RESEARCH INVESTIGATOR following, cleared for regular solids, thin liquids on 08/14/2024; RESEARCH INVESTIGATOR continuing to follow
-
CVA with residual left hemiparesis. Stable
-
No further vomiting-continue with aspiration precautions
Antiemetics as needed.
Benign abdominal exam
Denies any diarrhea
-
DVT prophylaxis with heparin
-
Prognosis guarded; hospice was discussed with the patient today by Dr. Glez as well as Dr. Munson. Patient states to me that he is not interested in hospice. This will be an ongoing discussion
Will continue to follow
Poor long-term prognosis
Subjective Data
-
Date of Service:
Date of Service: August 22, 2024
Chief Complaint: Pulmonary Follow Up (Pneumonia/hypoxemic respiratory failure)
Subjective:
Patient continues to feel poor. Complaining of right-sided chest discomfort. Desaturates to 85% with movement, now 94% after some morphine for right chest discomfort and nonrebreather on top of high flow. Patient conversing, still expectorating
thick plugs
Objective Data
Data Reviewed
Vital Signs / I&O / Oxygen:
Vital Signs
Temp Pulse Resp BP Pulse Ox
97.9 F 71 28 118/54 90
08/22/24 07:48 08/22/24 08:17 08/22/24 08:17 08/22/24 06:00 08/22/24 08:17
Intake and Output
08/21/24 08/22/24 08/23/24
06:59 06:59 06:59
Intake Total 1220 / 1220 350 / 350
Output Total 550 / 550 750 / 750
Balance 670 / 670 -400 / -400
SaO2 90
Nasal Cannula flow liters per 50
minute
Physical Exam
General: Respiratory Distress (mild)
HEENT: Normocephalic and Anicteric
Cardiovascular: S1-S2, Regular Rhythm, Murmur (n) and Peripheral Edema (negative)
Respiratory: Wheeze (n), Crackles (few), Rhonchi (n), Non-Labored Respirations, Stridor (n) and Other (Poor inspiratory effort, decreased)
GI: Soft, Non Distended, Non Tender and Normal Bowel Sounds
Neurology: Awake, Alert, No Motor Deficits (Conversant, moving right side) and Other (Left hemiplegia)
Skin: Warm, Dry, Cyanosis (n) and Bruising (Few)
Labs/Micro/Reports
Lab Data
08/21/24 03:11
08/20/24 03:48
[2024-08-22] MEDS: MORPHINE SULFATE 1 MG IV ×2 (11:26→15:28)
[2024-08-22 11:41] LABS: Glucose - Point of Care 148 mg/dl (70-99)
--- NOTE | 2024-08-22 14:44 | PTOTSP ---
SPEECH THERAPY SWALLOW FOLLOW UP NOTE:
Patient continues to exhibit clinical signs of oropharyngeal dysphagia, likely chronic related to prior CVA, GERD, and acutely exacerbated by tenuous respiratory status 2/2 sepsis/pneumonia. Patient remains at HIGH RISK for aspiration and related
complications at this time given tenuous respiratory/pulmonary status. CXR concerning for worsening pulmonary status/possible pneumonia. WBC increasing. Given high risk for decompensation with eating/drinking, would recommend temporary NPO at this
time if consistent with goals of care. Unable to exclude aspiration at bedside; Patient would benefit from VSE to assess swallowing, though due to oxygen requirements/respiratory status patient is not appropriate for instrumental assessment at this
time. Per chart review, patient declining hospice at this time. Recommend medications crushed in puree as able and ARHP of small single sips of water (sparingly) with RN supervision. Oral care 3x/day. ST to follow and re-assess in 24 hours,
determine readiness for VSE as appropriate, and continue plan of care.
RECOMMEND:
1) Temporary NPO 2/2 tenuous respiratory status
2) ARHP small single sips of water (sparingly) with RN supervision after oral care
3) Oral care 3x/day
4) ST to follow, re-assess in 24 hours, determine readiness for VSE pending respiratory status
[2024-08-22] MEDS: ROBITUSSIN DM 5 ML PO (15:27)
--- NOTE | 2024-08-22 17:02 | CM ---
Patient from [facility] with Hx CVA with hemiplegia/hemiparesis, Autism. High flow O2. Receiving IVF, IV Abx, IV MS prn. ST- temporary NPO 2/2 tenuous respiratory status.
SNF referral placed for patient's eventual return.
[facility]: The for report [phone], fax [phone].
Plan contact patient's sister JUAN Bryant prior to return to SNF.
Plan return to [facility] when medically ready.
[2024-08-22] MEDS: LR 1000 IV (17:14)
[2024-08-22] MEDS: NOVOLOG FLEXPEN-MODERATE RESISTANCE 1 UNITS SC (17:25)
[2024-08-22 17:36] LABS: Glucose - Point of Care 172 mg/dl (70-99)
--- NOTE | 2024-08-22 18:42 | PTCARENOTE ---
see nursing flowsheet/assessment. pt on max high flow also requiring nonrebreather frequently throughout the day to maintain sats above 90. pt has harsh cough and occasionally coughs up thick lozano mucus. seen by speech therapist and made npo d/t
aspiration risk. iv fluids initiated. medicated x 2 with morphine as ordered for tachypnea, sob with some mild improvement of symptoms.
[2024-08-22] MEDS: DESYREL 25 MG PO (20:02)
[2024-08-23] VITALS (14 sets, daily range): BP systolic 87–133; BP diastolic 56–106; BMI 26.3
[2024-08-23] MEDS: STERILE WATER FOR INJECTION 10 ML IV ×2 (01:22→08:47)
[2024-08-23] MEDS: MERREM 500 MG IV ×2 (01:22→08:46)
[2024-08-23] MEDS: LR 1000 IV ×2 (05:15→16:51)
[2024-08-23 05:45] LABS: % Basophils 0.2 % (0-2); % Eosinophils 2.9 % (0-6); % Immature Granulocytes 1.4 % (0-0.5); % Lymphocytes 13.5 % (20.5-51.1); Absolute Eosinophils 0.4 10^3/uL (0-0.7); Absolute Immature Granulocytes 0.2 10^3/uL (0-0.05); Absolute Monocytes 0.9 10^3/uL (0.1-0.6); Absolute Neutrophils 11.1 10^3/uL (1.4-6.5); Hematocrit 24.5 % (39.0-52.0); Hemoglobin 8.2 g/dL (13.0-18.0); Mean Corp Hgb Conc. 33.5 g/dL (33.0-37.0); Mean Corpuscular Hgb 29.6 pg (27.0-31.0); Mean Corpuscular Volume 88.4 fL (80.0-94.0); Mean Platelet Volume 8.8 fL (7.4-10.4); Nucleated Red Blood Cells % 0 % (-); Platelet Count 585 10^3/uL (130-400); Red Blood Cell Count 2.77 10^6/uL (4.70-6.10); Red Cell Dist. Width 14.4 % (11.5-14.5); White Blood Cell Count 14.6 10^3/uL (4.8-10.8)
[2024-08-23 06:14] LABS: Blood Urea Nitrogen 26 mg/dl (9-20); Calcium 8.2 mg/dl (8.4-10.2); Carbon Dioxide 20 mmol/L (22-30); Chloride 108 mmol/L (98-107); Estimated Creatinine Clearance 77 ml/min; Glucose 137 mg/dl (70-99); Potassium 4.2 mmol/L (3.5-5.1); Sodium 138 mmol/L (135-145); eGFR > 60.00
--- NOTE | 2024-08-23 06:39 | PTCARENOTE ---
Cared for pt overnight. No changes. Continues 60L 100% HFNC & NRB, will desat to low 80%'s when off NRB. Pt asking nurse about when he is going to get better, pt stated he did not want to . NSR. Q2T. NO other changes, will monitor.
[2024-08-23 07:04] LABS: Glucose - Point of Care 143 mg/dl (70-99)
[2024-08-23] MEDS: SODIUM CHLORIDE 3% FOR INHALATION 1 VIAL INH ×4 (07:18→19:14)
[2024-08-23] MEDS: DUONEB 3 ML INH ×4 (07:18→19:14)
--- NOTE | 2024-08-23 08:14 | W.PN.HOSP.TC ---
Addendum entered and electronically signed by Jayme Glez DO 08/23/24 16:37:
I met with patient's sister Annette and patient's [id number] at the bedside. We discussed Zack's poor prognosis in terms of ongoing respiratory failure, dysphagia, and lack of clinical improvement.
Unfortunately he remains at high risk of aspiration and is n.p.o. per speech therapy recommendation.
Zack seems to understand his poor prognosis as he does get tearful during discussions. He does not want to give up yet and wants to continue to fight.
We discussed that there is no safe way of feeding him by mouth and artificial means of nutrition such as a Dobbhoff tube will likely worsen his breathing status and cause aspiration. Would not recommend PEG tube either for the same reasons.
If he continues to deteriorate, I recommend comfort measures. All questions were answered. I encouraged family to have ongoing discussions with the patient regarding his goals and wishes.
At the request of Zack, I also spoke with patient's friend Xander on the phone, all questions were answered.
Will revisit and discuss goals again on a daily basis.
Updated nursing.
Original Note:
Today's Communication/Plan
-
Continue current efforts
Await family arrival today
N.p.o.
IV fluids
Assessment / Plan
Assessment / Plan
Gen-AAOx3, NAD
HEENT-NC, AT, anicteric, clear oral mm
Neck-supple
CV-reg, no M, +S1/S2
Lungs-bilateral rhonchi
Abd-soft, NT, ND
Ext-no edema
Musculoskeletal-no cyanosis, clubbing
Skin-warm and dry
Neuro-grossly non-focal
Psych-calm, cooperative
Acute Hypoxic Respiratory Failure -Secondary to Severe Pneumonia and Significant Atelectasis. Oxygenation worsening unfortunately. Now on high flow nasal cannula, 50 L, 100% FiO2, nonrebreather mask. August 22 chest x-ray shows worsening
bilateral opacifications, likely worsening aspiration.
Rapid Response on 08/14/24 due to hypoxia.
Sepsis Secondary to aspiration pneumonia -blood cultures never drawn for unclear reasons. Sputum culture with usual respiratory juan c. RSV negative, COVID-negative, Influenza negative. Currently on empiric meropenem, doxycycline. Day 9 of
antibiotics.
Mild Bilateral Effusions on CT Chest as well as confluent parenchymal opacity within both lower lobes as well as the posterior aspect of the left upper lobe.
Dysphagia -causing severe aspiration pneumonia. Made n.p.o. on August 22 as per speech therapy recommendation. Suspect ongoing aspiration in the hospital. At this point in time his prognosis remains very poor for recovery. Feeding tube was
discussed with patient and patient's sister, his sister who is the POA does not want to pursue a PEG tube. I agree with this as I think it would cause worsening aspiration and worsening hypoxia.
Hypokalemia - RESOLVED
CHIQUITA - RESOLVED
- Likely secondary to sepsis as noted above.
- IVFs LR were previously given with improvement in renal function.
Atrial fibrillation of unknown type-not on anticoagulation
- Continue current medications including beta-rozina.
- Patient is not currently maintained on OAC - unclear why.
Essential Hypertension
- Stable. Continue current meds. Change once daily metoprolol to succinate.
DM2 with hyperglycemia - Stable. Glucose 137 this morning. Hemoglobin A1c 8.3%. Hold metformin acutely. Moderate resistance aspart scale.
- Follow glucose and cover with SSI as needed.
Acute on chronic anemia -hemoglobin slowly trending down, 8.2 this morning. 12.1 on admission. No evidence of bleeding clinically. Component of hemodilution from IV fluid administration, anemia due to critical illness, etc.
ASCVD
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
- Stable. No new neurologic deficits.
- Continue DAPT, statin, etc.
- Follow for any clinical changes.
- PT / OT evaluations.
Anxiety / Depression
- Stable. Continue outpatient medications.
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
GERD
History of bladder cancer
DVT Prophylaxis: Subcutaneous Heparin
DNR
Dispo -unfortunately I do not foresee Zack surviving this hospitalization given his worsening respiratory status and critical illness. Discussed goals of care with patient and power of civil attorney who is his sister, Annette. Sister is on her way
into the hospital today to discuss plan of care. I gave her an update on the phone this morning.
End-of-life care discussion constitutes high risk encounter.
Anticipated Discharge: > 48 hours
Subjective/Interval History
-
Date of Service: August 23, 2024
Patient seen and examined. Denies shortness of breath. No complaints. Was sleeping when I walked in.
Objective Data
-
Labs:
Laboratory Results
08/23/24
05:21
WBC 14.6 H
Hgb 8.2 L
Hct 24.5 L
Plt Count 585 H
Sodium 138
Potassium 4.2
Chloride 108 H
Carbon Dioxide 20 L
BUN 26 H
Creatinine 0.8
Glucose 137 H
Calcium 8.2 L
Vital Signs:
Vital Signs
Temp Pulse Resp BP Pulse Ox
98.3 F 82 22 114/61 95
08/23/24 07:35 08/23/24 07:20 08/23/24 07:20 08/23/24 06:00 08/23/24 07:20
I&O
08/22/24 08/23/24 08/24/24
06:59 06:59 06:59
Intake Total 350 / 350
Output Total 750 / 750 575 / 575
Balance -400 / -400 -575 / -575
Review of Systems
-
History Source: Patient
All other systems: Reviewed and negative
[2024-08-23] MEDS: NOVOLOG FLEXPEN-MODERATE RESISTANCE SC ×2 (08:41→12:50)
[2024-08-23] MEDS: SENOKOT PO ×2 (08:44→09:11)
[2024-08-23] MEDS: TOPROL XL 12.5 MG PO (08:44)
[2024-08-23] MEDS: PLAVIX 75 MG PO (08:44)
[2024-08-23] MEDS: VISBIOME PO ×2 (08:44→09:10)
[2024-08-23] MEDS: TYLENOL 1000 MG PO ×3 (08:44→22:24)
[2024-08-23] MEDS: MUCINEX PO ×3 (08:44→19:50)
[2024-08-23] MEDS: COLACE PO ×2 (08:44→09:09)
[2024-08-23] MEDS: NORVASC 10 MG PO (08:44)
[2024-08-23] MEDS: VIBRAMYCIN PO ×2 (08:44→09:10)
[2024-08-23] MEDS: LOW STRENGTH ASPIRIN PO ×2 (08:44→09:11)
[2024-08-23] MEDS: LIDOCAINE 4% PATCH 1 PATCH TOPICAL (08:45)
[2024-08-23] MEDS: LIPITOR 20 MG PO (08:45)
[2024-08-23] MEDS: HEPARIN 5000 UNITS SC ×2 (08:45→19:51)
[2024-08-23] MEDS: CLARITIN 10 MG PO (08:45)
--- NOTE | 2024-08-23 09:14 | W.PN.PUL3 ---
Today's Communication / Plan
-
Maintain n.p.o. for now
Unfortunately, clinically and radiographically going in the wrong direction
I reviewed this with the patient. He became tearful
I also called his friend Xander at his request
I also contacted sister and updated her. She does not want a feeding tube. She will be coming in later today to discuss with primary team goals of care
Assessment
-
73-year-old man with past medical history noted. [facility] resident. Admitted to the hospital after an episode of vomiting and subsequent hypoxemia and chest discomfort. We were consulted on 08/15/2024 for evaluation.
Acute hypoxemic respiratory failure requiring high flow oxygen. FiO2 80% / 60 L/min.
ABG 08/14/2024: 7.48/-respiratory alkalosis acute
Pneumonia: Suspect aspiration after emesis episode.
Chest x-ray: Reviewed, showed bibasilar infiltrates.
Negative COVID/negative syncytial virus/negative influenza
MRSA screening negative
CT chest 08/14/2024:Reviewed, showed no evidence for central pulmonary embolism. Bibasilar confluent parenchymal opacity in both lower lobes and left upper lobe. Atelectasis versus pneumonia. Small right pleural effusion, minimal left pleural
effusion. Moderate hiatal hernia. Fatty liver infiltration.
Sepsis syndrome due to above.
Moderately increased proBNP 1590/negative troponin
Leukocytosis
Acute kidney injury - improving
Conditions present prior admission:
Left hemiparesis status post CVA
Hypertension
Type 2 diabetes
Atrial fibrillation of unknown type-not on anticoagulation
Anxiety/depression
History of autism
GERD
History of bladder cancer
Assessment and plan
At this time, patient continues to require high flow oxygen and nonrebreather. Desaturation into the low 80s at times
Chest x-ray 2/ with worsening bilateral infiltrates, poor inspiratory effort
Although he is expectorating thick mucus, he is still hypoxic
Intermittent right-sided chest discomfort noted
Requiring nonrebreather on top of high flow with any movement, decreases in the low 80s with any movement, turning per nursing
Seems to respond to morphine intermittently
Moving forward
Clinical picture suggestive of severe pneumonia - likely aspiration with severe hypoxemic respiratory failure requiring high flow oxygen.
Respiratory status is tenuous.
Currently on high flow oxygen and nonrebreather, 94%
Patient does have a strong cough effort. Coughing up thick yellow phlegm.
Essentially bedbound, likely subsegmental atelectasis also contributing to hypoxemia
Airway clearance measures will continue
Unfortunately, chest x-ray is not improved
Reviewed with patient that we do not have any additional therapeutic options at this time
Although patient has strong cough, has poor inspiratory effort most of the time
Patient stated that he does not want to be on a ventilator and does not want CPR. Advanced directives confirmed.
At patient request, I called his friend Xander and reviewed his poor prognosis.
Not sure how much Xander understand as Xander's friend is also asking whether patient is on oxygen
Patient is now n.p.o.
He may require Dobbhoff tube with tube feeds
Hiatal hernia noted, head of bed elevated at all times
CT chest with bibasilar consolidation
Antibiotics -meropenem. 08/15/2024; doxy started 08/18/2024
Sputum culture with normal respiratory juan c.
MRSA screening negative. Off vancomycin
Continue high flow oxygen to maintain pulse ox >90%
Incentive spirometry encouraged-due to autism and left hemiplegia difficulty performed.
Attempts to wean oxygen as tolerated
Continue aggressive secretion clearance interventions
VEST
Percussion therapy
Continue with nebulizers-DuoNebs QID
3% saline nebs QID
complaining of nasal congestion: nasal saline spray.
Not bronchospastic on exam-no indication for systemic corticosteroids at this time
Mucolytics
Avoid sedatives if able.
Given DNR status - patient does not want aggressive care as he has been expressing through the course of the hospital stay. Morphine as needed can be given for increased work of breathing.
Previously discussed with Dr. Peñaloza, he also updated sister and financial power of corporate attorney. Both agree with plan. If there is clinical deterioration then comfort measures only.
CVA with residual left hemiparesis. Stable
DVT prophylaxis with heparin
-
Prognosis guarded; hospice was discussed with the patient by Dr. Glez as well as Dr. Munson. Patient states to me that he is not interested in hospice. This will be an ongoing discussion
I brought it up again today. Patient asked me to contact his friend Xander. I spoke with Xander as well. Xander was asking questions to suggest poor insight into the process such as do have him on oxygen, heavy given him any antibiotics.
I also contacted his Sister Annette power of corporate attorney. Reviewed his clinical course over the last 2 days, increased oxygen requirement, worsening chest x-ray. Also reviewed the fact that patient is currently n.p.o.
She is coming in with other family and plans on meeting with primary service to determine goals of care
All questions answered
Subjective Data
-
Date of Service:
Date of Service: August 23, 2024
Chief Complaint: Pulmonary Follow Up (Pneumonia/hypoxemic respiratory failure)
Subjective:
Patient does not feel well. Has a variety complaints. Remains on high flow, nonrebreather. Able to converse. Becomes tearful when reviewing prognosis
Objective Data
Data Reviewed
Vital Signs / I&O / Oxygen:
Vital Signs
Temp Pulse Resp BP Pulse Ox
98.3 F 82 22 114/61 95
08/23/24 07:35 08/23/24 07:20 08/23/24 07:20 08/23/24 06:00 08/23/24 07:20
Intake and Output
08/22/24 08/23/24 08/24/24
06:59 06:59 06:59
Intake Total 350 / 350
Output Total 750 / 750 575 / 575
Balance -400 / -400 -575 / -575
SaO2 95
Nasal Cannula flow liters per 50
minute
Physical Exam
General: Comfortable (Conversing)
HEENT: Normocephalic and Anicteric
Cardiovascular: S1-S2, Regular Rhythm, Murmur (n) and Peripheral Edema (negative)
Respiratory: Wheeze (n), Crackles (few), Rhonchi (n), Non-Labored Respirations, Stridor (n) and Other (Poor inspiratory effort, decreased)
GI: Soft, Non Distended, Non Tender and Normal Bowel Sounds
Neurology: Awake, Alert, No Motor Deficits (Conversant, moving right side) and Other (Left hemiplegia)
Skin: Cyanosis (n) and Bruising (Few)
Labs/Micro/Reports
Lab Data
08/23/24 05:21
08/23/24 05:21
[2024-08-23] MEDS: VIBRAMYCIN 100 MG PO (10:35)
[2024-08-23] MEDS: MUCINEX 600 MG PO (10:38)
[2024-08-23] MEDS: VISBIOME 1 CAP PO (10:38)
[2024-08-23] MEDS: COLACE 200 MG PO (10:39)
[2024-08-23] MEDS: LOW STRENGTH ASPIRIN 81 MG PO (10:40)
[2024-08-23] MEDS: SENOKOT 8.6 MG PO (10:40)
--- NOTE | 2024-08-23 11:01 | PTOTSP ---
Dysphagia Therapy
Impression: Elevated risk for decreased breathing/swallowing coordination and dysphagia persists given current respiratory status (50 LPM HFNC, 100% FiO2 with non-rebreather).
Plan of care:
1. Continue NPO pending further GOC discussions.
2. Medications: essential medications 1 at a time, whole in puree; crush large pills and/or open capsules as medically cleared; D/C if respiratory decline and provide non-oral as appropriate
3. Oral care 3x daily
4. ARHP small single sips of water (sparingly) with RN supervision after oral care
5. Dysphagia tx f/u at the acute care level. Respiratory status is a barrier to leaving the floor for videofluoroscopic swallow study at this time
[2024-08-23 12:16] LABS: Glucose - Point of Care 167 mg/dl (70-99)
[2024-08-23] MEDS: NOVOLOG FLEXPEN-MODERATE RESISTANCE 1 UNITS SC ×3 (12:53→23:55)
--- NOTE | 2024-08-23 13:52 | PTCARENOTE ---
Assumed care of patient at beginning of this shift from previous RN with high flow in use: 50L/100% and NRB. Patient refused morning meds in applesauce; attempted with water as patient had been taking per report. Patient able to take most of the
morning meds but then began coughing and POx dropped to 87-88%. Repositioned and suctioned orally; patient recovered to 91-93%. Dr Glez and speech therapist notified via TT. Gerri RYDER in to see patient; he was able then take pills in applesauce.
Remains NPO except meds. The remainder of morning meds were given. POx currently 90-93% on high flow with NRB. See worklist for full assessment and vital signs.
[2024-08-23] MEDS: MERREM IV (15:17)
[2024-08-23] MEDS: STERILE WATER FOR INJECTION IV (15:17)
[2024-08-23] MEDS: MERREM 1000 MG IV ×2 (16:48→23:50)
[2024-08-23] MEDS: STERILE WATER FOR INJECTION 20 ML IV ×2 (16:48→23:50)
[2024-08-23 17:48] LABS: Glucose - Point of Care 164 mg/dl (70-99)
[2024-08-23] MEDS: VIBRAMYCIN 260 MG IV (19:50)
[2024-08-23 21:18] LABS: Glucose - Point of Care 144 mg/dl (70-99)
[2024-08-23] MEDS: DESYREL 25 MG PO (22:24)
[2024-08-23] MEDS: ROBITUSSIN DM 5 ML PO (22:26)
[2024-08-24] VITALS (11 sets, daily range): BP systolic 114–153; BP diastolic 55–91; BMI 26.4
[2024-08-24 00:04] LABS: Glucose - Point of Care 153 mg/dl (70-99)
[2024-08-24] MEDS: LR 1000 IV ×2 (05:42→22:39)
[2024-08-24] MEDS: NOVOLOG FLEXPEN-MODERATE RESISTANCE SC ×3 (05:42→23:08)
[2024-08-24 05:43] LABS: Glucose - Point of Care 136 mg/dl (70-99)
[2024-08-24] MEDS: TYLENOL PO ×2 (05:43→15:53)
--- NOTE | 2024-08-24 05:45 | PTCARENOTE ---
Received pt at change of shift. HFNC with NRB - pulse ox 91% and desats quickly when NRB is removed from face. Frequent oral secretions/productive cough ,thick and white. Checked under sacral foam - skin remains closed, no open areas.
[2024-08-24 06:02] LABS: % Basophils 0.2 % (0-2); % Eosinophils 3.1 % (0-6); % Immature Granulocytes 1.2 % (0-0.5); % Lymphocytes 10.7 % (20.5-51.1); % Monocytes 6.8 % (1.7-9.3); Absolute Eosinophils 0.4 10^3/uL (0-0.7); Absolute Immature Granulocytes 0.2 10^3/uL (0-0.05); Absolute Lymphocytes 1.5 10^3/uL (1.2-3.4); Absolute Neutrophils 11.1 10^3/uL (1.4-6.5); Hematocrit 24.1 % (39.0-52.0); Hemoglobin 7.9 g/dL (13.0-18.0); Mean Corp Hgb Conc. 32.8 g/dL (33.0-37.0); Mean Corpuscular Hgb 29.3 pg (27.0-31.0); Mean Corpuscular Volume 89.3 fL (80.0-94.0); Mean Platelet Volume 8.7 fL (7.4-10.4); Nucleated Red Blood Cells % 0 % (-); Platelet Count 641 10^3/uL (130-400); Red Cell Dist. Width 14.4 % (11.5-14.5); White Blood Cell Count 14.2 10^3/uL (4.8-10.8)
[2024-08-24 06:18] LABS: Blood Urea Nitrogen 22 mg/dl (9-20); Calcium 8.2 mg/dl (8.4-10.2); Carbon Dioxide 24 mmol/L (22-30); Chloride 107 mmol/L (98-107); Estimated Creatinine Clearance 77 ml/min; Glucose 128 mg/dl (70-99); Potassium 4.2 mmol/L (3.5-5.1); Sodium 139 mmol/L (135-145); eGFR > 60.00
[2024-08-24] MEDS: SODIUM CHLORIDE 3% FOR INHALATION 1 VIAL INH ×4 (07:49→19:40)
[2024-08-24] MEDS: DUONEB 3 ML INH ×4 (07:49→19:40)
--- NOTE | 2024-08-24 08:11 | W.PN.PUL3 ---
Today's Communication / Plan
-
Unfortunately, no additional pulmonary recommendations at this time
Continue with supportive care with comfort being a priority if deteriorates
Ongoing discussion regarding goals of care
We will sign off. Please call with questions
Assessment
-
73-year-old man with past medical history noted. senior care resident. Admitted to the hospital after an episode of vomiting and subsequent hypoxemia and chest discomfort. We were consulted on 08/15/2024 for evaluation.
Acute hypoxemic respiratory failure requiring high flow oxygen. FiO2 80% / 60 L/min.
ABG 08/14/2024: 7.48/-respiratory alkalosis acute
Pneumonia: Suspect aspiration after emesis episode.
Chest x-ray: Reviewed, showed bibasilar infiltrates.
Negative COVID/negative syncytial virus/negative influenza
MRSA screening negative
CT chest 08/14/2024:Reviewed, showed no evidence for central pulmonary embolism. Bibasilar confluent parenchymal opacity in both lower lobes and left upper lobe. Atelectasis versus pneumonia. Small right pleural effusion, minimal left pleural
effusion. Moderate hiatal hernia. Fatty liver infiltration.
Sepsis syndrome due to above.
Moderately increased proBNP 1590/negative troponin
Leukocytosis
Acute kidney injury - improving
Conditions present prior admission:
Left hemiparesis status post CVA
Hypertension
Type 2 diabetes
Atrial fibrillation of unknown type-not on anticoagulation
Anxiety/depression
History of autism
GERD
History of bladder cancer
Assessment and plan
At this time, patient continues to require high flow oxygen and nonrebreather. Desaturation into the low 70-80s at times
Chest x-ray 2/5 with worsening bilateral infiltrates, poor inspiratory effort
Although he is expectorating thick mucus, he is still hypoxic
Presently he is lying flat, appears to be comfortable on high flow and nonrebreather
Seems to respond to morphine intermittently
Moving forward
Unfortunately, we do not have any additional pulmonary recommendations at this time
Continue with airway clearance, positional therapy, oxygen therapy
Patient remains n.p.o., high aspiration risk
Remains on antibiotics
Sister who is power of deputy commonwealth's attorney does not want any feeding tube
Continue aggressive secretion clearance interventions
VEST
Percussion therapy
Continue with nebulizers-DuoNebs QID
3% saline nebs QID
complaining of nasal congestion: nasal saline spray.
Not bronchospastic on exam-no indication for systemic corticosteroids at this time
Mucolytics
Avoid sedatives if able.
Patient is DNR
CVA with residual left hemiparesis. Stable
DVT prophylaxis with heparin
We will sign off. Please call with questions
-
Prior discussion:
Prognosis guarded; hospice was discussed with the patient by Dr. Glez as well as Dr. Munson. Patient states to me that he is not interested in hospice. This will be an ongoing discussion
I brought it up again today. Patient asked me to contact his friend Xander. I spoke with Xander as well. Xander was asking questions to suggest poor insight into the process such as do have him on oxygen, heavy given him any antibiotics.
I also contacted his Sister Annette bergeron of deputy commonwealth's attorney. Reviewed his clinical course over the last 2 days, increased oxygen requirement, worsening chest x-ray. Also reviewed the fact that patient is currently n.p.o.
Subjective Data
-
Date of Service:
Date of Service: August 24, 2024
Chief Complaint: Pulmonary Follow Up (Pneumonia/hypoxemic respiratory failure)
Subjective:
Unfortunately, patient remains on high flow and nonrebreather. Desaturates into the 70s when nonrebreather was removed. Patient currently sleeping comfortably. Opens eyes during exam but did not awaken
Objective Data
Data Reviewed
Vital Signs / I&O / Oxygen:
Vital Signs
Temp Pulse Resp BP Pulse Ox
97.7 F 80 20 122/57 96
08/24/24 07:32 08/24/24 07:51 08/24/24 07:51 08/24/24 04:00 08/24/24 07:51
Intake and Output
08/23/24 08/24/24 08/25/24
06:59 06:59 06:59
Intake Total 1160 / 1160
Output Total 575 / 575 1600 / 1600
Balance -575 / -575 -440 / -440
SaO2 96
Nasal Cannula flow liters per 50
minute
Physical Exam
General: Comfortable (Conversing)
HEENT: Normocephalic
Cardiovascular: S1-S2, Regular Rhythm, Murmur (n) and Peripheral Edema (negative)
Respiratory: Wheeze (n), Crackles (few), Rhonchi (n), Non-Labored Respirations, Stridor (n) and Other (Poor inspiratory effort, decreased)
GI: Soft, Non Distended, Non Tender and Normal Bowel Sounds
Neurology: Lethargic (Sleeping but opens eyes during exam) and Other (Left hemiplegia)
Skin: Cyanosis (n) and Bruising (Few)
Labs/Micro/Reports
Lab Data
08/24/24 05:32
08/24/24 05:32
[2024-08-24] MEDS: NORVASC 10 MG PO (08:57)
[2024-08-24] MEDS: COLACE 200 MG PO (08:57)
[2024-08-24] MEDS: LOW STRENGTH ASPIRIN 81 MG PO (08:57)
[2024-08-24] MEDS: PLAVIX 75 MG PO (08:57)
[2024-08-24] MEDS: LIDOCAINE 4% PATCH 1 PATCH TOPICAL (08:57)
[2024-08-24] MEDS: SENOKOT 8.6 MG PO (08:57)
[2024-08-24] MEDS: CLARITIN 10 MG PO (08:58)
[2024-08-24] MEDS: LIPITOR 20 MG PO (08:58)
[2024-08-24] MEDS: MUCINEX 600 MG PO ×2 (08:58→20:30)
[2024-08-24] MEDS: HEPARIN 5000 UNITS SC ×2 (08:58→20:31)
[2024-08-24] MEDS: TOPROL XL 12.5 MG PO (08:58)
[2024-08-24] MEDS: MERREM 1000 MG IV ×3 (08:58→23:01)
[2024-08-24] MEDS: VISBIOME 1 CAP PO (08:59)
[2024-08-24] MEDS: STERILE WATER FOR INJECTION 20 ML IV ×3 (08:59→23:01)
[2024-08-24] MEDS: VIBRAMYCIN 260 MG IV ×2 (08:59→20:31)
--- NOTE | 2024-08-24 09:31 | W.PN.HOSP.TC ---
Today's Communication/Plan
-
Continue current efforts
Assessment / Plan
Assessment / Plan
Gen-AAOx3, NAD
HEENT-NC, AT, anicteric, clear oral mm
Neck-supple
CV-reg, no M, +S1/S2
Lungs-bilateral rhonchi
Abd-soft, NT, ND
Ext-no edema
Musculoskeletal-no cyanosis, clubbing
Skin-warm and dry
Neuro-grossly non-focal
Psych-calm, cooperative
Acute Hypoxic Respiratory Failure -Secondary to Severe Pneumonia and Significant Atelectasis. Oxygenation worsening unfortunately. Now on high flow nasal cannula, 50 L, 100% FiO2, nonrebreather mask. August 22 chest x-ray shows worsening
bilateral opacifications, likely worsening aspiration.
Rapid Response on 08/14/24 due to hypoxia.
Sepsis Secondary to aspiration pneumonia -blood cultures never drawn for unclear reasons. Sputum culture with usual respiratory juan c. RSV negative, COVID-negative, Influenza negative. Currently on empiric meropenem, doxycycline. Day 10 of
antibiotics.
Mild Bilateral Effusions on CT Chest as well as confluent parenchymal opacity within both lower lobes as well as the posterior aspect of the left upper lobe.
Dysphagia -causing severe aspiration pneumonia. Made n.p.o. on August 22 as per speech therapy recommendation. Suspect ongoing aspiration in the hospital. At this point in time his prognosis remains very poor for recovery. Feeding tube was
discussed with patient and patient's sister, his sister who is the POA does not want to pursue a PEG tube. I agree with this as I think it would cause worsening aspiration and worsening hypoxia.
Hold off on Dobbhoff tube placement as this will also worsen his respiratory status due to ongoing aspiration.
Hypokalemia - RESOLVED
CHIQUITA - RESOLVED
- Likely secondary to sepsis as noted above.
- IVFs LR were previously given with improvement in renal function.
Atrial fibrillation of unknown type-not on anticoagulation
- Continue current medications including beta-rozina.
- Patient is not currently maintained on OAC - unclear why.
Essential Hypertension
- Stable. Continue current meds. Change once daily metoprolol to succinate.
DM2 with hyperglycemia - Stable. Glucose 137 this morning. Hemoglobin A1c 8.3%. Hold metformin acutely. Moderate resistance aspart scale.
- Follow glucose and cover with SSI as needed.
Acute on chronic anemia -hemoglobin slowly trending down, 7.9 this morning. 12.1 on admission. No evidence of bleeding clinically. Component of hemodilution from IV fluid administration, anemia due to critical illness, etc. consent for potential
blood transfusion obtained by sister on the phone.
ASCVD
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
- Stable. No new neurologic deficits.
- Continue DAPT, statin, etc.
- Follow for any clinical changes.
- PT / OT evaluations.
Anxiety / Depression
- Stable. Continue outpatient medications.
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
GERD
History of bladder cancer
DVT Prophylaxis: Subcutaneous Heparin
DNR
Dispo -prognosis unfortunately remains poor for recovery. Updated family and POA extensively. Provided another update to sister this morning.
Anticipated Discharge: > 48 hours
Subjective/Interval History
-
Date of Service: August 24, 2024
Patient seen and examined. No complaints.
Objective Data
-
Labs:
Laboratory Results
08/24/24
05:32
WBC 14.2 H
Hgb 7.9 L
Hct 24.1 L
Plt Count 641 H
Sodium 139
Potassium 4.2
Chloride 107
Carbon Dioxide 24
BUN 22 H
Creatinine 0.8
Glucose 128 H
Calcium 8.2 L
Vital Signs:
Vital Signs
Temp Pulse Resp BP Pulse Ox
97.7 F 80 20 122/57 96
08/24/24 07:32 08/24/24 07:51 08/24/24 07:51 08/24/24 04:00 08/24/24 07:51
I&O
08/23/24 08/24/24 08/25/24
06:59 06:59 06:59
Intake Total 1160 / 1160
Output Total 575 / 575 1600 / 1600
Balance -575 / -575 -440 / -440
Review of Systems
-
History Source: Patient
All other systems: Reviewed and negative
[2024-08-24 10:16] LABS: Glucose - Point of Care 153 mg/dl (70-99)
[2024-08-24] MEDS: NOVOLOG FLEXPEN-MODERATE RESISTANCE 1 UNITS SC (15:01)
[2024-08-24 15:10] LABS: Glucose - Point of Care 154 mg/dl (70-99)
[2024-08-24 17:18] LABS: Glucose - Point of Care 139 mg/dl (70-99)
--- NOTE | 2024-08-24 18:43 | PTCARENOTE ---
pt remains npo. see nursing assessment. he is still on high flow with nonrebreather. attempted to remove nonrebreather and pt desats into 80s. continues to be short of breath with exertion but seems comfortable at rest.
[2024-08-24] MEDS: TYLENOL 1000 MG PO (22:25)
[2024-08-24] MEDS: DESYREL 25 MG PO (22:25)
[2024-08-24 22:38] LABS: Glucose - Point of Care 144 mg/dl (70-99)
[2024-08-24] MEDS: MORPHINE SULFATE 1 MG IV (23:01)
[2024-08-25] VITALS (13 sets, daily range): BP systolic 95–145; BP diastolic 57–82; BMI 26.1
--- NOTE | 2024-08-25 03:35 | PTCARENOTE ---
Received pt at change of shift. Pt remains on HFNC with NRB. pulse ox in the 90s but desats to low 80s when NRB is removed for any reason. Pt very anxious about prognosis and states 'I don't want to ' frequently. Emotional support provided
for patient. PRN Morphine provided for dyspnea (see MAR). Oral hygiene provided. Resting in bed with call felder in reach.
[2024-08-25] MEDS: NOVOLOG FLEXPEN-MODERATE RESISTANCE 1 UNITS SC ×2 (05:54→11:59)
[2024-08-25 06:06] LABS: Glucose - Point of Care 152 mg/dl (70-99)
[2024-08-25] MEDS: TYLENOL PO (06:12)
[2024-08-25 06:16] LABS: % Basophils 0.3 % (0-2); % Eosinophils 2.4 % (0-6); % Immature Granulocytes 1.1 % (0-0.5); % Neutrophils 82.2 % (42.2-75.2); Absolute Basophils 0.1 10^3/uL (0-0.2); Absolute Eosinophils 0.4 10^3/uL (0-0.7); Absolute Immature Granulocytes 0.2 10^3/uL (0-0.05); Absolute Lymphocytes 1.2 10^3/uL (1.2-3.4); Absolute Monocytes 1.2 10^3/uL (0.1-0.6); Absolute Neutrophils 13.5 10^3/uL (1.4-6.5); Hematocrit 26.4 % (39.0-52.0); Hemoglobin 8.7 g/dL (13.0-18.0); Mean Corpuscular Hgb 29.9 pg (27.0-31.0); Mean Corpuscular Volume 90.7 fL (80.0-94.0); Mean Platelet Volume 8.4 fL (7.4-10.4); Nucleated Red Blood Cells % 0 % (-); Platelet Count 689 10^3/uL (130-400); Red Blood Cell Count 2.91 10^6/uL (4.70-6.10); Red Cell Dist. Width 14.3 % (11.5-14.5); White Blood Cell Count 16.5 10^3/uL (4.8-10.8)
[2024-08-25 06:23] LABS: Blood Urea Nitrogen 18 mg/dl (9-20); Calcium 8.2 mg/dl (8.4-10.2); Carbon Dioxide 24 mmol/L (22-30); Chloride 107 mmol/L (98-107); Estimated Creatinine Clearance 77 ml/min; Glucose 136 mg/dl (70-99); Potassium 4.5 mmol/L (3.5-5.1); Sodium 134 mmol/L (135-145); eGFR > 60.00
[2024-08-25] MEDS: DUONEB 3 ML INH ×4 (07:23→19:19)
[2024-08-25] MEDS: SODIUM CHLORIDE 3% FOR INHALATION 1 VIAL INH ×4 (07:24→19:19)
--- NOTE | 2024-08-25 08:43 | W.PN.HOSP.TC ---
Today's Communication/Plan
-
Continue current care
Assessment / Plan
Assessment / Plan
Gen-AAOx3, NAD
HEENT-NC, AT, anicteric, clear oral mm
Neck-supple
CV-reg, no M, +S1/S2
Lungs-bilateral rhonchi
Abd-soft, NT, ND
Ext-no edema
Musculoskeletal-no cyanosis, clubbing
Skin-warm and dry
Neuro-grossly non-focal
Psych-calm, cooperative
Acute Hypoxic Respiratory Failure -Secondary to Severe Pneumonia and Significant Atelectasis. Oxygenation worsening unfortunately. Stable on high flow nasal cannula, 50 L, 100% FiO2, nonrebreather mask. August 22 chest x-ray shows worsening
bilateral opacifications, likely worsening aspiration.
Rapid Response on 08/14/24 due to hypoxia.
Sepsis Secondary to aspiration pneumonia -blood cultures never drawn for unclear reasons. Sputum culture with usual respiratory juan c. RSV negative, COVID-negative, Influenza negative. Currently on empiric meropenem, doxycycline. Day 10 of
antibiotics.
Mild Bilateral Effusions on CT Chest as well as confluent parenchymal opacity within both lower lobes as well as the posterior aspect of the left upper lobe.
Dysphagia -causing severe aspiration pneumonia. Made n.p.o. on August 22 as per speech therapy recommendation. Suspect ongoing aspiration in the hospital. At this point in time his prognosis remains very poor for recovery. Feeding tube was
discussed with patient and patient's sister, his sister who is the POA does not want to pursue a PEG tube. I agree with this as I think it would cause worsening aspiration and worsening hypoxia.
Hold off on Dobbhoff tube placement as this will also worsen his respiratory status due to ongoing aspiration.
Speech therapy input noted, still too high risk to assess given ongoing respiratory failure.
Maintain n.p.o., continue IV fluids.
Hypokalemia - RESOLVED
Hyponatremia -134.
CHIQUITA - RESOLVED
- Likely secondary to sepsis as noted above.
- IVFs LR were previously given with improvement in renal function.
Atrial fibrillation of unknown type-not on anticoagulation
- Continue current medications including beta-rozina.
- Patient is not currently maintained on OAC - unclear why.
Essential Hypertension
- Stable. Continue current meds. Change once daily metoprolol to succinate.
DM2 with hyperglycemia - Stable. Glucose 137 this morning. Hemoglobin A1c 8.3%. Hold metformin acutely. Moderate resistance aspart scale.
- Follow glucose and cover with SSI as needed.
Acute on chronic anemia -hemoglobin stable at 8.7 today. 12.1 on admission. No evidence of bleeding clinically. Component of hemodilution from IV fluid administration, anemia due to critical illness, etc. consent for potential blood transfusion
obtained by sister on the phone.
ASCVD
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
- Stable. No new neurologic deficits.
- Continue DAPT, statin, etc.
- Follow for any clinical changes.
- PT / OT evaluations.
Anxiety / Depression
- Stable. Continue outpatient medications.
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
GERD
History of bladder cancer
DVT Prophylaxis: Subcutaneous Heparin
DNR
Dispo -prognosis unfortunately remains poor for recovery. Updated family and POA extensively.
Anticipated Discharge: > 48 hours
Subjective/Interval History
-
Date of Service: August 25, 2024
Patient seen and examined. Complaining of stuffy nose. Cough.
Objective Data
-
Labs:
Laboratory Results
08/25/24
05:53
WBC 16.5 H
Hgb 8.7 L
Hct 26.4 L
Plt Count 689 H
Sodium 134 L
Potassium 4.5
Chloride 107
Carbon Dioxide 24
BUN 18
Creatinine 0.8
Glucose 136 H
Calcium 8.2 L
Vital Signs:
Vital Signs
Temp Pulse Resp BP Pulse Ox
99.4 F 91 22 134/66 92
08/25/24 07:30 08/25/24 07:26 08/25/24 07:26 08/25/24 06:00 08/25/24 07:27
I&O
08/24/24 08/25/24 08/26/24
06:59 06:59 06:59
Intake Total 1160 / 1160
Output Total 1600 / 1600 1750 / 1750
Balance -440 / -440 -1750 / -1750
Review of Systems
-
History Source: Patient
All other systems: Reviewed and negative
[2024-08-25] MEDS: STERILE WATER FOR INJECTION 20 ML IV ×2 (08:59→16:54)
[2024-08-25] MEDS: VIBRAMYCIN 260 MG IV ×2 (08:59→20:19)
[2024-08-25] MEDS: HEPARIN 5000 UNITS SC ×2 (08:59→20:18)
[2024-08-25] MEDS: MERREM 1000 MG IV ×2 (08:59→16:54)
[2024-08-25] MEDS: LIDOCAINE 4% PATCH 1 PATCH TOPICAL (09:00)
[2024-08-25] MEDS: MUCINEX 600 MG PO ×2 (09:15→20:18)
[2024-08-25] MEDS: LOW STRENGTH ASPIRIN 81 MG PO (09:15)
[2024-08-25] MEDS: SENOKOT 8.6 MG PO (09:15)
[2024-08-25] MEDS: TOPROL XL 12.5 MG PO (09:15)
[2024-08-25] MEDS: LIPITOR 20 MG PO (09:15)
[2024-08-25] MEDS: CLARITIN 10 MG PO (09:15)
[2024-08-25] MEDS: PLAVIX 75 MG PO (09:16)
[2024-08-25] MEDS: VISBIOME 1 CAP PO (09:16)
[2024-08-25] MEDS: NORVASC 10 MG PO (09:17)
[2024-08-25] MEDS: COLACE 200 MG PO (09:18)
--- NOTE | 2024-08-25 09:59 | PTCARENOTE ---
Assumed care of patient at beginning of this shift from previous RN; continues with high flow and NRB, POx 91-93%. Patient able to take pills whole in applesauce this morning. Oral care continues with suctioning as needed; patient will also
frequently spit into mask. Remains anxious regarding health status; emotional support provided. See worklist for assessment, interventions and vital signs; see MAR for med administration.
--- NOTE | 2024-08-25 10:12 | PTCARENOTE ---
No documented bm noted on worklist. TT sent to Dr Glez; prn suppository ordered.
[2024-08-25 11:55] LABS: Glucose - Point of Care 155 mg/dl (70-99)
[2024-08-25] MEDS: LR 1000 IV (12:00)
[2024-08-25] MEDS: DULCOLAX 10 MG RECTAL (12:09)
[2024-08-25] MEDS: TYLENOL 1000 MG PO (16:53)
[2024-08-25 18:35] LABS: Glucose - Point of Care 131 mg/dl (70-99)
[2024-08-25] MEDS: NOVOLOG FLEXPEN-MODERATE RESISTANCE SC (18:41)
[2024-08-25] MEDS: DESYREL 25 MG PO (20:19)
--- NOTE | 2024-08-25 22:19 | PTCARENOTE ---
Received pt from [facility]. AAOx3, forgetful and anxious at times, able to make needs known. Calls out frequently, instructed on using call felder. NSR on monitor. Remains on 50L 100% HFNC with nonrebreather. SaO2 92% when resting. Pills taken whole
in applesauce, small slow sips of water given sparingly for comfort. CC#25 intact. Q2T. LR@75ml/hr through [facility]. Care ongoing.
[2024-08-26] VITALS (12 sets, daily range): BP systolic 100–154; BP diastolic 53–93; BMI 26.1
[2024-08-26] MEDS: STERILE WATER FOR INJECTION 20 ML IV ×2 (00:02→09:21)
[2024-08-26] MEDS: MERREM 1000 MG IV ×2 (00:02→09:22)
[2024-08-26] MEDS: TYLENOL 1000 MG PO ×2 (00:02→09:20)
[2024-08-26] MEDS: NOVOLOG FLEXPEN-MODERATE RESISTANCE SC ×3 (00:02→18:34)
[2024-08-26] MEDS: LR 1000 IV ×2 (00:03→15:31)
[2024-08-26 00:09] LABS: Glucose - Point of Care 132 mg/dl (70-99)
[2024-08-26 05:14] LABS: % Basophils 0.3 % (0-2); % Eosinophils 1.7 % (0-6); % Immature Granulocytes 1.1 % (0-0.5); % Lymphocytes 7.6 % (20.5-51.1); % Monocytes 5.6 % (1.7-9.3); % Neutrophils 83.7 % (42.2-75.2); Absolute Basophils 0.1 10^3/uL (0-0.2); Absolute Eosinophils 0.3 10^3/uL (0-0.7); Absolute Immature Granulocytes 0.2 10^3/uL (0-0.05); Absolute Lymphocytes 1.3 10^3/uL (1.2-3.4); Absolute Monocytes 0.9 10^3/uL (0.1-0.6); Absolute Neutrophils 13.9 10^3/uL (1.4-6.5); Hematocrit 28.7 % (39.0-52.0); Hemoglobin 9.3 g/dL (13.0-18.0); Mean Corp Hgb Conc. 32.4 g/dL (33.0-37.0); Mean Corpuscular Hgb 29.3 pg (27.0-31.0); Mean Corpuscular Volume 90.5 fL (80.0-94.0); Mean Platelet Volume 8.4 fL (7.4-10.4); Nucleated Red Blood Cells % 0 % (-); Platelet Count 843 10^3/uL (130-400); Red Blood Cell Count 3.17 10^6/uL (4.70-6.10); Red Cell Dist. Width 14.4 % (11.5-14.5); White Blood Cell Count 16.6 10^3/uL (4.8-10.8)
[2024-08-26 05:25] LABS: Blood Urea Nitrogen 15 mg/dl (9-20); Calcium 8.9 mg/dl (8.4-10.2); Carbon Dioxide 21 mmol/L (22-30); Chloride 104 mmol/L (98-107); Estimated Creatinine Clearance 77 ml/min; Glucose 131 mg/dl (70-99); Potassium 4.7 mmol/L (3.5-5.1); Sodium 135 mmol/L (135-145); eGFR > 60.00
[2024-08-26 06:04] LABS: Glucose - Point of Care 135 mg/dl (70-99)
[2024-08-26] MEDS: DUONEB 3 ML INH ×4 (07:06→17:43)
[2024-08-26] MEDS: SODIUM CHLORIDE 3% FOR INHALATION 1 VIAL INH ×4 (07:06→17:43)
--- NOTE | 2024-08-26 08:41 | W.PN.HOSP.TC ---
Addendum entered and electronically signed by Jayme Glez DO 08/26/24 14:22:
I met with patient and sister and [id number] at the bedside today. We discussed his current situation and poor overall prognosis. Clinical course. All questions were answered.
Patient states he is feeling better and less short of breath.
We discussed improvement in the chest x-ray but persistent respiratory failure and leukocytosis. Febrile last night. ID has been consulted.
Seen by speech therapy today and n.p.o. still recommended due to high risk for aspiration.
At the request of the patient, I called his friend Zeke to discuss his situation. I got a voicemail and left a message.
Addendum entered and electronically signed by Jayme Glez DO 08/26/24 11:18:
Chest x-ray today with overall improvement in aeration.
However, respiratory failure persists as well as leukocytosis and low-grade fever. Consult ID for any input.
Original Note:
Today's Communication/Plan
-
Chest x-ray
Assessment / Plan
Assessment / Plan
Gen-AAOx3, NAD
HEENT-NC, AT, anicteric, clear oral mm
Neck-supple
CV-reg, no M, +S1/S2
Lungs-bilateral rhonchi
Abd-soft, NT, ND
Ext-no edema
Musculoskeletal-no cyanosis, clubbing
Skin-warm and dry
Neuro-grossly non-focal
Psych-calm, cooperative
Acute Hypoxic Respiratory Failure -Secondary to Severe Pneumonia and Significant Atelectasis. Oxygenation worsening unfortunately. Stable on high flow nasal cannula, 50 L, 100% FiO2, nonrebreather mask. August 22 chest x-ray shows worsening
bilateral opacifications, likely worsening aspiration.
Rapid Response on 08/14/24 due to hypoxia.
Sepsis Secondary to aspiration pneumonia -blood cultures never drawn for unclear reasons. Sputum culture with usual respiratory juan c. RSV negative, COVID-negative, Influenza negative. Received 12 days of antibiotics in total, currently off.
Fever noted last night, 100.4 �F. Leukocytosis persists. I question whether he has ongoing aspiration. Will check chest x-ray today.
Mild Bilateral Effusions on CT Chest as well as confluent parenchymal opacity within both lower lobes as well as the posterior aspect of the left upper lobe.
Dysphagia -causing severe aspiration pneumonia. Made n.p.o. on August 22 as per speech therapy recommendation. Suspect ongoing aspiration in the hospital. At this point in time his prognosis remains very poor for recovery. Feeding tube was
discussed with patient and patient's sister, his sister who is the POA does not want to pursue a PEG tube. I agree with this as I think it would cause worsening aspiration and worsening hypoxia.
Hold off on Dobbhoff tube placement as this will also worsen his respiratory status due to ongoing aspiration.
Speech therapy input noted, still too high risk to assess given ongoing respiratory failure.
Maintain n.p.o., continue IV fluids.
Hypokalemia - RESOLVED
Hyponatremia - resolved.
CHIQUITA - RESOLVED
- Likely secondary to sepsis as noted above.
- IVFs LR were previously given with improvement in renal function.
Atrial fibrillation of unknown type-not on anticoagulation
- Continue current medications including beta-rozina.
- Patient is not currently maintained on OAC - unclear why.
Essential Hypertension
- Stable. Continue current meds. Change once daily metoprolol to succinate.
DM2 with hyperglycemia - Stable. Glucose 131 this morning. Hemoglobin A1c 8.3%. Hold metformin acutely. Moderate resistance aspart scale.
- Follow glucose and cover with SSI as needed.
Acute on chronic anemia -hemoglobin stable at 9.3 today. 12.1 on admission. No evidence of bleeding clinically. Component of hemodilution from IV fluid administration, anemia due to critical illness, etc. consent for potential blood transfusion
obtained by sister on the phone.
ASCVD
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
- Stable. No new neurologic deficits.
- Continue DAPT, statin, etc.
- Follow for any clinical changes.
- PT / OT evaluations.
Anxiety / Depression
- Stable. Continue outpatient medications.
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
GERD
History of bladder cancer
DVT Prophylaxis: Subcutaneous Heparin
DNR
Dispo -prognosis unfortunately remains poor for recovery. Updated family and POA extensively.
Unfortunately Zack is not improving clinically. He seems to have very little insight as to how ill he really is. I asked him if he wants to make medical decisions for himself or if I should speak with his sister who is the POA. Zakc still
wants to make his own decisions. However, I do not believe he has decision-making capacity given his underlying autism, possible developmental delay.
I had a valentín discussion with him today again regarding my recommendation for comfort measures and hospice. I do not believe that he will survive. I did mention this to him as well and he got somewhat tearful, but again asked me to do everything I
can to make him better.
May need to involve ethics committee moving forward.
Anticipated Discharge: > 48 hours
Subjective/Interval History
-
Date of Service: August 26, 2024
Patient seen and examined. States he feels better. No complaints.
Objective Data
-
Labs:
Laboratory Results
08/26/24
04:37
WBC 16.6 H
Hgb 9.3 L
Hct 28.7 L
Plt Count 843 H D
Sodium 135
Potassium 4.7
Chloride 104
Carbon Dioxide 21 L
BUN 15
Creatinine 0.8
Glucose 131 H
Calcium 8.9
Vital Signs:
Vital Signs
Temp Pulse Resp BP Pulse Ox
98.8 F 93 20 101/61 85
08/26/24 07:50 08/26/24 07:08 08/26/24 07:08 08/26/24 04:00 08/26/24 07:08
I&O
08/25/24 08/26/24 08/27/24
06:59 06:59 06:59
Intake Total 1230 / 1230
Output Total 1750 / 0 2049
Balance -1750 / -1750 -820 / -820
Review of Systems
-
History Source: Patient
All other systems: Reviewed and negative
[2024-08-26] MEDS: COLACE 200 MG PO (09:20)
[2024-08-26] MEDS: CLARITIN 10 MG PO (09:20)
[2024-08-26] MEDS: TOPROL XL 12.5 MG PO (09:21)
[2024-08-26] MEDS: SENOKOT 8.6 MG PO (09:21)
[2024-08-26] MEDS: VISBIOME 1 CAP PO (09:21)
[2024-08-26] MEDS: MUCINEX 600 MG PO ×2 (09:21→19:18)
[2024-08-26] MEDS: LOW STRENGTH ASPIRIN 81 MG PO (09:21)
[2024-08-26] MEDS: NORVASC 10 MG PO (09:21)
[2024-08-26] MEDS: PLAVIX 75 MG PO (09:21)
[2024-08-26] MEDS: LIPITOR 20 MG PO (09:21)
[2024-08-26] MEDS: HEPARIN 5000 UNITS SC ×2 (09:22→19:18)
[2024-08-26] MEDS: VIBRAMYCIN 260 MG IV (09:22)
[2024-08-26] MEDS: LIDOCAINE 4% PATCH 1 PATCH TOPICAL (09:23)
[2024-08-26 11:34] LABS: Glucose - Point of Care 157 mg/dl (70-99)
[2024-08-26] MEDS: NOVOLOG FLEXPEN-MODERATE RESISTANCE 1 UNITS SC (12:05)
--- NOTE | 2024-08-26 12:19 | CON.ID ---
Consultation
-
Date/Time Consultation Requested: July 26, 2024 1116
Date/Time Consultation Performed: July 26, 2024 1220
Requesting Provider: Dr. Jayme Glez
Performing Provider: Dr. Jaleesa Live
Reason for Consultation: Pneumonia improving, hypoxia without improvement
Chief Complaint / Past History
Chief Complaint
Cough/SOB
History of Present Illness
History obtained from review of medical records as well as from the patient. He is a 73-year-old male with diabetes mellitus, autism, CVA with left hemiparesis who presented to the hospital from SNF on August 13 with cough and hypoxia. He had an
episode of emesis at the [facility] then developed respiratory distress. Chest x-ray showed opacities bilateral lungs either atelectasis and or pneumonia. Chest CT showed confluent parenchymal opacities bilateral lower lobes and left upper lobe
suggestive of atelectasis but cannot completely exclude pneumonia. Patient with moderate hiatal hernia. Aspiration pneumonia suspected and he received 6 days of IV vancomycin, 13 days of meropenem, and 9 days of doxycycline. However patient
continues to require high oxygen supplementation. Chest x-ray shows improving infiltrates. Pulmonary was involved and had exhausted all modalities; they have nothing else to offer and recommended hospice. Today patient states his cough is
slightly better. Cough is less productive. Positive short of breath. No nausea or vomiting. No abdominal pain/diarrhea. He wants to get better and does not want hospice at this time.
Past History
Additional Past Medical History:
Diabetes mellitus type 2
Hypertension
CVA with left hemiparesis
Atrial fibrillation
Autism
Anxiety/depression
Hiatal hernia
History of bladder cancer status post TURBT
Allergy History:
Penicillins Allergy (Verified 08/14/24 18:47)
per NH transfer sheet
theophylline Allergy (Verified 08/14/24 18:47)
per NH transfer sheet
Medications Reviewed: Yes
Current Antibiotics:
Meropenem day 13
Doxycycline day #9
Status post vancomycin x 6 days
Social History
Tobacco: Former Smoker (6 years (1970's))
Alcohol: None
Drug: None
Living: Half-Way
Family History
Family History: Not Pertinent
Review of Systems
Review of Systems
General: Change in Appetite; Negative Fever or Chills
HEENT: Negative Sinus Problems, Headache or Pharyngitis
Cardiovascular: Negative Chest Pain
Respiratory: Dyspnea, Cough and Sputum Production
Gasteroenterology: Negative Nausea, Vomiting or Diarrhea
Genital / Urological: Negative Dysuria
Endocrine: Weakness
Neurological: Negative Dizziness
All systems: All other systems were reviewed and were negative
Vital Signs
Temp Pulse Resp BP Pulse Ox
98.8 F 95 27 120/79 94
08/26/24 11:20 08/26/24 10:54 08/26/24 10:54 08/26/24 10:00 08/26/24 10:54
Selected Entries
08/25/24
23:30
Temp 100.4 F H
Physical Exam
Physical Exam
Constitutional: Acutely Ill
Head: Other (No frontal or max or sinus tenderness)
Eyes: Sclera Anicteric
Cardiovascular: Regular Rate and S1/S2
Pulmonary: Clear, Rales (bilateral) and Other (labored)
Gastrointestinal: Soft, Non Tender, Non Distended and Normal Bowel Sounds
Extremities: Negative Edema
Skin: Negative Rash
Neurological: AO x 3
Lab / Diagnostic Study Results
08/26/24 04:37
08/26/24 04:37
Abs Immat Gran (auto) 0.2 10^3/uL (0-0.05) H 08/26/24 04:37
Absolute Neuts (auto) 13.9 10^3/uL (1.4-6.5) H 08/26/24 04:37
Absolute Lymphs (auto) 1.3 10^3/uL (1.2-3.4) 08/26/24 04:37
Absolute Monos (auto) 0.9 10^3/uL (0.1-0.6) H 08/26/24 04:37
Absolute Basos (auto) 0.1 10^3/uL (0-0.2) 08/26/24 04:37
Immature Gran % 1.1 % (0-0.5) H 08/26/24 04:37
Neutrophils % 83.7 % (42.2-75.2) H 08/26/24 04:37
Lymphocytes % 7.6 % (20.5-51.1) L 08/26/24 04:37
Monocytes % 5.6 % (1.7-9.3) 08/26/24 04:37
Eosinophils % 1.7 % (0-6) 08/26/24 04:37
Basophils % 0.3 % (0-2) 08/26/24 04:37
Lactic Acid 2.1 mmol/L (0.7-2.0) H 08/13/24 23:57
Ur Squamous Epith Cells >30 /LPF (Few) 08/15/24 03:56
Microbiology Results
Micro:
08/15/24 00:38 Respiratory Culture - Final
Sputum Usual Respiratory Juan C
Gram Stain - Final
08/15/24 03:56 Urine Culture - Final
Urine NO GROWTH
08/13/24 19:42 MRSA Screen - Final
Nose No Methicillin Resistant Staphylococcus aureus isolated.
08/13/24 19:42 Respiratory Syncytial Virus Ag - Final
Nasal Swab Negative for Respiratory Syncytial Virus.
A false negative result may be obtained with a specimen
collected early in the acute phase. If symptoms persist, a
new specimen should be tested.
08/13/24 18:09 Influenza Types A & B (LAMIN) - Final
Nasal Swab Negative for Influenza A & B, NAAT
Negative results must be combined with clinical observations
and patient history.
Nucleic Acid Amplification test (NAAT)performed on the
[employer] NOW platform.
08/26/24 CXR: Overall, improvement in inflation of both lungs compared to most recent radiograph.
08/14/[address]: Confluent parenchymal opacity within both lower lobes as well as the posterior aspect of the left upper lobe. Morphologic appearance is most suggestive of atelectasis. Underlying pneumonia difficult to completely exclude. Small
right pleural effusion and minimal left pleural effusion. Moderate hiatal hernia/partially intrathoracic stomach, with prominent surrounding fat, extending into the medial aspect of both hemithoraces.
08/14/24 CXR: Increasing parenchymal opacity within the left mid to lower lung, suggesting increasing atelectasis and/or pneumonia. Focal parenchymal opacity in the medial right lower lung, probably without significant interval change, with main
differential considerations of atelectasis and/or pneumonia.
Assessment / Plan
# Acute hypoxemic respiratory failure remains on HFNC + NRB mask without improvement
# Atelectasis vs PNA s/p 6d Vanco, 9d doxy, 13d meropenem
# Low grade fever x 1 resolved
# Leukocytosis persists
- todays' cxr overall improvement of parenchymal opacities
- Sputum cx usual resp juan c
- COVID x 4 neg, RSV neg, Flu neg
- MRSA screen neg
- Pt deemed poor prognosis. Pulm recommended hospice.
- From ID standpoint, nothing to offer patient.
Oxygen status did not respond to broad-spectrum antibiotics.
If viral source, no treatment available (except flu, covid which he is neg)
No suspicion for opportunistic infection.
- Pt is not ready for hospice/comfort measures at this time. He wants to wait and see if he improves.
As per patient's request, I updated his friend Xander.
--- NOTE | 2024-08-26 15:38 | PTCARENOTE ---
Patient currently on high flow only; current POx 95%.
[2024-08-26] MEDS: STERILE WATER FOR INJECTION IV (16:59)
[2024-08-26] MEDS: TYLENOL PO (17:00)
[2024-08-26 18:20] LABS: Glucose - Point of Care 132 mg/dl (70-99)
[2024-08-26] MEDS: DESYREL 25 MG PO (19:18)
[2024-08-26 21:26] LABS: Glucose - Point of Care 136 mg/dl (70-99)
[2024-08-27] VITALS (13 sets, daily range): BP systolic 105–166; BP diastolic 54–98; BMI 25.9
--- NOTE | 2024-08-27 00:35 | PTCARENOTE ---
Pt remains on 50L 100% HFNC with nonbreather. SaO2 91% while asleep. Pt remains NPO per speech therapist orders. Sips of thin liquids given sparingly for comfort.
[2024-08-27] MEDS: TYLENOL PO ×4 (01:11→15:49)
[2024-08-27] MEDS: NOVOLOG FLEXPEN-MODERATE RESISTANCE SC ×4 (01:11→23:36)
[2024-08-27] MEDS: LR 1000 IV ×2 (04:42→16:58)
[2024-08-27 04:48] LABS: % Basophils 0.3 % (0-2); % Immature Granulocytes 0.8 % (0-0.5); % Lymphocytes 7.4 % (20.5-51.1); % Monocytes 8.5 % (1.7-9.3); Absolute Eosinophils 0.3 10^3/uL (0-0.7); Absolute Immature Granulocytes 0.1 10^3/uL (0-0.05); Absolute Lymphocytes 1.2 10^3/uL (1.2-3.4); Absolute Monocytes 1.3 10^3/uL (0.1-0.6); Absolute Neutrophils 12.8 10^3/uL (1.4-6.5); Hematocrit 25.9 % (39.0-52.0); Hemoglobin 8.4 g/dL (13.0-18.0); Mean Corp Hgb Conc. 32.4 g/dL (33.0-37.0); Mean Corpuscular Volume 89.3 fL (80.0-94.0); Mean Platelet Volume 8.5 fL (7.4-10.4); Nucleated Red Blood Cells % 0 % (-); Platelet Count 828 10^3/uL (130-400); Red Cell Dist. Width 14.4 % (11.5-14.5); White Blood Cell Count 15.8 10^3/uL (4.8-10.8)
[2024-08-27 04:55] LABS: Glucose - Point of Care 128 mg/dl (70-99)
[2024-08-27] MEDS: SODIUM CHLORIDE 3% FOR INHALATION 1 VIAL INH ×4 (08:38→20:53)
[2024-08-27] MEDS: DUONEB 3 ML INH ×4 (08:38→20:53)
[2024-08-27] MEDS: LIDOCAINE 4% PATCH 1 PATCH TOPICAL (09:06)
[2024-08-27] MEDS: SENOKOT 8.6 MG PO (09:07)
[2024-08-27] MEDS: MUCINEX 600 MG PO ×2 (09:07→20:44)
[2024-08-27] MEDS: LOW STRENGTH ASPIRIN 81 MG PO (09:07)
[2024-08-27] MEDS: VISBIOME 1 CAP PO (09:07)
[2024-08-27] MEDS: PLAVIX 75 MG PO (09:07)
[2024-08-27] MEDS: CLARITIN 10 MG PO (09:07)
[2024-08-27] MEDS: NORVASC 10 MG PO (09:07)
[2024-08-27] MEDS: COLACE 200 MG PO (09:08)
[2024-08-27] MEDS: TOPROL XL 12.5 MG PO (09:08)
[2024-08-27] MEDS: LIPITOR 20 MG PO (09:08)
[2024-08-27] MEDS: HEPARIN 5000 UNITS SC ×2 (09:08→20:44)
--- NOTE | 2024-08-27 10:55 | CM ---
Patient from [facility] with Hx CVA with hemiplegia/hemiparesis, Autism. High flow O2. NPO/IVF. Not seen by PT/OT. MDs noting poor prognosis.
Case discussed with Dr Peñaloza; he is requesting psych see this patient for a capacity eval.
[facility]: The for report [phone], fax [phone].
Plan contact patient's sister JUAN Bryant prior to return to SNF.
Plan return to [facility] when medically ready.
[2024-08-27 12:00] LABS: Glucose - Point of Care 138 mg/dl (70-99)
--- NOTE | 2024-08-27 16:13 | W.PN.HOSP.TC ---
Addendum entered and electronically signed by Geronimo Peñaloza MD 08/27/24 16:42:
Consulted GI for evaluation of a Dobhoff Tube/Tube Feeding.
Original Note:
Today's Communication/Plan
-
Continue high flow oxygen and wean as tolerated
Assessment / Plan
Assessment / Plan
Physical Exam
Gen-AAOx3, NAD
HEENT-NC, AT, anicteric, clear oral mm
Neck-supple
CV-reg, no M, +S1/S2
Lungs-bilateral rhonchi
Abd-soft, NT, ND
Ext-no edema
Musculoskeletal-no cyanosis, clubbing
Skin-warm and dry
Neuro-grossly non-focal
Psych-calm, cooperative
Assessment/Plan
Acute Hypoxic Respiratory Failure -Secondary to Severe Pneumonia and Significant Atelectasis. Oxygenation worsened unfortunately. Stable on high flow nasal cannula, 50 L, 100% FiO2, nonrebreather mask. Chest X-Ray suggests pneumonia/aspiration
pneumonia. Previously, Rapid Response was called on 08/14/24 due to hypoxia. Infectious Disease was consulted and recommended no more antibiotics.
Sepsis Secondary to aspiration pneumonia - Sputum culture with usual respiratory juan c. RSV negative, COVID-negative, Influenza negative. Received almost 2 weeks of antibiotics in total, currently off, no need for further antibiotics as per
infectious disease. Most recent fever of 100.4 F was on 08/25/24 evening. Leukocytosis persists. Mild Bilateral Effusions on CT Chest as well as confluent parenchymal opacity within both lower lobes as well as the posterior aspect of the left upper
lobe.
Dysphagia - causing severe aspiration pneumonia. Made n.p.o. on August 22 as per speech therapy recommendation. Suspect ongoing aspiration in the hospital. At this point in time his prognosis remains very poor for recovery. Dr. Glez discussed
potential feeding tube with patient and patient's sister, his sister who is the POA stated she does not want to pursue a PEG tube for the patient. Feeding tube can also cause worsening aspiration and worsening hypoxia. Hold off on Dobbhoff tube
placement as this will also worsen his respiratory status due to ongoing aspiration. Speech therapy input noted, still too high risk to assess given ongoing respiratory failure.
Maintain n.p.o., continue IV fluids.
Hypokalemia - RESOLVED
Hyponatremia - resolved.
CHIQUITA - RESOLVED
- Likely secondary to sepsis as noted above.
- IVFs being given
Atrial fibrillation of unknown type-not on anticoagulation
- Continue current medications including beta-rozina.
- Patient is not currently maintained on OAC - unclear why.
Essential Hypertension
- Stable. Continue current meds. Change once daily metoprolol tartrate changed to succinate.
DM2 with hyperglycemia - Stable. Glucose 128 this morning. Hemoglobin A1c 8.3%. Hold metformin acutely. Moderate resistance aspart scale.
- Follow glucose and cover with SSI as needed.
Acute on chronic anemia -hemoglobin stable at 9.3 today. 12.1 on admission. No evidence of bleeding clinically. Component of hemodilution from IV fluid administration, anemia due to critical illness, etc. consent for potential blood transfusion
obtained by sister on the phone.
ASCVD
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
- Stable. No new neurologic deficits.
- Continue DAPT, statin, etc.
- Follow for any clinical changes.
- PT / OT evaluations.
Anxiety / Depression
- Stable. Continue outpatient medications.
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
GERD
History of bladder cancer
DVT Prophylaxis: Subcutaneous Heparin (will switch to Lovenox)
Code Status: DNR/DNI
-Per Dr. Glez's hospitalist progress note from 08/26/24:
'Dispo -prognosis unfortunately remains poor for recovery. Updated family and POA extensively.
Unfortunately Zack is not improving clinically. He seems to have very little insight as to how ill he really is. I asked him if he wants to make medical decisions for himself or if I should speak with his sister who is the POA. Zack still
wants to make his own decisions. However, I do not believe he has decision-making capacity given his underlying autism, possible developmental delay.
I had a valentín discussion with him today again regarding my recommendation for comfort measures and hospice. I do not believe that he will survive. I did mention this to him as well and he got somewhat tearful, but again asked me to do everything I
can to make him better.
May need to involve ethics committee moving forward.'
-On 08/27/24, I called patient's sister Annette, who is patient's POA, and updated her on patient's current situation and code and intubation status. Annette agreed with patient's DNR/DNI status (which is what patient wants), and she agrees with
current management.
Anticipated Discharge: > 48 hours
Subjective/Interval History
-
Date of Service: August 27, 2024
Patient was seen and examined. He was sleeping, woke and denied any complaints.
Objective Data
-
Labs:
Laboratory Results
08/27/24
03:32
WBC 15.8 H
Hgb 8.4 L
Hct 25.9 L
Plt Count 828 H
Vital Signs:
Vital Signs
Temp Pulse Resp BP Pulse Ox
97.4 F 104 29 118/98 90
08/27/24 15:00 08/27/24 15:00 08/27/24 15:00 08/27/24 14:00 08/27/24 15:00
I&O
08/26/24 08/27/24 08/28/24
06:59 06:59 06:59
Intake Total 1230 / 1230 900 / 900
Output Total 2049 1350 / 1350
Balance -820 / -820 -450 / -450
--- NOTE | 2024-08-27 16:45 | PTCARENOTE ---
Addendum entered by Rena Murphy RN 08/27/24 18:50:
was made aware patient's friends were updated.
Original Note:
RN spoke with patient's friends Zeke and Xander over the phone at the patient's request. Zeke just wanted an update. Xander had more questions about what we were doing for the patient, intubation, his resuscitation status, PEG tube, ect. He also
stated that he was going to ask the patient about all his wishes on these matters. Zack did state he still wanted to be a DNR following getting off the phone with Xander.
Assessment, care and VS as charted.
[2024-08-27] MEDS: THIAMINE INJECTION 100 MG IV (16:59)
[2024-08-27 17:15] LABS: Glucose - Point of Care 179 mg/dl (70-99)
[2024-08-27] MEDS: NOVOLOG FLEXPEN-MODERATE RESISTANCE 1 UNITS SC (17:45)
[2024-08-27] MEDS: DESYREL 25 MG PO (21:03)
--- NOTE | 2024-08-27 21:09 | PTCARENOTE ---
Rec'd pt from previous RN. Pt asking this RN about breathing tubes, 'what is it like?' 'How do you eat with a breathing tube?' etc. This RN explained what a breathing tube is to pt and that you cannot eat while intubated. This RN asked pt why he is
inquiring about this since code status is DNR. Pt states it is something he is 'considering'. CFA contacted. Rec'd pt on high flow 50L 100% with NRB, SaO2 88-90%. Pt wants to talk on the phone to his friends, although this is discouraged by this RN
d/t respiratory status. Pt insists on talking anyway. Tachypneic, RR 30s. Pt frequently ringing call felder to ask this RN more questions about intubation. Repositioning provided. Call felder within reach.
[2024-08-27] MEDS: MORPHINE SULFATE 1 MG IV (21:23)
[2024-08-27] MEDS: TYLENOL 1000 MG PO (23:03)
--- NOTE | 2024-08-27 23:28 | PTCARENOTE ---
This RN attempted to remove NRB to give pt tylenol and SaO2 dropped to 78%. NRB replaced with improvement to 90%.
[2024-08-27 23:34] LABS: Glucose - Point of Care 133 mg/dl (70-99)
[2024-08-28] VITALS (14 sets, daily range): BP systolic 94–143; BP diastolic 48–82
[2024-08-28] MEDS: LR 1000 IV ×2 (05:47→19:01)
[2024-08-28] MEDS: NOVOLOG FLEXPEN-MODERATE RESISTANCE SC ×3 (05:49→18:07)
[2024-08-28 05:57] LABS: Glucose - Point of Care 126 mg/dl (70-99)
[2024-08-28] MEDS: SODIUM CHLORIDE 3% FOR INHALATION 1 VIAL INH ×4 (07:58→20:15)
[2024-08-28] MEDS: DUONEB 3 ML INH ×4 (07:59→20:11)
--- NOTE | 2024-08-28 10:37 | CON.GI ---
Addendum entered and electronically signed by Karissa Marquez MD 08/28/24 14:38:
Elevate head of the bed at all times to prevent aspiration.
Addendum entered and electronically signed by Karissa Marquez MD 08/28/24 14:13:
I saw and examined the patient.
The Resident's note was reviewed and I agree with the note.
Comment: 73-year-old male with history of CVA, A-fib, diabetes, presented with vomiting and cough from the senior living, chest x-ray and chest CT showed possible aspiration pneumonia and also had hypoxic respiratory failure needing high flow oxygen
in the IMU.
He is currently on antibiotics for aspiration pneumonia and continues to require high flow oxygen. GI consult was called in for Dobbhoff tube placement for medication.
-Dobbhoff tube placed and patient tolerated it well.
Confirmed position with AXR. Hiatal hernia noted on prior CT scan.
Okay to use the Dobbhoff tube for medication only.
On discussing with hospitalist, nutrition team, high risk of aspiration as patient with his high flow oxygen needs and also moderate hiatel hernia.
Touch situation and as per pulmonary ,if further respiratory deterioration, option would be comfort leasures only.
Hold off on tube feeds at this time as it poses more risk of aspiration .
Will sign off,please call back as needed.
Original Note:
Consultation
-
Date/Time Consultation Requested: 08/27/2024
Date/Time Consultation Performed: 08/28/2024
Requesting Provider: Geronimo Paulino MD
Performing Provider: Tasneem Adams MD
Reason for Consultation: Assessment for Dobhoff placement
Medical History
Chief Complaint / HPI
Chief Complaint: Dysphagia
History of Present Illness:
The patient is a 73-year-old male with a past medical history of prior CVA, hypertension, type 2 diabetes mellitus who presented to ER for an evaluation of left sided chest pain and 1 episode of vomiting on 08/13/2024 from senior living. At
admission, his chest x-ray showed positive infiltrate c/w pneumonia possibly secondary to aspiration to be given history of vomiting and having CVA complicated with dysphagia, additionally his creatinine level was found to be elevated to 1.5
(baseline 1.2). Following, the patient was admitted to ICU due to developing hypoxic failure due severe pneumonia and having significant atelectasis. Following he was obtained a chest CT which showed bilateral lower lobes atelectasis and possible
pneumonia and moderate hiatal hernia. Patient has been on different antibiotic courses since admission ( 6 days of IV vancomycin, 13 days of meropenem, and 9 days of doxycycline). Recent chest X ray shows improvement with pulmonary infiltration but
he still requires high flow nasal cannula oxygen supplement ( 50 L, 100% FiO2, nonrebreather mask) The GI team was consulted for a Dobbhoff placement to be given his medication through it.
Past Medical History
Past Medical History: Arrhythmias (A-fib ), Cancer (bladder cancer), HTN, Hypercholesterolemia, NIDDM and Other (ASCVD, DVT, Left Hemiplegia, vascular dementia, GERD, autism, anxiety and depression, chronic pain)
Past Surgical History: Other (TURBT)
Social History
Tobacco: Non-Smoker
Alcohol: None
Drug: None
Living: Long Term
Family History
Family History: Reviewed & Not Pertinent
Allergies / Home Medications
Allergy/AdvReac Type Severity Reaction Status Date / Time
Penicillins Allergy per NH Verified 08/14/24 18:47
transfer
sheet
theophylline Allergy per NH Verified 08/14/24 18:47
transfer
sheet
�Medication �Instructions �Recorded
acetaminophen 325 mg tablet 650 mg PO Q6H PRN mild pain, fever 05/29/22
(Tylenol) > 100.5
aspirin 81 mg capsule 81 mg PO DAILY Blood clot 05/29/22
prevention/tx
atorvastatin 20 mg tablet 20 mg PO DAILY High cholesterol 05/29/22
clopidogrel 75 mg tablet 75 mg PO DAILY Blood clot 05/29/22
prevention/tx
docusate sodium 100 mg capsule 200 mg PO DAILY Constipation 05/29/22
(Colace)
lidocaine 4 % topical patch 1 patch topical DAILY Pain 05/29/22
(Lidocaine Pain Relief)
loratadine 10 mg capsule 10 mg PO DAILY Allergies 05/29/22
metoprolol tartrate 25 mg tablet 12.5 mg PO DAILY Blood pressure 05/29/22
psyllium husk (aspartame) 3.4 gram 1 packet PO DAILY 05/29/22
oral powder packet (Metamucil
Fiber Singles)
sennosides 8.6 mg tablet 8.6 mg PO DAILY Constipation 05/29/22
trazodone 50 mg tablet 25 mg PO HS Mental Health/Anxiety 05/29/22
magnesium hydroxide 400 mg/5 mL 30 ml PO HSPRN PRN No BM x 3 days 09/20/22
oral suspension (Milk of Magnesia)
bisacodyl 10 mg rectal suppository 10 mg WI DAILY PRN IF NO BM AFTER 02/22/23
(Dulcolax (bisacodyl)) MOM
amlodipine 10 mg tablet (Norvasc) 10 mg PO DAILY 07/14/23
calcium carbonate (Tums) 200 mg PO QID PRN indigestion 07/14/23
cholecalciferol (vitamin D3) 25 25 mcg PO DAILY 08/13/24
mcg (1,000 unit) tablet
metformin 500 mg tablet 1,000 mg PO DAILY 08/13/24
metformin 500 mg tablet 500 mg PO QPM 08/13/24
Review of Systems
-
History Source: Patient, Transfer Record and Other (medical records )
Constitutional: Reports Fatigue and Other (respiratory distress)
EENT: Reports No Symptoms and Other
Respiratory: Reports Cough and Trouble Breathing
Cardiac: Reports No Symptoms
Abdomen/GI: Reports No Symptoms
: Reports No Symptoms
Neurological: Reports Other (able to follow 2 words commands. Has autism and CVA at baseline )
Endocrine: Reports No Symptoms
Vital Signs
Temp Pulse Resp BP Pulse Ox
98.1 F 106 35 143/72 91
08/28/24 07:54 08/28/24 10:00 08/28/24 10:00 08/28/24 10:00 08/28/24 10:11
Physical Exam
Exam
General: Well Developed, Well Nourished and Respiratory Distress
HEENT: Normocephalic and Anicteric
Respiratory: Rales
Cardiac: S1/S2 and Regular Rhythm
GI: Soft, Non Tender and Non Distended
Musculoskeletal: No Clubbing and No Edema
Skin: Warm
Neuro: Awake and Alert
Results
WBC 15.8 10^3/uL (4.8-10.8) H 08/27/24 03:32
Hgb 8.4 g/dL (13.0-18.0) L 08/27/24 03:32
Hct 25.9 % (39.0-52.0) L 08/27/24 03:32
MCV 89.3 fL (80.0-94.0) 08/27/24 03:32
Plt Count 828 10^3/uL (130-400) H 08/27/24 03:32
Absolute Neuts (auto) 12.8 10^3/uL (1.4-6.5) H 08/27/24 03:32
Sodium 135 mmol/L (135-145) 08/26/24 04:37
Potassium 4.7 mmol/L (3.5-5.1) 08/26/24 04:37
Chloride 104 mmol/L (98-107) 08/26/24 04:37
Carbon Dioxide 21 mmol/L (22-30) L 08/26/24 04:37
BUN 15 mg/dl (9-20) 08/26/24 04:37
Creatinine 0.8 mg/dL (0.7-1.3) 08/26/24 04:37
Calcium 8.9 mg/dl (8.4-10.2) 08/26/24 04:37
Total Bilirubin 1.1 mg/dl (0.2-1.3) 08/14/24 18:30
AST 27 U/L (17-59) 08/14/24 18:30
ALT 23 U/L (0-50) 08/14/24 18:30
Alkaline Phosphatase 109 U/L (38-126) 08/14/24 18:30
Diagnostic Image Results:
Abd X ray
FINDINGS/IMPRESSION:
The radiopaque tip of the enteric tube projects over the stomach. Bilateral pulmonary parenchymal opacities are redemonstrated.
Abd CT 10/31/23
IMPRESSION:
1. Underdistended bladder, somewhat limiting evaluation. Previously seen 2 cm soft tissue lesion along the lateral sidewall no longer present compatible with interval resection. No new eccentric or polypoid soft tissue lesions appreciated.
Moderate prostamegaly with projection of median lobe into the bladder base.
2. No evidence for metastatic disease/lymphadenopathy within the abdomen or pelvis.
3. No hydronephrosis or nephrolithiasis. 10 mm hyperdense cyst within the midpole of the left kidney.
4. Large hiatal hernia.
5. Hepatic steatosis.
6. Severe degenerative disc disease within the lumbar spine at L3-4, L4-5, and L5-S1.
Prior GI Procedures: No known EGD or colonoscopy
EGD:
Colonoscopy:
Assessment / Plan
-
Assessment:
Impression: Ms Landeros is a 73-year-old male with a past medical history of prior CVA complicated with dysphagia, hypertension, type 2 diabetes mellitus who admitted to the hospital with a diagnosis of pneumonia possibly secondary to aspiration to be
given history of vomiting before admission and having CVA complicated with dysphagia. Following, the patient was admitted to ICU due to developing hypoxic failure. His chest CT was obtained and showed bilateral lower lobes atelectasis and possible
pneumonia and moderate hiatal hernia. Patient has been on different antibiotic courses since admission ( 6 days of IV vancomycin, 13 days of meropenem, and 9 days of doxycycline). Patient was transferred to IMU and he still requires high flow nasal
cannula oxygen supplement The GI team was consulted by primary team for a Dobbhoff placement to be given his medication through it.
Problem list
Acute Hypoxic Respiratory Failure secondary to Severe Pneumonia and Significant Atelectasis
Left hemiparesis (CVA) with dysphagia
Hypertension
Type 2 diabetes (NIDDM)
Atrial fibrillation (on anticoagulation)
Anxiety/depression
History of autism
GERD
History of bladder cancer status post TURBT
#Acute Hypoxic Respiratory Failure secondary to Severe Pneumonia and Significant Atelectasis
-Likely due aspiration
-Stable on high flow nasal cannula, 50 L
-Negative for RSV, COVID and Influenza
-On antibiotics, ID on board
#Left hemiparesis (CVA) with dysphagia
-POA of the patient is his sister, Annette, is not willing to pursue a PEG tube for the patient
-GI team consulted for a Dobbhoff placement to be given medicine through it for a temporary period. PEG placement is not planned for now due his sister willing not to pursue it and patient`s respiratory distress. It can be discussed with his sister
based on patient`s progress.
-Dobbhoff was placed by GI team this morning without any complication. Control Abd-Xray confirmed that it was positioned correctly.
-
-
Thank you for consultation and allowing me to participate in the patient's care. Please call the online advertising analyst GI physician during the after hours with any questions or concerns.
[2024-08-28] MEDS: COLACE PO (11:07)
[2024-08-28] MEDS: MUCINEX PO (11:08)
[2024-08-28] MEDS: TOPROL XL PO (11:08)
[2024-08-28] MEDS: VISBIOME PO (11:08)
--- NOTE | 2024-08-28 11:34 | W.PN.HOSP.TC ---
Addendum entered and electronically signed by Geronimo Peñaloza MD 08/28/24 13:22:
I discussed with GI -- if and when patient's pulmonary status recovers (patient's oxygenation improves to the point where he can saturate oxygen well on nasal cannula oxygen), then okay to start tube feeds at 10cc/hr, and see first what patient does
in the first 24 hours; then could slowly advance as tolerated by 10cc every 12 hours as long as no residuals noted. If there are residuals, then there is risk of aspiration.
So for now, only medications through Dobhoff Tube, but no tube feeding.
Addendum entered and electronically signed by Geronimo Peñaloza MD 08/28/24 12:53:
Patient's sister Annette does not want medical team talking with patient's friends.
Original Note:
Today's Communication/Plan
-
Dobhoff Tube Feeding evaluation -- patient's needs a Dobhoff Tube to get his medications -- appreciate GI evaluation
Patient continues to demonstrate that he does not have medical decision-making capacity for himself, I spoke over the phone with his sister today who agrees with current management and DNR/DNI status
Assessment / Plan
Assessment / Plan
Physical Exam
Gen-AAOx3, NAD
HEENT-NC, AT, anicteric, clear oral mm
Neck-supple
CV-reg, no M, +S1/S2
Lungs-bilateral rhonchi
Abd-soft, NT, ND
Ext-no edema
Musculoskeletal-no cyanosis, clubbing
Skin-warm and dry
Neuro-grossly non-focal.
Psych-calm, cooperative. Poor insight and understanding of current medical condition.
Assessment/Plan
Acute Hypoxic Respiratory Failure -Secondary to Severe Pneumonia and Significant Atelectasis. Oxygenation worsened unfortunately. Stable on high flow nasal cannula, 50 L, 100% FiO2, nonrebreather mask. Chest X-Ray suggests pneumonia/aspiration
pneumonia. Previously, Rapid Response was called on 08/14/24 due to hypoxia. Infectious Disease was consulted and recommended no more antibiotics.
Sepsis Secondary to aspiration pneumonia - Sputum culture with usual respiratory juan c. RSV negative, COVID-negative, Influenza negative. Received almost 2 weeks of antibiotics in total, currently off, no need for further antibiotics as per
infectious disease. Most recent fever of 100.4 F was on 08/25/24 evening. Leukocytosis persists. Mild Bilateral Effusions on CT Chest as well as confluent parenchymal opacity within both lower lobes as well as the posterior aspect of the left upper
lobe.
Dysphagia - causing severe aspiration pneumonia. Made n.p.o. on August 22, 2024 as per speech therapy recommendation. Suspect ongoing aspiration in the hospital. At this point in time, his prognosis remains very poor for recovery. Dr. Glez
discussed potential PEG feeding tube with patient and patient's sister, his sister who is the POA stated she does not want to pursue a PEG tube for the patient. I discussed case with gastroenterology who mentioned Dobhoff tube feeding can be
considered, placed GI consult for Dobhoff Tube evaluation; GI team will also discuss this with patient's sister. Speech therapy input noted. Maintain n.p.o., continue IV fluids.
Hypokalemia - RESOLVED
Hyponatremia - resolved.
CHIQUITA - RESOLVED
- Likely secondary to sepsis as noted above.
- IVFs being given
Atrial fibrillation of unknown type-not on anticoagulation
- Continue current medications, as able, including beta-rozina.
- Patient is not currently maintained on OAC - unclear why.
Essential Hypertension
- Stable. Continue current medications. Change once daily metoprolol tartrate changed to succinate.
Type 2 Diabetes Mellitus with hyperglycemia - Stable. Glucose 128 this morning. Hemoglobin A1c 8.3%. Hold metformin acutely. Moderate resistance aspart scale.
- Follow glucose and cover with SSI as needed.
Acute on chronic anemia -hemoglobin stable at 9.3 today. 12.1 on admission. No evidence of bleeding clinically. Component of hemodilution from IV fluid administration, anemia due to critical illness, etc. consent for potential blood transfusion
obtained by sister on the phone.
ASCVD
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
- Stable. No new neurologic deficits.
- Continue DAPT, statin, etc. as able
- Follow for any clinical changes.
- PT / OT evaluations.
Anxiety / Depression
- Stable. Continue outpatient medications.
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
GERD
History of bladder cancer
DVT Prophylaxis: Subcutaneous Heparin (will switch to Lovenox)
Code Status: DNR/DNI
-Per Dr. Glez's hospitalist progress note from 08/26/24:
'Dispo -prognosis unfortunately remains poor for recovery. Updated family and POA extensively.
Unfortunately Zack is not improving clinically. He seems to have very little insight as to how ill he really is. I asked him if he wants to make medical decisions for himself or if I should speak with his sister who is the POA. Zack still
wants to make his own decisions. However, I do not believe he has decision-making capacity given his underlying autism, possible developmental delay.
I had a valentín discussion with him today again regarding my recommendation for comfort measures and hospice. I do not believe that he will survive. I did mention this to him as well and he got somewhat tearful, but again asked me to do everything I
can to make him better.
May need to involve ethics committee moving forward.'
-On 08/27/24, I called patient's sister Annette, who is patient's POA, and updated her on patient's current situation and code and intubation status. Annette agreed with patient's DNR/DNI status (which is what patient wants), and she agrees with
current management.
-On 08/28/24, it was noted again that patient does not have medical decision capacity for himself. On 08/28/24, I called patient's sister Annette again, who confirmed that patient is both a DNR and DNI status and she agreed with current medical
management.
Anticipated Discharge: > 48 hours
Subjective/Interval History
-
Date of Service: August 28, 2024
Patient was seen and examined. He denied any new symptoms.
Objective Data
-
Vital Signs:
Vital Signs
Temp Pulse Resp BP Pulse Ox
98.1 F 94 22 143/72 94
08/28/24 07:54 08/28/24 11:00 08/28/24 11:00 08/28/24 10:00 08/28/24 11:00
I&O
08/27/24 08/28/24 08/29/24
06:59 06:59 06:59
Intake Total 900 / 900 50 / 50
Output Total 1350 / 1350 650 / 650
Balance -450 / -450 -600 / -600
--- NOTE | 2024-08-28 11:38 | CM ---
Call received from Fiona at the [facility] requesting update. BERNARDO provided update to Fiona: Pt with dysphagia and severe aspiration pneumonia, NPO as of 08/22/2024 with poor prognosis for recovery.
Pt is DNR/DNi; watch for hospice order.
[2024-08-28 12:11] LABS: Glucose - Point of Care 141 mg/dl (70-99)
[2024-08-28] MEDS: TYLENOL PO (12:32)
[2024-08-28] MEDS: THIAMINE INJECTION 100 MG IV (12:43)
[2024-08-28] MEDS: HEPARIN 5000 UNITS SC ×2 (12:44→19:33)
[2024-08-28] MEDS: LOW STRENGTH ASPIRIN 81 MG PO (12:44)
[2024-08-28] MEDS: NORVASC 10 MG PO (12:45)
[2024-08-28] MEDS: PLAVIX 75 MG PO (12:45)
[2024-08-28] MEDS: LIDOCAINE 4% PATCH 1 PATCH TOPICAL (12:45)
[2024-08-28] MEDS: LIPITOR 20 MG PO (12:45)
[2024-08-28] MEDS: CLARITIN 10 MG PO (12:49)
[2024-08-28] MEDS: SENOKOT 8.6 MG PO (12:49)
--- NOTE | 2024-08-28 14:00 | PTCARENOTE ---
DHT in R nare. Pt tolerating well. Pt remains on HFNC, SPO2 maintaining. Pt asking numerous questions about care (and frequently the same ones). All answered per RN ability and attempted to educate patient. Pt forgetful and needs reinforcement.
Assessment, care and VS as charted.
[2024-08-28] MEDS: COLACE LIQUID 200 MG TUBE (15:02)
[2024-08-28] MEDS: ROBITUSSIN 200 MG TUBE ×3 (15:02→23:06)
[2024-08-28] MEDS: TYLENOL 1000 MG TUBE ×2 (15:02→21:16)
[2024-08-28 17:56] LABS: Glucose - Point of Care 134 mg/dl (70-99)
[2024-08-28] MEDS: LOPRESSOR 6.25 MG TUBE (19:33)
[2024-08-28] MEDS: DESYREL 25 MG TUBE (21:16)
[2024-08-29] VITALS (13 sets, daily range): BP systolic 96–134; BP diastolic 59–103; BMI 26.1
[2024-08-29 01:06] LABS: Glucose - Point of Care 124 mg/dl (70-99)
[2024-08-29] MEDS: NOVOLOG FLEXPEN-MODERATE RESISTANCE SC ×3 (01:08→12:13)
--- NOTE | 2024-08-29 01:29 | PTCARENOTE ---
DHT maintained in R nare. Meds crushed through tube per MD orders. Insulin held d/t admin parameters. Pt rings call felder frequently, does not show understanding of medical devices, education attempted. Pt with one episode of desat to 80% while
talking on the phone, improved with NRB. Pt c/o mild pain in L hand, unable to describe, repositioning provided, scheduled tylenol given per SEP. Call felder within reach.
[2024-08-29] MEDS: ROBITUSSIN 200 MG TUBE ×5 (04:22→20:42)
--- NOTE | 2024-08-29 04:28 | PTCARENOTE ---
This RN attempted to give pt full bed bath with linen change, explained importance of hygiene care. Pt refused at this time. States that he just wants to sleep right now.
[2024-08-29 04:37] LABS: % Basophils 0.6 % (0-2); % Eosinophils 4.6 % (0-6); % Immature Granulocytes 0.7 % (0-0.5); % Neutrophils 74.1 % (42.2-75.2); Absolute Basophils 0.1 10^3/uL (0-0.2); Absolute Eosinophils 0.6 10^3/uL (0-0.7); Absolute Immature Granulocytes 0.1 10^3/uL (0-0.05); Absolute Lymphocytes 1.5 10^3/uL (1.2-3.4); Absolute Monocytes 1.2 10^3/uL (0.1-0.6); Absolute Neutrophils 9.9 10^3/uL (1.4-6.5); Hematocrit 26.3 % (39.0-52.0); Hemoglobin 8.8 g/dL (13.0-18.0); Mean Corp Hgb Conc. 33.5 g/dL (33.0-37.0); Mean Corpuscular Hgb 29.6 pg (27.0-31.0); Mean Corpuscular Volume 88.6 fL (80.0-94.0); Mean Platelet Volume 8.2 fL (7.4-10.4); Nucleated Red Blood Cells % 0 % (-); Platelet Count 837 10^3/uL (130-400); Red Blood Cell Count 2.97 10^6/uL (4.70-6.10); Red Cell Dist. Width 14.2 % (11.5-14.5); White Blood Cell Count 13.3 10^3/uL (4.8-10.8)
[2024-08-29 05:00] LABS: Blood Urea Nitrogen 15 mg/dl (9-20); Calcium 8.4 mg/dl (8.4-10.2); Carbon Dioxide 21 mmol/L (22-30); Chloride 108 mmol/L (98-107); Estimated Creatinine Clearance 77 ml/min; Glucose 123 mg/dl (70-99); Magnesium 2.2 mg/dl (1.6-2.3); Potassium 4.1 mmol/L (3.5-5.1); Sodium 137 mmol/L (135-145); eGFR > 60.00
[2024-08-29] MEDS: TYLENOL 1000 MG TUBE ×3 (05:10→20:53)
[2024-08-29 05:27] LABS: Glucose - Point of Care 125 mg/dl (70-99)
[2024-08-29] MEDS: SODIUM CHLORIDE 3% FOR INHALATION 1 VIAL INH ×2 (07:22→11:07)
[2024-08-29] MEDS: DUONEB 3 ML INH ×4 (07:22→19:42)
[2024-08-29] MEDS: LR 1000 IV (08:08)
[2024-08-29] MEDS: NORVASC 10 MG TUBE (09:27)
[2024-08-29] MEDS: COLACE LIQUID 200 MG TUBE (09:27)
[2024-08-29] MEDS: LIPITOR 20 MG TUBE (09:28)
[2024-08-29] MEDS: PLAVIX 75 MG TUBE (09:28)
[2024-08-29] MEDS: SENOKOT 8.6 MG TUBE (09:28)
[2024-08-29] MEDS: CLARITIN 10 MG TUBE (09:28)
[2024-08-29] MEDS: LOW STRENGTH ASPIRIN 81 MG TUBE (09:28)
[2024-08-29] MEDS: HEPARIN 5000 UNITS SC (09:29)
[2024-08-29] MEDS: THIAMINE INJECTION 100 MG IV (09:29)
[2024-08-29] MEDS: LIDOCAINE 4% PATCH 1 PATCH TOPICAL (09:30)
[2024-08-29] MEDS: LOPRESSOR 6.25 MG TUBE ×2 (09:37→20:42)
[2024-08-29] MEDS: VISBIOME 1 CAP TUBE (09:37)
[2024-08-29 12:23] LABS: Glucose - Point of Care 138 mg/dl (70-99)
--- NOTE | 2024-08-29 12:49 | W.PN.PUL3 ---
Today's Communication / Plan
-
Reviewed care plan thus far, not improved on HFNC, now on max settings
Recheck proBNP, procal
Start IV steroids
Not much more can be offered if patient is not improving
GOC discussions would be appropriate at this time
Assessment
-
73-year-old man with past medical history noted. care home resident. Admitted to the hospital after an episode of vomiting and subsequent hypoxemia and chest discomfort. We were consulted on 08/15/2024 for evaluation.
Acute hypoxemic respiratory failure requiring high flow oxygen
ABG 08/14/2024: 7.48-respiratory alkalosis acute
Pneumonia: Suspect aspiration after emesis episode.
Chest x-ray: Reviewed, showed bibasilar infiltrates.
Negative COVID/negative syncytial virus/negative influenza
MRSA screening negative
CT chest 08/14/2024:Reviewed, showed no evidence for central pulmonary embolism. Bibasilar confluent parenchymal opacity in both lower lobes and left upper lobe. Atelectasis versus pneumonia. Small right pleural effusion, minimal left pleural
effusion. Moderate hiatal hernia. Fatty liver infiltration.
Sepsis syndrome due to above.
Moderately increased proBNP 1590/negative troponin
Leukocytosis
Acute kidney injury - improving
Conditions present prior admission:
Left hemiparesis status post CVA
Hypertension
Type 2 diabetes
Atrial fibrillation of unknown type-not on anticoagulation
Anxiety/depression
History of autism
GERD
History of bladder cancer
Plan
Asked for re-eval 08/29/24
At this time, patient continues to require high flow oxygen and nonrebreather. Desaturation into the low 70-80s at times
Now maintained on max settings--100% on 50LPM
There has been little to no improvement over the past few days since transfer from ICU
Chest x-ray 08/22 with worsening bilateral infiltrates, poor inspiratory effort
Repeat CXR 08/26 improved but not resolved
Aspiration still suspected, completed about 3-4 days of abx (MRP/Doxy), stopped 08/26
Continue with airway clearance, positional therapy, oxygen therapy
Patient remains n.p.o., high aspiration risk, DHT in place
Speech following but limited on assessments due to respirator failure at current condition
Last eval by speech in 2021: +mild oral dysphagia, likely chronic vs. [id number], compounded by residual L-sided weakness which impacts self feeding
Sister who is power of tax attorney does not want any feeding tube
This is likely not to improve
Check proBNP, not maintained on diuresis
Check procal again to reassess
Sputum culture is not obtainable
Can start IV steroids as his hypoxemia is ongoing and profound
CVA with residual left hemiparesis, stable
DVT prophylaxis with heparin
Patient is DNR--recommend continued GOC discussions
Family Discussions
Sirisha - Prognosis guarded; hospice was discussed with the patient by Dr. Glez as well as Dr. Munson. Patient states to me that he is not interested in hospice. This will be an ongoing discussion
I brought it up again today. Patient asked me to contact his friend Xander. I spoke with Xander as well. Xander was asking questions to suggest poor insight into the process such as do have him on oxygen, heavy given him any antibiotics.
I also contacted his Sister Annette power of tax attorney. Reviewed his clinical course over the last 2 days, increased oxygen requirement, worsening chest x-ray. Also reviewed the fact that patient is currently n.p.o.
Diagnostic Data
CXR 08/26/24- Overall, improvement in inflation of both lungs compared to most recent radiograph.
08/22/24- Extremely limited study with low lung volumes and patient's chin obscuring the medial lung apices.
INCREASED opacification bilaterally, as noted above, markedly limited, possibly at least in part representing layering bilateral pleural effusions. Atelectasis and/or pneumonia also possible.
CT CHEST 08/14/24- No evidence for central pulmonary embolism. Confluent parenchymal opacity within both lower lobes as well as the posterior aspect of the left upper lobe. Morphologic appearance is most suggestive of atelectasis. Underlying
pneumonia difficult to completely exclude. Small right pleural effusion and minimal left pleural effusion. Moderate hiatal hernia/partially intrathoracic stomach, with prominent surrounding fat, extending into the medial aspect of both hemithoraces.
Fatty infiltration of the liver.
ECHO 08/15/24- Normal left ventricular size, wall thickness and systolic function. No regional wall motion abnormalities are seen. LV ejection fraction is 70% by Cavazos's method of discs. Normal diastolic function. Normal right ventricular size and
function. Aortic sclerosis without stenosis. Mild to moderate aortic regurgitation. No prior study for comparison
PFT
Reports and relevant images were personally reviewed.
-----
Total time spent on this encounter _61__ minutes which includes review of history, physical exam, medications, laboratory data, personal review of imaging, extensive review of outpatient records, and discussions with care team.
Subjective Data
-
Date of Service:
Date of Service: August 29, 2024
Chief Complaint: Pulmonary Follow Up (Pneumonia/hypoxemic respiratory failure)
Subjective:
Asked to re-eval for patient, remains on HFNC
Confused, speaking on the phone to no one
No other ROS obtained from patient
Objective Data
Data Reviewed
Vital Signs / I&O / Oxygen:
Vital Signs
Temp Pulse Resp BP Pulse Ox
97.5 F 86 22 115/65 92
08/29/24 11:20 08/29/24 11:11 08/29/24 11:11 08/29/24 10:00 08/29/24 11:11
Intake and Output
08/28/24 08/29/24 08/30/24
06:59 06:59 06:59
Intake Total 50 / 50 1920 / 1920
Output Total 650 / 650 700 / 700
Balance -600 / -600 1220 / 1220
SaO2 92
Nasal Cannula flow liters per 50
minute
Physical Exam
General: Comfortable (Conversing) and Other (NAD)
HEENT: Normocephalic, Anicteric and Other (edentulous)
Cardiovascular: S1-S2, Regular Rhythm, Murmur (n) and Peripheral Edema (negative)
Respiratory: Wheeze (n), Crackles (few), Rhonchi (n), Non-Labored Respirations, Stridor (n) and Other (Poor inspiratory effort, decreased)
GI: Soft, Non Distended, Non Tender and Normal Bowel Sounds
Neurology: Awake, Alert, Other (confused, not follow commands/answering at times) and Other (Left hemiplegia)
Skin: Cyanosis (n) and Bruising (Few)
Labs/Micro/Reports
Lab Data
08/29/24 04:19
08/29/24 04:19
--- NOTE | 2024-08-29 13:28 | W.PN.UPDATE ---
Update Note
Progress Note Update
Pt is 73 yo male seen for capacity assessment. Reviewed case with nursing staff, case mgt, hospitalist. Pt dx with respiratory failure, ongoing aspiration, poor prognosis, on high-flow oxygen for approx 2 weeks, npo due to aspiration risk.
Dobhoff tube placed yesterday; pt has not been able to get nutrition po. Pt seen, awakened easily, able to answer questions. Pt repeatedly states he wants 'everything done to get me better', 'I want to get better.' Pt c/o he is very thirsty/
'dying of thirst'. Attempted to discuss his problem with aspiration; pt did not seem to understand. When invited to ask questions, pt asked 'when will I get better?' Pt has no specific requests for any particular intervention. Sister is
reportedly POA, and is not in favor of aggressive measures, such as a PEG tube, reportedly wants pt continued on his established DNR/DNI code status. Pt able to answer basic orientation questions, where he resides, current location, month, was off
a little on the day/date. Pt able to give some history. He was not able to demonstrate full understanding of his condition, or to manipulate the relevant information rationally; only able to repeat his general wish to 'get better.'
PMH: ASCVD, Left Hemiparesis s/p CVA, Hypertension, DM-II, A fib, GERD, hx of bladder cancer
Psych Hx: noted hx of Autism spectrum/ developmental delay. States he tried a med a long time ago for anxiety- did not like it, made him tired. Rx Trazodone 25 mg HS for insomnia
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
MSE: initially sleeping, awakened easily, then alert, mostly oriented. Speech coherent, thought goal-directed. No signs of psychosis. Mood/affect stable/appropriate. Insight appears limited
Imp: Pt appears to have limited/partial capacity, with the ability to clearly state his wish to 'get better' and have everything done to help him. He does not demonstrate full capacity to understand or manipulate the information on his current
medical condition and poor prognosis- appears to have limited ability to accept or cope with this.
Rec: discussed with Dr Peñaloza, would continue to involve pt's sister, who is POA, in treatment decisions. Would consider an Ethics Committee review
Would continue to provide education/support regarding recommendation for comfort care/Hospice
I do not find any condition that requires psychiatric intervention. Psychiatry will sign off. Please re-consult for any new concerns
[2024-08-29 15:10] LABS: Procalcitonin 0.34 ng/ml (0.0-0.25)
[2024-08-29] MEDS: DECADRON 4 MG IV (15:38)
[2024-08-29 16:10] LABS: NT-proBNP 185 pg/ml
[2024-08-29] MEDS: LOVENOX 40 MG SC (17:11)
[2024-08-29] MEDS: NOVOLOG FLEXPEN-MODERATE RESISTANCE 1 UNITS SC (17:38)
[2024-08-29 17:48] LABS: Glucose - Point of Care 173 mg/dl (70-99)
--- NOTE | 2024-08-29 17:50 | W.PN.HOSP.TC ---
Today's Communication/Plan
-
Continue high flow oxygen, wean as tolerated, IV steroids, appreciate Pulmonary and Psychiatry
Assessment / Plan
Assessment / Plan
Physical Exam
Gen-AAOx3, NAD
HEENT-NC, AT, anicteric, clear oral mm
Neck-supple
CV-reg, no M, +S1/S2
Lungs-bilateral rhonchi
Abd-soft, NT, ND
Ext-no edema
Musculoskeletal-no cyanosis
Skin-warm and dry
Neuro-grossly non-focal.
Psych-calm, cooperative. Poor insight and understanding of current medical condition.
Assessment/Plan
Acute Hypoxic Respiratory Failure -Secondary to Severe Pneumonia and Significant Atelectasis. Oxygenation worsened unfortunately. Stable on high flow nasal cannula, 50 L, 100% FiO2, nonrebreather mask. Chest X-Ray suggests pneumonia/aspiration
pneumonia. Previously, Rapid Response was called on 08/14/24 due to hypoxia. Infectious Disease was consulted and recommended no more antibiotics. Re-consulted pulmonary: IV steroids started, check procal and proBNP.
Sepsis Secondary to aspiration pneumonia - Sputum culture with usual respiratory juan c. RSV negative, COVID-negative, Influenza negative. Received almost 2 weeks of antibiotics in total, currently off, no need for further antibiotics as per
infectious disease. Most recent fever of 100.4 F was on 08/25/24 evening. Leukocytosis persists. Mild Bilateral Effusions on CT Chest as well as confluent parenchymal opacity within both lower lobes as well as the posterior aspect of the left upper
lobe.
Dysphagia - causing severe aspiration pneumonia. Made n.p.o. on August 22, 2024 as per speech therapy recommendation. Suspect ongoing aspiration in the hospital. At this point in time, his prognosis remains very poor for recovery. Dr. Glez
discussed potential PEG feeding tube with patient and patient's sister, his sister who is the POA stated she does not want to pursue a PEG tube for the patient. I discussed case with gastroenterology who mentioned Dobhoff tube feeding can be
considered, placed GI consult for Dobhoff Tube evaluation; GI team will also discuss this with patient's sister. Speech therapy input noted. Maintain n.p.o., continue IV fluids.
Hypokalemia - RESOLVED
Hyponatremia - resolved.
CHIQUITA - RESOLVED
- Likely secondary to sepsis as noted above.
- IVFs being given
Atrial fibrillation of unknown type-not on anticoagulation
- Continue current medications, as able, including beta-rozina.
- Patient is not currently maintained on OAC - unclear why.
Essential Hypertension
- Stable. Continue current medications. Change once daily metoprolol tartrate changed to succinate.
Type 2 Diabetes Mellitus with hyperglycemia - Stable. Glucose 128 this morning. Hemoglobin A1c 8.3%. Hold metformin acutely. Moderate resistance aspart scale.
- Follow glucose and cover with SSI as needed.
Acute on chronic anemia -hemoglobin stable at 9.3 today. 12.1 on admission. No evidence of bleeding clinically. Component of hemodilution from IV fluid administration, anemia due to critical illness, etc. consent for potential blood transfusion
obtained by sister on the phone.
ASCVD
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
- Stable. No new neurologic deficits.
- Continue DAPT, statin, etc. as able
- Follow for any clinical changes.
- PT / OT evaluations.
Anxiety / Depression
- Stable. Continue outpatient medications.
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
GERD
History of bladder cancer
DVT Prophylaxis: Lovenox
Code Status: DNR/DNI
-Per Dr. Glez's hospitalist progress note from 08/26/24:
'Dispo -prognosis unfortunately remains poor for recovery. Updated family and POA extensively.
Unfortunately Zack is not improving clinically. He seems to have very little insight as to how ill he really is. I asked him if he wants to make medical decisions for himself or if I should speak with his sister who is the POA. Zack still
wants to make his own decisions. However, I do not believe he has decision-making capacity given his underlying autism, possible developmental delay.
I had a valentín discussion with him today again regarding my recommendation for comfort measures and hospice. I do not believe that he will survive. I did mention this to him as well and he got somewhat tearful, but again asked me to do everything I
can to make him better.
May need to involve ethics committee moving forward.'
-On 08/27/24, I called patient's sister Annette, who is patient's POA, and updated her on patient's current situation and code and intubation status. Annette agreed with patient's DNR/DNI status (which is what patient wants), and she agrees with
current management.
-On 08/28/24, it was noted again that patient does not have medical decision capacity for himself. On 08/28/24, I called patient's sister Annette again, who confirmed that patient is both a DNR and DNI status and she agreed with current medical
management.
-On 08/29/24, it was noted again that patient does not have a full medical decision capacity for himself and lacks insight. I consulted psychiatry who mentioned that patient does not demonstrate full capacity to understand or manipulate the
information on his current medical condition and poor prognosis, appears to have limited ability to accept or cope with this, and it was recommended to continue to involve patient's sister, who is POA, in treatment decisions. On 08/29/24, I called
patient's sister Annette again, she said that if there is no meaningful recovery, then no tube feeds (I explained to her the risks of aspiration) or TPN (I explained to her the complications of this) at this time.
Anticipated Discharge: > 48 hours
Subjective/Interval History
-
Date of Service: August 29, 2024
Patient was seen and examined. No new events or symptoms, he is still needing high flow oxygen.
Objective Data
-
Vital Signs:
Vital Signs
Temp Pulse Resp BP Pulse Ox
97.3 F 89 32 120/59 86
08/29/24 15:30 08/29/24 15:17 08/29/24 15:17 08/29/24 14:00 08/29/24 15:17
I&O
08/28/24 08/29/24 08/30/24
06:59 06:59 06:59
Intake Total 50 / 50 1920 / 1920
Output Total 650 / 650 700 / 700 1300 / 1300
Balance -600 / -600 1220 / 1220 -1300 / -1300
[2024-08-29] MEDS: D5/0.9% SODIUM CHLORIDE 1000 IV (20:42)
[2024-08-29] MEDS: DESYREL 25 MG TUBE (20:53)
[2024-08-29 21:52] LABS: Glucose - Point of Care 193 mg/dl (70-99)
[2024-08-30] VITALS (14 sets, daily range): BP systolic 94–139; BP diastolic 61–80; BMI 26.1
[2024-08-30] MEDS: ROBITUSSIN 200 MG TUBE ×6 (00:34→19:55)
[2024-08-30 01:03] LABS: Glucose - Point of Care 237 mg/dl (70-99)
[2024-08-30] MEDS: NOVOLOG FLEXPEN-MODERATE RESISTANCE 3 UNITS SC ×2 (01:04→06:23)
[2024-08-30] MEDS: DECADRON 4 MG IV ×2 (01:05→14:39)
[2024-08-30 01:06] LABS: Blood Urea Nitrogen 15 mg/dl (9-20); Calcium 8.2 mg/dl (8.4-10.2); Carbon Dioxide 18 mmol/L (22-30); Chloride 107 mmol/L (98-107); Estimated Creatinine Clearance 88 ml/min; Glucose 224 mg/dl (70-99); Potassium 4.4 mmol/L (3.5-5.1); Sodium 137 mmol/L (135-145); eGFR > 60.00
--- NOTE | 2024-08-30 01:53 | PTCARENOTE ---
Pt remains on HF 50L 100% with NRB, 90% Continues with R nare DHT without feeds ordered. Meds crushed through tube per MD orders. Pt asking staff questions about and dying, which staff directed to this RN. Answered to the best of ability, but
explained to pt that there are uncertainties regarding these topics. Comfort provided. Care ongoing.
--- NOTE | 2024-08-30 02:59 | PTCARENOTE ---
Pt removed NRB, desat to 80% with slow recovery once NRB replaced.
[2024-08-30 04:12] LABS: % Basophils 0.2 % (0-2); % Immature Granulocytes 0.9 % (0-0.5); % Lymphocytes 6.2 % (20.5-51.1); % Monocytes 1.8 % (1.7-9.3); % Neutrophils 90.9 % (42.2-75.2); Absolute Immature Granulocytes 0.1 10^3/uL (0-0.05); Absolute Lymphocytes 0.7 10^3/uL (1.2-3.4); Absolute Monocytes 0.2 10^3/uL (0.1-0.6); Absolute Neutrophils 10.5 10^3/uL (1.4-6.5); Hematocrit 25.5 % (39.0-52.0); Hemoglobin 8.5 g/dL (13.0-18.0); Mean Corp Hgb Conc. 33.3 g/dL (33.0-37.0); Mean Corpuscular Hgb 29.2 pg (27.0-31.0); Mean Corpuscular Volume 87.6 fL (80.0-94.0); Mean Platelet Volume 8.2 fL (7.4-10.4); Nucleated Red Blood Cells % 0 % (-); Platelet Count 832 10^3/uL (130-400); Red Blood Cell Count 2.91 10^6/uL (4.70-6.10); Red Cell Dist. Width 14.2 % (11.5-14.5); White Blood Cell Count 11.6 10^3/uL (4.8-10.8)
[2024-08-30 04:22] LABS: Blood Urea Nitrogen 16 mg/dl (9-20); Calcium 8.3 mg/dl (8.4-10.2); Carbon Dioxide 19 mmol/L (22-30); Chloride 106 mmol/L (98-107); Estimated Creatinine Clearance 88 ml/min; Glucose 217 mg/dl (70-99); Potassium 4.5 mmol/L (3.5-5.1); Sodium 136 mmol/L (135-145); eGFR > 60.00
[2024-08-30] MEDS: TYLENOL 1000 MG TUBE ×2 (06:23→14:40)
[2024-08-30 06:34] LABS: Glucose - Point of Care 248 mg/dl (70-99)
[2024-08-30] MEDS: MORPHINE SULFATE 1 MG IV ×3 (07:12→20:54)
[2024-08-30] MEDS: DUONEB 3 ML INH ×3 (07:24→15:18)
[2024-08-30] MEDS: COLACE LIQUID 200 MG TUBE (08:41)
[2024-08-30] MEDS: CLARITIN 10 MG TUBE (08:41)
[2024-08-30] MEDS: LIPITOR 20 MG TUBE (08:41)
[2024-08-30] MEDS: LIDOCAINE 4% PATCH 1 PATCH TOPICAL (08:42)
[2024-08-30] MEDS: LOPRESSOR 6.25 MG TUBE (08:43)
[2024-08-30] MEDS: LOW STRENGTH ASPIRIN 81 MG TUBE (08:44)
[2024-08-30] MEDS: NORVASC 10 MG TUBE (08:45)
[2024-08-30] MEDS: PLAVIX 75 MG TUBE (08:45)
[2024-08-30] MEDS: SENOKOT 8.6 MG TUBE (08:46)
[2024-08-30] MEDS: THIAMINE INJECTION 100 MG IV (08:46)
[2024-08-30] MEDS: D5/0.9% SODIUM CHLORIDE 1000 IV (08:47)
[2024-08-30] MEDS: VISBIOME 1 CAP TUBE (08:47)
--- NOTE | 2024-08-30 09:13 | W.PN.PUL3 ---
Today's Communication / Plan
-
Hospice consult, appreciate efforts
Spoke with sister on the phone, she agrees in comfort measures
He has not improved clinically, and I do feel he does not understand (incompetent) to make decisions
Sister was ok with comfort measures, will notify care team
We will sign off once measures are in place, pls call with questions
Assessment
-
73-year-old man with past medical history noted. senior living resident. Admitted to the hospital after an episode of vomiting and subsequent hypoxemia and chest discomfort. We were consulted on 08/15/2024 for evaluation.
Acute hypoxemic respiratory failure requiring high flow oxygen
ABG 08/14/2024: 7.48-respiratory alkalosis acute
Pneumonia: Suspect aspiration after emesis episode.
Chest x-ray: Reviewed, showed bibasilar infiltrates.
Negative COVID/negative syncytial virus/negative influenza
MRSA screening negative
CT chest 08/14/2024:Reviewed, showed no evidence for central pulmonary embolism. Bibasilar confluent parenchymal opacity in both lower lobes and left upper lobe. Atelectasis versus pneumonia. Small right pleural effusion, minimal left pleural
effusion. Moderate hiatal hernia. Fatty liver infiltration.
Sepsis syndrome due to above.
Moderately increased proBNP 1590/negative troponin
Leukocytosis
Acute kidney injury - improving
Conditions present prior admission:
Left hemiparesis status post CVA
Hypertension
Type 2 diabetes
Atrial fibrillation of unknown type-not on anticoagulation
Anxiety/depression
History of autism
GERD
History of bladder cancer
Plan
Asked for re-eval 08/29/24
At this time, patient continues to require high flow oxygen and nonrebreather. Desaturation into the low 70-80s at times
Now maintained on max settings--100% on 50LPM
There has been little to no improvement over the past few days since transfer from ICU
Chest x-ray 08/22 with worsening bilateral infiltrates, poor inspiratory effort
Repeat CXR 08/26 improved but not resolved
Aspiration still suspected, completed about 3-4 days of abx (MRP/Doxy), stopped 08/26
Continue with airway clearance, positional therapy, oxygen therapy
Patient remains n.p.o., high aspiration risk, DHT in place
Speech following but limited on assessments due to respirator failure at current condition
Last eval by speech in 2021: +mild oral dysphagia, likely chronic vs. [id number], compounded by residual L-sided weakness which impacts self feeding
Sister who is power of christmas tree grader does not want any feeding tube
This is likely not to improve
Check proBNP, not maintained on diuresis
Check procal again to reassess
Sputum culture is not obtainable
Can start IV steroids as his hypoxemia is ongoing and profound
CVA with residual left hemiparesis, stable
DVT prophylaxis with heparin
Patient is DNR--recommend continued GOC discussions
Discussed with patient today and he was agreeable to meeting with hospice
Spoke with sister today and she is in agreement to make this decision for him since he does not understand what is going on--incompetent to make decisions
Family Discussions
Sirisha - Prognosis guarded; hospice was discussed with the patient by Dr. Glez as well as Dr. Munson. Patient states to me that he is not interested in hospice. This will be an ongoing discussion
I brought it up again today. Patient asked me to contact his friend Xander. I spoke with Xander as well. Xander was asking questions to suggest poor insight into the process such as do have him on oxygen, heavy given him any antibiotics.
I also contacted his Sister Annette power of christmas tree grader. Reviewed his clinical course over the last 2 days, increased oxygen requirement, worsening chest x-ray. Also reviewed the fact that patient is currently n.p.o.
Diagnostic Data
CXR 08/26/24- Overall, improvement in inflation of both lungs compared to most recent radiograph.
08/22/24- Extremely limited study with low lung volumes and patient's chin obscuring the medial lung apices.
INCREASED opacification bilaterally, as noted above, markedly limited, possibly at least in part representing layering bilateral pleural effusions. Atelectasis and/or pneumonia also possible.
CT CHEST 08/14/24- No evidence for central pulmonary embolism. Confluent parenchymal opacity within both lower lobes as well as the posterior aspect of the left upper lobe. Morphologic appearance is most suggestive of atelectasis. Underlying
pneumonia difficult to completely exclude. Small right pleural effusion and minimal left pleural effusion. Moderate hiatal hernia/partially intrathoracic stomach, with prominent surrounding fat, extending into the medial aspect of both hemithoraces.
Fatty infiltration of the liver.
ECHO 08/15/24- Normal left ventricular size, wall thickness and systolic function. No regional wall motion abnormalities are seen. LV ejection fraction is 70% by Cavazos's method of discs. Normal diastolic function. Normal right ventricular size and
function. Aortic sclerosis without stenosis. Mild to moderate aortic regurgitation. No prior study for comparison
PFT
Reports and relevant images were personally reviewed.
-----
Total time spent on this encounter _51__ minutes which includes review of history, physical exam, medications, laboratory data, personal review of imaging, extensive review of outpatient records, and discussions with care team.
Subjective Data
-
Date of Service:
Date of Service: August 30, 2024
Chief Complaint: Pulmonary Follow Up (Pneumonia/hypoxemic respiratory failure)
Subjective:
No changes clinically, remains on max settings
Complaining of wanting to eat by mouth but not understanding why he can't
Complains of shoulder pain as well
Objective Data
Data Reviewed
Vital Signs / I&O / Oxygen:
Vital Signs
Temp Pulse Resp BP Pulse Ox
98.2 F 94 23 111/68 94
08/29/24 23:40 08/30/24 08:45 08/30/24 07:27 08/30/24 08:45 08/30/24 07:27
Intake and Output
08/29/24 08/30/24 08/31/24
06:59 06:59 06:59
Intake Total 1920 / 1920 900 / 900
Output Total 700 / 700 2300 / 2300
Balance 1220 / 1220 -1400 / -1400
SaO2 94
Nasal Cannula flow liters per 50
minute
Physical Exam
General: Comfortable (Conversing) and Other (NAD)
HEENT: Normocephalic, Anicteric and Other (edentulous)
Cardiovascular: S1-S2, Regular Rhythm, Murmur (n) and Peripheral Edema (negative)
Respiratory: Wheeze (n), Crackles (few), Rhonchi (n), Non-Labored Respirations, Stridor (n) and Other (Poor inspiratory effort, decreased)
GI: Soft, Non Distended, Non Tender and Normal Bowel Sounds
Neurology: Awake, Alert, Other (confused, not follow commands/answering at times) and Other (Left hemiplegia)
Skin: Cyanosis (n) and Bruising (Few)
Labs/Micro/Reports
Lab Data
08/30/24 03:48
08/30/24 03:48
--- NOTE | 2024-08-30 09:49 | PTCARENOTE ---
Rec'd pt this AM. Pt removed NRB mask to brush teeth and O2 sat dropped to 60s. Pt tachypnic and anxious at that time. PRN Morphine given with good effect. PT callmer, O2 sat improved. Nursing students and instructor giving meds and Pt is responsive
to the additional attention. Responds to calm, soothing discussion.
--- NOTE | 2024-08-30 10:06 | CM ---
Patient from [facility] with Hx CVA with hemiplegia/hemiparesis, Autism. High flow O2.
CM Consult Hospice
Message from Dr Peñaloza: Dr. Mendez ordered hospice consult, Dr. Mendez talked with the patient who said he is willing to do hospice. He is asking if hospice nurse can reach out to sister who is POA.
Referral to [facility].
Plan follow up after seen by Hospice.
[2024-08-30] MEDS: NOVOLOG FLEXPEN-MODERATE RESISTANCE 5 UNITS SC (12:20)
[2024-08-30 12:24] LABS: Glucose - Point of Care 256 mg/dl (70-99)
--- NOTE | 2024-08-30 16:07 | W.PN.HOSP.TC ---
Today's Communication/Plan
-
Comfort Care
Transfer to [address] [place] [address]
Assessment / Plan
Assessment / Plan
Physical Exam
Gen-AAOx3, NAD
HEENT-NC, AT
Neck-supple
CV-reg, no M, +S1/S2
Lungs-bilateral rhonchi
Abd-soft, NT, ND. Positive bowel sounds.
Ext-no edema
Musculoskeletal-no cyanosis
Skin-warm and dry
Neuro-grossly non-focal.
Psych-calm, cooperative. Poor insight and understanding of current medical condition.
Assessment/Plan
Acute Hypoxic Respiratory Failure -Secondary to Severe Pneumonia and Significant Atelectasis
Sepsis Secondary to aspiration pneumonia
Dysphagia - causing severe aspiration pneumonia
Hypokalemia
Hyponatremia
Acute Kidney Injury
Atrial fibrillation
Essential Hypertension
Type 2 Diabetes Mellitus
Acute on chronic anemia
ASCVD
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
Anxiety / Depression
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
GERD
History of bladder cancer
Code Status: DNR/DNI
-Per Dr. Glez's hospitalist progress note from 08/26/24:
'Dispo -prognosis unfortunately remains poor for recovery. Updated family and POA extensively.
Unfortunately Zack is not improving clinically. He seems to have very little insight as to how ill he really is. I asked him if he wants to make medical decisions for himself or if I should speak with his sister who is the POA. Zack still
wants to make his own decisions. However, I do not believe he has decision-making capacity given his underlying autism, possible developmental delay.
I had a valentín discussion with him today again regarding my recommendation for comfort measures and hospice. I do not believe that he will survive. I did mention this to him as well and he got somewhat tearful, but again asked me to do everything I
can to make him better.
May need to involve ethics committee moving forward.'
-On 08/27/24, I called patient's sister Annette, who is patient's POA, and updated her on patient's current situation and code and intubation status. Annette agreed with patient's DNR/DNI status (which is what patient wants), and she agrees with
current management.
-On 08/28/24, it was noted again that patient does not have medical decision capacity for himself. On 08/28/24, I called patient's sister Annette again, who confirmed that patient is both a DNR and DNI status and she agreed with current medical
management.
-On 08/29/24, it was noted again that patient does not have a full medical decision capacity for himself and lacks insight. I consulted psychiatry who mentioned that patient does not demonstrate full capacity to understand or manipulate the
information on his current medical condition and poor prognosis, appears to have limited ability to accept or cope with this, and it was recommended to continue to involve patient's sister, who is POA, in treatment decisions. On 08/29/24, I called
patient's sister Annette again, she said that if there is no meaningful recovery, then no tube feeds (I explained to her the risks of aspiration) or TPN (I explained to her the complications of this) at this time.
-Today 08/30/24, I spoke with rn teacher Dr. Mendez, who today spoke to both patient's sister Annette who agreed that comfort care/hospice is the best path forward for the patient, and patient also stated today to Dr. Mendez that patient has agreed to
do hospice/comfort care. Patient still clearly demonstrates that he does not have capacity to make his own medical decisions. Manager Strategic Dr. Mendez, hospice nurse Nohemi Luo and myself all spoke today to patient's sister Annette, and patient's
sister Annette has agreed to have patient started on Comfort Care Measures, starting now. Annette clearly understood what Comfort Care meant and I explained in detail which medications would be stopped and which ones (e.g. as needed Morphine) would be
started. Annette also said patient would be happy with comfort feeding and diet -- therefore I will start a diet for patient.
Anticipated Discharge: > 48 hours
Subjective/Interval History
-
Date of Service: August 30, 2024
Patient was seen and examined. He said he was thirsty and wanted to eat.
Objective Data
-
Labs:
Laboratory Results
08/30/24
03:48
WBC 11.6 H
Hgb 8.5 L
Hct 25.5 L
Plt Count 832 H
Sodium 136
Potassium 4.5
Chloride 106
Carbon Dioxide 19 L
BUN 16
Creatinine 0.7
Glucose 217 H
Calcium 8.3 L
Vital Signs:
Vital Signs
Temp Pulse Resp BP Pulse Ox
98.1 F 74 23 111/68 92
08/30/24 15:24 08/30/24 15:19 08/30/24 15:19 08/30/24 08:45 08/30/24 15:19
I&O
08/29/24 08/30/24 08/31/24
06:59 06:59 06:59
Intake Total 1920 / 1920 900 / 900
Output Total 700 / 700 2300 / 2300
Balance 1220 / 1220 -1400 / -1400
--- NOTE | 2024-08-30 17:33 | PTCARENOTE ---
Pt transitioned to comfort measures. Excited to be able to eat and drink. Not currently in any distress. Remains on HF for comfort, removed NRB mask.
--- NOTE | 2024-08-30 20:29 | PTCARENOTE ---
Pt on comfort measures. Excited to eat his waterice. pt is comfortable on midflow 15L at 85%. pt is to be transferred to [facility].
[2024-08-30] MEDS: ZOFRAN 4 MG IV (20:51)
[2024-08-31] MEDS: ROBITUSSIN PO ×7 (00:09→23:47)
[2024-08-31] MEDS: MORPHINE SULFATE 1 MG IV ×6 (00:13→21:55)
[2024-08-31] MEDS: ROBITUSSIN 200 MG PO (03:47)
[2024-08-31] MEDS: ZOFRAN 4 MG IV ×2 (03:53→16:15)
[2024-08-31] MEDS: HALDOL 2.5 MG IV ×2 (04:16→16:16)
[2024-08-31 07:40] VITALS: BP 119/63
[2024-08-31] MEDS: LIDOCAINE 4% PATCH TOPICAL (08:09)
--- NOTE | 2024-08-31 11:46 | CM ---
Reviewed the chart notes and spoke with attending. CM continues to be available to patient/family.
Plan: Comfort Care
[2024-08-31] MEDS: ATIVAN 0.25 MG IV ×2 (12:49→18:39)
--- NOTE | 2024-08-31 13:12 | W.PN.HOSP.TC ---
Today's Communication/Plan
-
Continue comfort care
Assessment / Plan
Assessment / Plan
Physical Exam
Gen-NAD
HEENT-NC, AT
Neck-supple
CV-reg, no M, +S1/S2
Lungs-bilateral rhonchi
Abd-soft, NT, ND. Positive bowel sounds.
Ext-no edema
Musculoskeletal-no cyanosis
Skin-warm and dry
Neuro-Lethargic
Psych-calm
Assessment/Plan
Acute Hypoxic Respiratory Failure -Secondary to Severe Pneumonia and Significant Atelectasis
Sepsis Secondary to aspiration pneumonia
Dysphagia - causing severe aspiration pneumonia
Hypokalemia
Hyponatremia
Acute Kidney Injury
Atrial fibrillation
Essential Hypertension
Type 2 Diabetes Mellitus
Acute on chronic anemia
ASCVD
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
Anxiety / Depression
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
GERD
History of bladder cancer
Code Status: DNR/DNI
-Per Dr. Glez's hospitalist progress note from 08/26/24:
'Dispo -prognosis unfortunately remains poor for recovery. Updated family and POA extensively.
Unfortunately Zack is not improving clinically. He seems to have very little insight as to how ill he really is. I asked him if he wants to make medical decisions for himself or if I should speak with his sister who is the POA. Zack still
wants to make his own decisions. However, I do not believe he has decision-making capacity given his underlying autism, possible developmental delay.
I had a valentín discussion with him today again regarding my recommendation for comfort measures and hospice. I do not believe that he will survive. I did mention this to him as well and he got somewhat tearful, but again asked me to do everything I
can to make him better.
May need to involve ethics committee moving forward.'
-On 08/27/24, I called patient's sister Annette, who is patient's POA, and updated her on patient's current situation and code and intubation status. Annette agreed with patient's DNR/DNI status (which is what patient wants), and she agrees with
current management.
-On 08/28/24, it was noted again that patient does not have medical decision capacity for himself. On 08/28/24, I called patient's sister Annette again, who confirmed that patient is both a DNR and DNI status and she agreed with current medical
management.
-On 08/29/24, it was noted again that patient does not have a full medical decision capacity for himself and lacks insight. I consulted psychiatry who mentioned that patient does not demonstrate full capacity to understand or manipulate the
information on his current medical condition and poor prognosis, appears to have limited ability to accept or cope with this, and it was recommended to continue to involve patient's sister, who is POA, in treatment decisions. On 08/29/24, I called
patient's sister Annette again, she said that if there is no meaningful recovery, then no tube feeds (I explained to her the risks of aspiration) or TPN (I explained to her the complications of this) at this time.
-On 08/30/24: I spoke with marine tower operator Dr. Mendez, who today spoke to both patient's sister Annette who agreed that comfort care/hospice is the best path forward for the patient, and patient also stated today to Dr. Mendez that patient has agreed to do
hospice/comfort care. Patient still clearly demonstrates that he does not have capacity to make his own medical decisions. Vending Supervisor Dr. Mendez, hospice nurse Nohemi Luo and myself all spoke today to patient's sister Annette, and patient's
sister Annette has agreed to have patient started on Comfort Care Measures, starting now. Annette clearly understood what Comfort Care meant and I explained in detail which medications would be stopped and which ones (e.g. as needed Morphine) would be
started. Annette also said patient would be happy with comfort feeding and diet -- therefore I will start a diet for patient.
-Continue Comfort Care
Anticipated Discharge: > 48 hours
Subjective/Interval History
-
Date of Service: August 31, 2024
Patient was seen and examined. No new significant events or complaints.
Objective Data
-
Labs:
Laboratory Results
08/31/24
06:00
WBC Cancelled
Hgb Cancelled
Hct Cancelled
Plt Count Cancelled
Sodium Cancelled
Potassium Cancelled
Chloride Cancelled
Carbon Dioxide Cancelled
BUN Cancelled
Creatinine Cancelled
Glucose Cancelled
Calcium Cancelled
Vital Signs:
Vital Signs
Temp Pulse Resp BP Pulse Ox
98.2 F 80 15 119/63 83
08/31/24 07:40 08/31/24 07:40 08/31/24 07:40 08/31/24 07:40 08/31/24 10:38
I&O
08/30/24 08/31/24 09/01/24
06:59 06:59 06:59
Intake Total 900 / 900
Output Total 2300 / 2300 550 / 550
Balance -1400 / -1400 -550 / -550
--- NOTE | 2024-08-31 14:25 | HOSPNOTE ---
Patient appears very comfortable and the oxygen has been removed, Patient is unresponsive at this time and appears imminent. We will continue to follow.
[2024-08-31] MEDS: ROBINUL 0.2 MG IV (16:16)
[2024-08-31 19:54] VITALS: BP 123/67
[2024-09-01] MEDS: ATIVAN 0.25 MG IV ×3 (01:12→14:40)
[2024-09-01] MEDS: MORPHINE SULFATE 1 MG IV ×5 (01:13→09:50)
[2024-09-01] MEDS: ROBINUL 0.2 MG IV ×2 (02:05→07:34)
[2024-09-01] MEDS: ROBITUSSIN PO ×4 (03:29→15:15)
[2024-09-01] MEDS: LIDOCAINE 4% PATCH TOPICAL (07:34)
[2024-09-01 07:45] VITALS: BP 97/64
[2024-09-01] MEDS: MORPHINE 100 IV (10:12)
--- NOTE | 2024-09-01 11:01 | HOSPNOTE ---
Patient was started on a morphine drip this morning. Valle catheter was also placed for end of life care management. Patient is unresponsive at this time and appears imminent. Continue comfort measures at this time. We will continue to follow
for support.
--- NOTE | 2024-09-01 11:37 | PTCARENOTE ---
Pt bladder scanned this AM for 427, islas placed per retention protocol for end of life. 3 doses of PRN morphine given within proper time frame for morphine gtt to be hung. Morphine gtt hung in lockbox on step 1 (1mg/mL/hr with 2mg breakthrough
dose). Pt resting comfortably in bed at this time.
[2024-09-01] MEDS: MORPHINE SULFATE 2 MG IV ×2 (14:39→16:06)
--- NOTE | 2024-09-01 16:05 | W.PN.HOSP.TC ---
Today's Communication/Plan
-
-Continue Comfort Care
-Valle catheter for comfort for urinary retention
Assessment / Plan
Assessment / Plan
Physical Exam
Gen-NAD
HEENT-NC, AT
Neck-supple
CV-reg, no M, +S1/S2
Lungs-bilateral rhonchi
Abd-soft, NT, ND. Positive bowel sounds.
Ext-no edema
Musculoskeletal-no cyanosis
Skin-warm and dry
Neuro-Lethargic/drowsy
Psych-calm
Assessment/Plan
Acute Hypoxic Respiratory Failure -Secondary to Severe Pneumonia and Significant Atelectasis
Sepsis Secondary to aspiration pneumonia
Dysphagia - causing severe aspiration pneumonia
Hypokalemia
Hyponatremia
Acute Kidney Injury
Atrial fibrillation
Essential Hypertension
Type 2 Diabetes Mellitus
Acute on chronic anemia
ASCVD
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
Anxiety / Depression
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
GERD
History of bladder cancer
Code Status: DNR/DNI
-Per Dr. Glez's hospitalist progress note from 08/26/24:
'Dispo -prognosis unfortunately remains poor for recovery. Updated family and POA extensively.
Unfortunately Zack is not improving clinically. He seems to have very little insight as to how ill he really is. I asked him if he wants to make medical decisions for himself or if I should speak with his sister who is the POA. Zack still
wants to make his own decisions. However, I do not believe he has decision-making capacity given his underlying autism, possible developmental delay.
I had a valentín discussion with him today again regarding my recommendation for comfort measures and hospice. I do not believe that he will survive. I did mention this to him as well and he got somewhat tearful, but again asked me to do everything I
can to make him better.
May need to involve ethics committee moving forward.'
-On 08/27/24, I called patient's sister Annette, who is patient's POA, and updated her on patient's current situation and code and intubation status. Annette agreed with patient's DNR/DNI status (which is what patient wants), and she agrees with
current management.
-On 08/28/24, it was noted again that patient does not have medical decision capacity for himself. On 08/28/24, I called patient's sister Annette again, who confirmed that patient is both a DNR and DNI status and she agreed with current medical
management.
-On 08/29/24, it was noted again that patient does not have a full medical decision capacity for himself and lacks insight. I consulted psychiatry who mentioned that patient does not demonstrate full capacity to understand or manipulate the
information on his current medical condition and poor prognosis, appears to have limited ability to accept or cope with this, and it was recommended to continue to involve patient's sister, who is POA, in treatment decisions. On 08/29/24, I called
patient's sister Annette again, she said that if there is no meaningful recovery, then no tube feeds (I explained to her the risks of aspiration) or TPN (I explained to her the complications of this) at this time.
-On 08/30/24: I spoke with casing sewer Dr. Mendez, who today spoke to both patient's sister Annette who agreed that comfort care/hospice is the best path forward for the patient, and patient also stated today to Dr. Mendez that patient has agreed to do
hospice/comfort care. Patient still clearly demonstrates that he does not have capacity to make his own medical decisions. Sap Sd Analyst Dr. Mendez, hospice nurse Nohemi Luo and myself all spoke today to patient's sister Annette, and patient's
sister Annette has agreed to have patient started on Comfort Care Measures, starting now. Annette clearly understood what Comfort Care meant and I explained in detail which medications would be stopped and which ones (e.g. as needed Morphine) would be
started. Annette also said patient would be happy with comfort feeding and diet -- therefore I will start a diet for patient.
-Continue Comfort Care
-Valle catheter for comfort for urinary retention
Anticipated Discharge: > 48 hours
Subjective/Interval History
-
Date of Service: September 01, 2024
Patient was seen and examined. He remained comfortable.
Objective Data
-
Vital Signs:
Vital Signs
Temp Pulse Resp BP Pulse Ox
99.0 F 131 28 97/64 92
09/01/24 07:45 09/01/24 07:45 09/01/24 07:45 09/01/24 07:45 09/01/24 11:45
I&O
08/31/24 09/01/24 09/02/24
06:59 06:59 06:59
Intake Total 0 / 0 0 / 0
Output Total 550 / 550 320 / 320 400 / 400
Balance -550 / -550 -320 / -320 -400 / -400
--- NOTE | 2024-09-01 16:31 | PTCARENOTE ---
This RN went in to check on patient to find that pt had no pulse/respirations. MD made aware, awaiting MD to pronounce.
--- NOTE | 2024-09-01 16:50 | W.PN.DEATH ---
Pronouncement of
-
Called to see patient to pronounce.
No spontaneous heart tones or respirations noted.
Patient not responsive to verbal stimuli.
Patient is pronounced .
Time of : 16:41
Date of : 09/01/24
Cause of : Acute respiratory failure with hypoxia secondary to pneumonia
Family Notified: Yes
--- NOTE | 2024-09-01 17:08 | PTCARENOTE ---
Pt pronounced, see summary. GOL and POA called, islas and midline removed. Watch placed in pt belonging bag. Post mortem care provided.
== END 2024-09-01 16:41 | disposition expired | DRG 871 ==
LOC: 2 NORTH 22:39
PROVIDERS: Emergency Medicine; Hospitalist; Internal Medicine; Student in an Organized Health Care Education/Training Program; ADMITTING PHYSICIAN Hospitalist; ATTENDING PHYSICIAN Hospitalist; CONSULT PHYSICIAN Internal Medicine Infectious Disease; EMERGENCY PHYSICIAN Emergency Medicine; FAMILY PHYSICIAN Internal Medicine; OTHER PHYSICIAN Internal Medicine Critical Care Medicine; OTHER PHYSICIAN Internal Medicine Gastroenterology
DX: A41.9 Sepsis, unspecified organism (principal); J69.0 Pneumonitis due to inhalation of food and vomit; J96.01 Acute respiratory failure with hypoxia; J98.11 Atelectasis; N17.9 Acute kidney failure, unspecified; I48.20 Chronic atrial fibrillation, unspecified; I69.354 Hemiplegia and hemiparesis following cerebral infarction affecting left non-dominant side; E87.3 Alkalosis; F01.518 Vascular dementia, unspecified severity, with other behavioral disturbance; F01.53 Vascular dementia, unspecified severity, with mood disturbance; F01.54 Vascular dementia, unspecified severity, with anxiety; F84.0 Autistic disorder; Z11.52 Encounter for screening for COVID-19; I10 Essential (primary) hypertension; E11.9 Type 2 diabetes mellitus without complications; I25.10 Atherosclerotic heart disease of native coronary artery without angina pectoris; F32.A Depression, unspecified; Z66 Do not resuscitate; Z51.5 Encounter for palliative care; K21.9 Gastro-esophageal reflux disease without esophagitis; I70.0 Atherosclerosis of aorta; Z79.01 Long term (current) use of anticoagulants; Z79.02 Long term (current) use of antithrombotics/antiplatelets; Z79.82 Long term (current) use of aspirin; Z79.899 Other long term (current) drug therapy; Z85.51 Personal history of malignant neoplasm of bladder; Z87.891 Personal history of nicotine dependence; Z88.0 Allergy status to penicillin; R65.20 Severe sepsis without septic shock
CPT/HCPCS: 36600; 71045; 71046; 71275; 74018; 80048; 80053; 80202; 81003; 81015; 82805; 82962; 83036; 83605; 83735; 83880; 84145; 84484; 85025; 85027; 87070; 87086; 87205; 87502; 87807; 87811; 92507; 92526; 92610; 93005; 93306; 94640; 94668; 94669; 96361; 96365; 96366; 96375; 99285; J2185; Q9967